=== PATIENT | male | born 1950 | race Caucasian/White ===

== ENCOUNTER 2016-11-23 11:58 | Inpatient (IN) | payer OTHER, MEDICARE ==
[~2016-11-23] VITALS: Ht 188 cm; Wt 95.0 kg
[~2016-11-23 11:58] MED LIST: HYDR-2595; HYDR25TA4; NIFE30TA70; NORTRIPTYLINE HCL 10 MG CAP; OMEPRAZOLE DR 20 MG CAPSULE
[2016-11-23 13:45] LABS: Basophils # (auto) 0 uL; Basophils % (auto) 0.1 % (0.0-2.0); Eosinophils # (auto) 0.2 uL; Eosinophils % (auto) 1.7 % (0.0-7.0); Hematocrit 54.3 % (41.0-53.0); Hemoglobin 17.5 g/dL (13.5-17.5); Lymphocytes # (auto) 2.8 uL; Lymphocytes % (auto) 23.5 % (10.0-50.0); Mean Corpuscular Hemoglobin 29.8 pg (28.0-32.0); Mean Corpuscular Hgb Conc. 32.3 g/dL (32.0-36.0); Mean Corpuscular Volume 92.5 fL (80.0-100.0); Mean Platelet Volume 8.6 fL (7.4-10.4); Monocytes # (auto) 0.6 uL; Monocytes % (auto) 5.2 % (0.0-12.0); Neutrophils # (auto) 8.2 uL; Neutrophils % (auto) 69.5 % (37.0-80.0); Platelet Count (auto) 264 10^3/uL (140-450); Red Cell Distribution Width 13.8 % (11.6-16.0); White Blood Cell 11.8 10^3/uL (4.4-10.8)
[2016-11-23] MEDS ORDERED: HYDROcodone-ACET 10/325MG TAB PO ONE (14:00)
[2016-11-23 14:01] LABS: Albumin 3.1 g/dL (3.4-5.0); Bilirubin, Total 1.4 mg/dL (0.2-1.0); Calcium 9.1 mg/dL (8.5-10.1); Magnesium 1.9 mg/dL (1.6-2.6); Potassium 4.7 mmol/L (3.5-5.1); Total Protein 7.9 g/dL (6.4-8.2)
[2016-11-23 14:09] LABS: B-Type Natriuretic Peptide 255.08 pg/mL (0-100); Temperature: 23.4 C (20.0-25.0)
[2016-11-23] MEDS ORDERED: LOPERAMIDE HCL 2 MG CAP PO ONE (14:45)
[2016-11-23] MEDS ORDERED: PROMETHAZINE HCL 25 MG/ML 1ML IV PRN (14:45)
[2016-11-23] MEDS ORDERED: ACETAMINOPHEN 500 MG TAB PO PRN (14:45)
[2016-11-23] MEDS ORDERED: SODIUM CHLORIDE 0.9% 500 ML IV ONE (14:45)
[2016-11-23] MEDS ORDERED: LORazepam 0.5 MG TAB PO PRN (14:45)
[2016-11-23] MEDS ORDERED: LACTULOSE 20Gm/30ML SOLN PO PRN (14:45)
[2016-11-23] MEDS ORDERED: MORPHINE SULF INJ 2 MG/ML SYRINGE 1ML IV PRN ×2 (14:45)
[2016-11-23] MEDS ORDERED: TEMAZEPAM 15 MG CAP PO PRN (14:45)
[2016-11-23] MEDS ORDERED: ASPirin 81 mg TAB PO ONE (15:00)
[2016-11-23 15:15] LABS: Partial Thromboplastin Time 49.5 sec (22.64-33.71)
[2016-11-23 15:16] LABS: Prothrombin Time 46.7 sec (9.37-12.3)
[2016-11-23 15:17] LABS: INR 4.53 (0.9-1.15)
[2016-11-23] MEDS: HYDROcodone-ACET 5/325MG TAB PO PRN (20:34)
[2016-11-23] MEDS: NORTRIPTYLINE HCL 10 MG CAP PO SCH (22:00)
[2016-11-24] VITALS (7 sets, daily range): BP systolic 109–127; BP diastolic 68–85
[2016-11-24] MEDS ORDERED: LOPERAMIDE HCL 2 MG CAP PO ONE (02:00)
[2016-11-24] MEDS: HYDROcodone-ACET 5/325MG TAB PO PRN ×3 (03:15→16:22)
[2016-11-24 03:41] LABS: Urine RBC None Seen /hpf (0 - 3)
[2016-11-24 03:50] LABS: Urine Bilirubin Negative (Negative); Urine Blood Negative /uL (Negative); Urine Color Yellow (Yellow); Urine Glucose Normal (Normal); Urine Ketone Negative (Negative); Urine Nitrite Negative (Negative); Urine Urobilinogen Normal (Negative); Urine pH 5.5 (5.0-8.0)
[2016-11-24 06:20] LABS: Basophils # (auto) 0.1 uL; Basophils % (auto) 0.6 % (0.0-2.0); Eosinophils # (auto) 0.3 uL; Eosinophils % (auto) 2.5 % (0.0-7.0); Hematocrit 52.1 % (41.0-53.0); Hemoglobin 16.8 g/dL (13.5-17.5); Lymphocytes # (auto) 2.6 uL; Lymphocytes % (auto) 26.1 % (10.0-50.0); Mean Corpuscular Hemoglobin 30.5 pg (28.0-32.0); Mean Corpuscular Hgb Conc. 32.2 g/dL (32.0-36.0); Mean Corpuscular Volume 94.8 fL (80.0-100.0); Mean Platelet Volume 7.9 fL (7.4-10.4); Monocytes # (auto) 0.7 uL; Monocytes % (auto) 6.5 % (0.0-12.0); Neutrophils # (auto) 6.5 uL; Neutrophils % (auto) 64.3 % (37.0-80.0); Platelet Count (auto) 206 10^3/uL (140-450); Red Cell Distribution Width 13.8 % (11.6-16.0)
[2016-11-24 06:34] LABS: Partial Thromboplastin Time 41.1 sec (22.64-33.71); Prothrombin Time 31.6 sec (9.37-12.3)
[2016-11-24 06:35] LABS: INR 3.07 (0.9-1.15)
[2016-11-24] MEDS: NITROGLYCERIN 0.4 MG SL TAB SL PRN ×3 (06:39→06:55)
[2016-11-24 06:46] LABS: Albumin 2.9 g/dL (3.4-5.0); Bilirubin, Total 1.2 mg/dL (0.2-1.0); Calcium 8.9 mg/dL (8.5-10.1); Potassium 4.1 mmol/L (3.5-5.1); Total Protein 6.9 g/dL (6.4-8.2)
[2016-11-24 07:03] LABS: B-Type Natriuretic Peptide 277.02 pg/mL (0-100); Temperature: 21.6 C (20.0-25.0)
[2016-11-24] MEDS: ASPirin 81 mg TAB PO SCH (09:51)
[2016-11-24] MEDS: ENOXAPARIN SOD 40 MG/0.4 ML SYRINGE SC SCH (09:51)
[2016-11-24] MEDS: SODIUM CHLORIDE 0.9% 1,000 ML IV SCH (12:21)
[2016-11-24] MEDS ORDERED: LOPERAMIDE HCL 2 MG CAP PO PRN (18:00)
[2016-11-24] MEDS: HYDROcodone-ACET 10/325MG TAB PO PRN (21:24)
[2016-11-24] MEDS: NORTRIPTYLINE HCL 10 MG CAP PO SCH (21:25)
[2016-11-25 05:08] VITALS: BP 118/79
[2016-11-25 05:36] LABS: Basophils # (auto) 0.1 uL; Basophils % (auto) 0.7 % (0.0-2.0); Eosinophils # (auto) 0.3 uL; Eosinophils % (auto) 3.1 % (0.0-7.0); Hematocrit 51.7 % (41.0-53.0); Hemoglobin 16.8 g/dL (13.5-17.5); Lymphocytes # (auto) 2.5 uL; Lymphocytes % (auto) 26.2 % (10.0-50.0); Mean Corpuscular Hemoglobin 30.2 pg (28.0-32.0); Mean Corpuscular Hgb Conc. 32.6 g/dL (32.0-36.0); Mean Corpuscular Volume 92.6 fL (80.0-100.0); Mean Platelet Volume 8.2 fL (7.4-10.4); Monocytes # (auto) 0.7 uL; Monocytes % (auto) 6.8 % (0.0-12.0); Neutrophils # (auto) 6.1 uL; Neutrophils % (auto) 63.2 % (37.0-80.0); Platelet Count (auto) 242 10^3/uL (140-450); Red Cell Distribution Width 13.5 % (11.6-16.0); White Blood Cell 9.6 10^3/uL (4.4-10.8)
[2016-11-25 05:53] LABS: INR 1.84 (0.9-1.15)
[2016-11-25 06:00] LABS: BUN/Creatinine Ratio 32.6; Calcium 9.4 mg/dL (8.5-10.1); Magnesium 1.7 mg/dL (1.6-2.6); Potassium 4.1 mmol/L (3.5-5.1)
[2016-11-25] MEDS: HYDROcodone-ACET 10/325MG TAB PO PRN (08:49)
[2016-11-25 09:00] VITALS: BP 125/83
[2016-11-25] MEDS: ASPirin 81 mg TAB PO SCH (11:30)
[2016-11-25] MEDS: SODIUM CHLORIDE 0.9% 1,000 ML IV SCH (11:30)
[2016-11-25] MEDS: ENOXAPARIN SOD 40 MG/0.4 ML SYRINGE SC SCH (11:30)
[2016-11-25 12:41] VITALS: BP 118/72
[2016-11-25 15:18] VITALS: BP 118/72
[2016-11-25] MEDS ORDERED: WARFARIN SODIUM 2.5 MG TAB PO ONE (17:00)
== END 2016-11-25 16:40 | disposition home or self-care (01) | DRG 314 ==
LOC: EDBD 11:58 → ER 12:04 → TELE 12:05 → TELE-CENTR 11-24 00:01
PROVIDERS: ADMIT Internal Medicine; ATTEND Internal Medicine
DX: I95.9 Hypotension, unspecified (principal); N17.0 Acute kidney failure with tubular necrosis; I13.0 Hypertensive heart and chronic kidney disease with heart failure and stage 1 through stage 4 chronic kidney disease, or unspecified chronic kidney disease; I50.42 Chronic combined systolic (congestive) and diastolic (congestive) heart failure; N17.9 Acute kidney failure, unspecified; D68.8 Other specified coagulation defects; I48.92 Unspecified atrial flutter; I48.91 Unspecified atrial fibrillation; K21.9 Gastro-esophageal reflux disease without esophagitis; N18.3 Chronic kidney disease, stage 3 (moderate); E86.0 Dehydration; F41.9 Anxiety disorder, unspecified; F10.10 Alcohol abuse, uncomplicated; G89.29 Other chronic pain; M54.5 Low back pain; Z90.49 Acquired absence of other specified parts of digestive tract; Z90.89 Acquired absence of other organs; Z82.49 Family history of ischemic heart disease and other diseases of the circulatory system; Z79.899 Other long term (current) drug therapy; Z87.891 Personal history of nicotine dependence
CPT/HCPCS: 36415; 71010; 80048; 80053; 80061; 81001; 82550; 83605; 83735; 83880; 84443; 84484; 85025; 85379; 85610; 85652; 85730; 86141; 87040; 87081; 87493; 93005; 93306; 96360; 99291; G0434

== ENCOUNTER 2017-05-09 16:05 | Emergency (ER) | payer MEDICARE, OTHER ==
[~2017-05-09] VITALS: Ht 185.4 cm; Wt 93.0 kg
[2017-05-09 17:03] LABS: Basophils # (auto) 0 uL; Basophils % (auto) 0.4 % (0.0-2.0); CONDITION Y; Eosinophils # (auto) 0.1 uL; Eosinophils % (auto) 0.9 % (0.0-7.0); Hematocrit 40.7 % (41.0-53.0); Hemoglobin 13.9 g/dL (13.5-17.5); Lymphocytes # (auto) 0.9 uL; Lymphocytes % (auto) 16.3 % (10.0-50.0); Mean Corpuscular Hemoglobin 31.6 pg (28.0-32.0); Mean Corpuscular Volume 92.8 fL (80.0-100.0); Mean Platelet Volume 8.4 fL (7.4-10.4); Monocytes # (auto) 0.7 uL; Monocytes % (auto) 12.3 % (0.0-12.0); Neutrophils # (auto) 3.9 uL; Neutrophils % (auto) 70.1 % (37.0-80.0); Platelet Count (auto) 153 10^3/uL (140-450); Red Cell Distribution Width 13.4 % (11.6-16.0); White Blood Cell 5.5 10^3/uL (4.4-10.8)
[2017-05-09 17:07] LABS: Albumin 2.7 g/dL (3.4-5.0); BUN/Creatinine Ratio 24.6; Magnesium 1.1 mg/dL (1.6-2.6); Potassium 4.7 mmol/L (3.5-5.1)
[2017-05-09 17:09] LABS: Bilirubin, Total 0.8 mg/dL (0.2-1.0); Total Protein 6.7 g/dL (6.4-8.2)
[2017-05-09] MEDS ORDERED: SODIUM CHLORIDE 0.9% 1,000 ML IV ONE ×2 (18:00→19:15)
[2017-05-09] MEDS ORDERED: HYDROcodone-ACET 7.5/325MG TAB PO ONE (18:00)
[2017-05-09] MEDS ORDERED: MAGNESIUM CITRATE SOLUTION 300 ML BTL PO ONE (19:15)
[2017-05-09] MEDS ORDERED: ONDANSETRON HCL 4 MG/2 ML VIAL IV ONE (19:15)
[2017-05-09] MEDS ORDERED: SODIUM CHLORIDE 0.9% 500 ML IV ONE (22:00)
[2017-05-09] MEDS ORDERED: HYDROcodone-ACET 10/325MG TAB PO ONE (22:30)
[2017-05-10] MEDS ORDERED: metroNIDAZOLE 500 MG TAB PO ONE (03:45)
[2017-05-10] MEDS ORDERED: HYDROcodone-ACET 5/325MG TAB PO ONE (05:15)
[2017-05-10] MEDS ORDERED: LOPERAMIDE HCL 2 MG CAP PO ONE (07:45)
[2017-05-10 10:37] VITALS: BP 91/68
== END 2017-05-10 10:51 | disposition short-term general hospital (02) ==
LOC: EDBD 16:05 → ER 16:26
DX: E86.0 Dehydration (principal); R53.1 Weakness; C80.1 Malignant (primary) neoplasm, unspecified; C79.89 Secondary malignant neoplasm of other specified sites; I50.9 Heart failure, unspecified; N18.9 Chronic kidney disease, unspecified; K21.9 Gastro-esophageal reflux disease without esophagitis; I13.0 Hypertensive heart and chronic kidney disease with heart failure and stage 1 through stage 4 chronic kidney disease, or unspecified chronic kidney disease; G89.29 Other chronic pain; M54.5 Low back pain; F17.210 Nicotine dependence, cigarettes, uncomplicated
CPT/HCPCS: 36415; 80053; 82565; 83735; 84484; 84520; 85025; 85048; 87045; 87899; 93005; 96360; 96361; 99285; J7030

== ENCOUNTER 2017-05-15 21:08 | Emergency (ER) | payer OTHER ==
[~2017-05-15] VITALS: Ht 185.4 cm; Wt 89.8 kg
[2017-05-15 21:58] LABS: Basophils # (auto) 0 uL; Basophils % (auto) 0.5 % (0.0-2.0); CONDITION Y; Eosinophils # (auto) 0.1 uL; Eosinophils % (auto) 2.1 % (0.0-7.0); Hematocrit 37.6 % (41.0-53.0); Hemoglobin 12.8 g/dL (13.5-17.5); Lymphocytes # (auto) 1.1 uL; Lymphocytes % (auto) 19.6 % (10.0-50.0); Mean Corpuscular Hemoglobin 31.8 pg (28.0-32.0); Mean Corpuscular Hgb Conc. 34.2 g/dL (32.0-36.0); Mean Corpuscular Volume 93.2 fL (80.0-100.0); Mean Platelet Volume 7.3 fL (7.4-10.4); Monocytes # (auto) 0.8 uL; Monocytes % (auto) 14.7 % (0.0-12.0); Neutrophils # (auto) 3.6 uL; Neutrophils % (auto) 63.1 % (37.0-80.0); Platelet Count (auto) 224 10^3/uL (140-450); Red Cell Distribution Width 13.9 % (11.6-16.0); White Blood Cell 5.7 10^3/uL (4.4-10.8)
[2017-05-15 22:14] LABS: INR 3.06 (0.9-1.15); Partial Thromboplastin Time 41.1 sec (22.64-33.71)
[2017-05-15 22:15] LABS: Prothrombin Time 33.7 sec (9.37-12.3)
[2017-05-15 22:24] LABS: Albumin 2.7 g/dL (3.4-5.0); BUN/Creatinine Ratio 17.1; Bilirubin, Total 0.6 mg/dL (0.2-1.0); Calcium 7.8 mg/dL (8.5-10.1); Potassium 4.3 mmol/L (3.5-5.1); Total Protein 6.7 g/dL (6.4-8.2)
[2017-05-16] MEDS ORDERED: MAGNESIUM OXIDE 400 MG TAB PO ONE (00:15)
[2017-05-16] MEDS: MAGNESIUM SULFATE 1GM/100ML 100 ML IV SCH ×3 (01:54→04:27)
[2017-05-16 03:23] VITALS: BP 103/61
[2017-05-16 04:07] LABS: Urine Bilirubin 1+ (Negative); Urine Blood Negative /uL (Negative); Urine Color Orange (Yellow); Urine Glucose Normal (Normal); Urine Hyaline Cast MOD /lpf (0 - 2); Urine Mucus FEW (None Seen); Urine Nitrite Negative (Negative); Urine RBC <1 /hpf (0 - 3); Urine Squamous Epithelial Cell FEW /hpf (<5); Urine pH 5.5 (5.0-8.0)
[2017-05-16 04:13] LABS: Urine Ketone 1+ (Negative)
== END 2017-05-16 04:28 | disposition home or self-care (01) ==
LOC: ER 21:09
DX: E83.42 Hypomagnesemia (principal); R42 Dizziness and giddiness; R53.1 Weakness; I48.91 Unspecified atrial fibrillation; K21.9 Gastro-esophageal reflux disease without esophagitis; I13.0 Hypertensive heart and chronic kidney disease with heart failure and stage 1 through stage 4 chronic kidney disease, or unspecified chronic kidney disease; N18.9 Chronic kidney disease, unspecified; I50.9 Heart failure, unspecified; F41.9 Anxiety disorder, unspecified; F17.210 Nicotine dependence, cigarettes, uncomplicated
CPT/HCPCS: 36415; 80053; 81001; 83735; 84484; 85025; 85610; 85730; 93005; 99285; J3475

== ENCOUNTER 2017-05-23 11:40 | Observation (INO) | payer OTHER, MEDICARE ==
[~2017-05-23] VITALS: Ht 185.4 cm; Wt 89.8 kg
[2017-05-23 12:26] LABS: Basophils # (auto) 0 uL; Basophils % (auto) 0.4 % (0.0-2.0); CONDITION Y; Eosinophils # (auto) 0.1 uL; Eosinophils % (auto) 0.9 % (0.0-7.0); Hematocrit 35.3 % (41.0-53.0); Hemoglobin 12.1 g/dL (13.5-17.5); Lymphocytes # (auto) 1.1 uL; Lymphocytes % (auto) 13.4 % (10.0-50.0); Mean Corpuscular Hemoglobin 31.9 pg (28.0-32.0); Mean Corpuscular Hgb Conc. 34.4 g/dL (32.0-36.0); Mean Corpuscular Volume 92.8 fL (80.0-100.0); Mean Platelet Volume 7.9 fL (7.4-10.4); Monocytes # (auto) 0.8 uL; Monocytes % (auto) 9.9 % (0.0-12.0); Neutrophils # (auto) 6.3 uL; Neutrophils % (auto) 75.4 % (37.0-80.0); Platelet Count (auto) 332 10^3/uL (140-450); Red Cell Distribution Width 14.5 % (11.6-16.0); White Blood Cell 8.4 10^3/uL (4.4-10.8)
[2017-05-23 12:29] LABS: Urine RBC None Seen /hpf (0 - 3)
[2017-05-23] MEDS ORDERED: SODIUM CHLORIDE 0.9% 1,000 ML IVB ONE (12:36)
[2017-05-23 12:40] LABS: Albumin 2.5 g/dL (3.4-5.0); BUN/Creatinine Ratio 21.2; Bilirubin, Total 0.8 mg/dL (0.2-1.0); Calcium 8.9 mg/dL (8.5-10.1); Potassium 4.5 mmol/L (3.5-5.1); Total Protein 6.4 g/dL (6.4-8.2)
[2017-05-23 12:55] LABS: Urine Bilirubin Negative (Negative); Urine Blood Negative /uL (Negative); Urine Color Yellow (Yellow); Urine Glucose Normal (Normal); Urine Ketone Negative (Negative); Urine Nitrite Negative (Negative); Urine Urobilinogen Normal (Negative); Urine pH 8.5 (5.0-8.0)
[2017-05-23 13:09] LABS: INR 1.23 (0.9-1.15); Partial Thromboplastin Time 30.8 sec (22.64-33.71)
[2017-05-23 13:11] LABS: Prothrombin Time 13.4 sec (9.37-12.3)
[2017-05-23 13:35] LABS: B-Type Natriuretic Peptide 259.71 pg/mL (0-100)
[2017-05-23 13:36] LABS: Temperature: 22.9 C (20.0-25.0)
[2017-05-23] MEDS ORDERED: SODIUM CHLORIDE 0.9% 1,000 ML IV ONE (17:30)
[2017-05-23] MEDS ORDERED: HYDROcodone-ACET 10/325MG TAB PO ONE (17:45)
[2017-05-23 20:31] VITALS: BP 112/67
== END 2017-05-23 20:58 | disposition short-term general hospital (02) | DRG 149 ==
LOC: EDBD 11:40 → ER 11:40 → OVERFLOW 12:36 → ER 20:58
PROVIDERS: ADMIT Family Medicine; ATTEND Family Medicine
DX: R42 Dizziness and giddiness (principal); I13.0 Hypertensive heart and chronic kidney disease with heart failure and stage 1 through stage 4 chronic kidney disease, or unspecified chronic kidney disease; C02.9 Malignant neoplasm of tongue, unspecified; C14.0 Malignant neoplasm of pharynx, unspecified; I95.9 Hypotension, unspecified; N18.9 Chronic kidney disease, unspecified; K21.9 Gastro-esophageal reflux disease without esophagitis; F41.9 Anxiety disorder, unspecified; I48.91 Unspecified atrial fibrillation; F17.210 Nicotine dependence, cigarettes, uncomplicated; Z82.49 Family history of ischemic heart disease and other diseases of the circulatory system; Z85.810 Personal history of malignant neoplasm of tongue
CPT/HCPCS: 36415; 70450; 71020; 80053; 81001; 82962; 83735; 83880; 84443; 84484; 85025; 85610; 85730; 93005; 96360; 96361; 99285; G0378; J7030

== ENCOUNTER 2017-11-18 14:58 | Inpatient (IN) | payer MEDICARE, OTHER ==
[~2017-11-18] VITALS: Ht 190.5 cm; Wt 108.9 kg
[~2017-11-18 14:58] MED LIST changes: +ATO40T PO; -HYDR-2595; +HYDR-4683 PO; -HYDR25TA4; +LISI2.5T47 PO; +METO-169 PO; -NIFE30TA70; -NORTRIPTYLINE HCL 10 MG CAP; +WARF5TAB71 PO
[2017-11-18] MEDS ORDERED: ASPirin 81 mg TAB PO ONE (17:30)
[2017-11-18] MEDS ORDERED: HYDROcodone-ACET 10/325MG TAB PO ONE (17:45)
[2017-11-18 17:48] LABS: Basophils # (auto) 0.1 uL; Basophils % (auto) 1.1 % (0.0-2.0); Eosinophils # (auto) 0.1 uL; Eosinophils % (auto) 0.9 % (0.0-7.0); Hematocrit 43.8 % (41.0-53.0); Lymphocytes # (auto) 1.3 uL; Lymphocytes % (auto) 13.8 % (10.0-50.0); Mean Corpuscular Hemoglobin 31.7 pg (28.0-32.0); Mean Corpuscular Hgb Conc. 34.2 g/dL (32.0-36.0); Mean Corpuscular Volume 92.7 fL (80.0-100.0); Monocytes % (auto) 10.3 % (0.0-12.0); Neutrophils # (auto) 6.8 uL; Neutrophils % (auto) 73.9 % (37.0-80.0); Platelet Count (auto) 223 10^3/uL (140-450); Red Blood Cells 4.73 10^6/uL (4.5-5.90); Red Cell Distribution Width 15.2 % (11.8-14.3); White Blood Cell 9.2 10^3/uL (4.4-10.8)
[2017-11-18 18:04] LABS: Albumin 3.4 g/dL (3.4-5.0); BUN/Creatinine Ratio 17.9; Calcium 6.7 mg/dL (8.5-10.1); Potassium 3.6 mmol/L (3.5-5.1); Total Protein 7.6 g/dL (6.4-8.2)
[2017-11-18 18:10] LABS: Partial Thromboplastin Time 61.2 sec (22.64-33.71); Prothrombin Time 77.1 sec (9.37-12.3)
[2017-11-18] MEDS ORDERED: MAGNESIUM SULFATE 1GM/100ML 100 ML IV ONE ×2 (18:30→21:31)
[2017-11-18 18:36] LABS: INR 6.94 (0.9-1.15)
[2017-11-18] MEDS: MAGNESIUM SULFATE 1GM/100ML 100 ML IV SCH ×2 (20:30→21:30)
[2017-11-18] MEDS ORDERED: PHYTONADIONE (VIT K)10 MG/ML 1ML VIAL SUBCUT ONE (21:15)
[2017-11-19] MEDS ORDERED: HYDROcodone-ACET 5/325MG TAB PO PRN (03:30)
[2017-11-19] MEDS ORDERED: ACETAMINOPHEN 500 MG TAB PO PRN (03:30)
[2017-11-19] MEDS ORDERED: MORPHINE SULFATE 4 MG/ML SYR/VIAL IV PRN ×2 (03:30)
[2017-11-19] MEDS ORDERED: NITROGLYCERIN 0.4 MG SL TAB SL PRN (03:30)
[2017-11-19] MEDS ORDERED: ONDANSETRON HCL 4 MG/2 ML VIAL IV PRN (03:30)
[2017-11-19] MEDS ORDERED: TEMAZEPAM 15 MG CAP PO PRN (03:30)
[2017-11-19 06:47] LABS: Basophils # (auto) 0.1 uL; Basophils % (auto) 1.3 % (0.0-2.0); Eosinophils # (auto) 0.1 uL; Eosinophils % (auto) 1.3 % (0.0-7.0); Hemoglobin 13.4 g/dL (13.5-17.5); Lymphocytes % (auto) 12.6 % (10.0-50.0); Mean Corpuscular Hemoglobin 32.6 pg (28.0-32.0); Mean Corpuscular Hgb Conc. 35.3 g/dL (32.0-36.0); Mean Corpuscular Volume 92.5 fL (80.0-100.0); Monocytes % (auto) 12.2 % (0.0-12.0); Neutrophils # (auto) 6.1 uL; Neutrophils % (auto) 72.6 % (37.0-80.0); Platelet Count (auto) 193 10^3/uL (140-450); Red Blood Cells 4.11 10^6/uL (4.5-5.90); Red Cell Distribution Width 15.1 % (11.8-14.3); White Blood Cell 8.3 10^3/uL (4.4-10.8)
[2017-11-19 07:04] LABS: BUN/Creatinine Ratio 20.7; Calcium 6.4 mg/dL (8.5-10.1); Magnesium 1.7 mg/dL (1.6-2.6); Potassium 3.6 mmol/L (3.5-5.1)
[2017-11-19] MEDS ORDERED: METOPROLOL SUCCINATE XL 50 MG TAB PO SCH (10:00)
[2017-11-19 11:12] LABS: INR 2.05 (0.9-1.15); Prothrombin Time 22.5 sec (9.37-12.3)
[2017-11-19 12:28] VITALS: BP 127/73
[2017-11-19 12:50] VITALS: BP 134/79
[2017-11-19] MEDS ORDERED: ATORVASTATIN 20 MG TAB PO SCH (22:00)
== END 2017-11-19 13:06 | disposition home or self-care (01) | DRG 313 ==
LOC: EDBD 14:58 → EDUNIT# 14:58 → ER 15:04 → TELE 15:05
PROVIDERS: ADMIT Nurse Practitioner Family; ATTEND Nurse Practitioner Family
DX: R07.9 Chest pain, unspecified (principal); I42.9 Cardiomyopathy, unspecified; E83.42 Hypomagnesemia; I48.0 Paroxysmal atrial fibrillation; I13.0 Hypertensive heart and chronic kidney disease with heart failure and stage 1 through stage 4 chronic kidney disease, or unspecified chronic kidney disease; I50.9 Heart failure, unspecified; T45.515A Adverse effect of anticoagulants, initial encounter; N18.3 Chronic kidney disease, stage 3 (moderate); F17.210 Nicotine dependence, cigarettes, uncomplicated; F41.9 Anxiety disorder, unspecified; K21.9 Gastro-esophageal reflux disease without esophagitis; Z79.899 Other long term (current) drug therapy; Z82.49 Family history of ischemic heart disease and other diseases of the circulatory system
CPT/HCPCS: 36415; 70450; 71010; 80048; 80053; 83735; 83880; 84443; 84484; 85025; 85379; 85610; 85730; 87400; 93005; 94761; 96365; 96366; 96375; J2405; J3430

== ENCOUNTER 2018-01-09 08:51 | Emergency (ER) | payer MEDICARE, OTHER ==
[~2018-01-09] VITALS: Ht 185.4 cm; Wt 104.3 kg
[2018-01-09 09:12] VITALS: BP 100/60
[2018-01-09] MEDS ORDERED: LIDOCAINE 1% HCL (LOCAL ANESTH.) INJ 20ML MDV IN ONE (10:15)
[2018-01-09] MEDS ORDERED: HYDROcodone-ACET 7.5/325MG TAB PO ONE (10:30)
[2018-01-09] MEDS ORDERED: KETOROLAC TROMETH 60MG/2ML VIAL IM ONE (10:30)
== END 2018-01-09 11:15 | disposition home or self-care (01) ==
LOC: ER 08:51 → EDBD 08:51 → ER 11:15
DX: M17.12 Unilateral primary osteoarthritis, left knee (principal); I11.0 Hypertensive heart disease with heart failure; I50.9 Heart failure, unspecified; K21.9 Gastro-esophageal reflux disease without esophagitis; I48.91 Unspecified atrial fibrillation; F17.210 Nicotine dependence, cigarettes, uncomplicated; Z79.899 Other long term (current) drug therapy
CPT/HCPCS: 73562; 96372; 99284; J1885; J2001

== ENCOUNTER 2018-02-21 10:37 | Emergency (ER) | payer OTHER ==
[~2018-02-21] VITALS: Ht 185.4 cm; Wt 97.5 kg
[2018-02-21] MEDS ORDERED: ASPirin 81 mg TAB PO ONE (11:15)
[2018-02-21] MEDS ORDERED: FUROSEMIDE 40 MG/4 ML VIAL IV ONE (11:15)
[2018-02-21 11:32] LABS: Basophils # (auto) 0.2 uL; Eosinophils # (auto) 0.1 uL; Hemoglobin 11.4 g/dL (13.5-17.5); Lymphocytes # (auto) 1.2 uL; Lymphocytes % (auto) 10.5 % (10.0-50.0); Mean Corpuscular Hemoglobin 31.1 pg (28.0-32.0); Mean Corpuscular Hgb Conc. 32.6 g/dL (32.0-36.0); Mean Corpuscular Volume 95.4 fL (80.0-100.0); Monocytes # (auto) 0.7 uL; Monocytes % (auto) 5.7 % (0.0-12.0); Neutrophils # (auto) 9.4 uL; Neutrophils % (auto) 80.8 % (37.0-80.0); Platelet Count (auto) 300 10^3/uL (140-450); Red Blood Cells 3.67 10^6/uL (4.5-5.90); Red Cell Distribution Width 12.6 % (11.8-14.3); White Blood Cell 11.7 10^3/uL (4.4-10.8)
[2018-02-21 11:45] LABS: INR 2.73 (0.9-1.15); Partial Thromboplastin Time 47.4 sec (22.64-33.71); Prothrombin Time 30.1 sec (9.37-12.3)
[2018-02-21 11:50] LABS: Alanine Aminotransferase 19 U/L (16-61); Albumin 2.2 g/dL (3.4-5.0); Alkaline Phosphatase 166 U/L (45-117); Anion Gap 10 (5-15); Aspartate Aminotransferase 20 U/L (15-37); BUN/Creatinine Ratio 8.1; Bilirubin, Total 0.7 mg/dL (0.2-1.0); Blood Urea Nitrogen 10 mg/dL (7-18); Carbon Dioxide 23 mmol/L (21-32); Chloride 108 mmol/L (98-107); GFR African American 75 mL/min; GFR Non-African American 62 mL/min; Glucose 96 mg/dL (74-106); Sodium 141 mmol/L (136-145); Total Protein 6.6 g/dL (6.4-8.2)
[2018-02-21 11:55] LABS: Calcium 5.5 mg/dL (8.5-10.1)
[2018-02-21] MEDS ORDERED: CALCIUM GLUC 4.65meq/50ml D5AE 50 ML IV ONE (12:00)
[2018-02-21 12:24] VITALS: BP 109/61
[2018-02-21 12:56] LABS: Urine Bacteria NONE SEEN /hpf (None Seen); Urine Blood Negative /uL (Negative); Urine Specific Gravity 1.008 (1.001-1.035); Urine WBC <1 /hpf (0 - 3)
== END 2018-02-21 14:04 | disposition home or self-care (01) ==
LOC: EDBD 10:37 → ER 10:37
DX: R42 Dizziness and giddiness (principal); D64.9 Anemia, unspecified; E83.51 Hypocalcemia; E46 Unspecified protein-calorie malnutrition; F17.210 Nicotine dependence, cigarettes, uncomplicated; I11.0 Hypertensive heart disease with heart failure; I48.91 Unspecified atrial fibrillation; I50.42 Chronic combined systolic (congestive) and diastolic (congestive) heart failure; K21.9 Gastro-esophageal reflux disease without esophagitis; Z79.01 Long term (current) use of anticoagulants; Z79.899 Other long term (current) drug therapy
CPT/HCPCS: 36415; 70450; 71045; 80053; 81001; 83880; 84484; 85025; 85610; 85730; 93005; 96365; 96375; 99285; J0610; J1940

== ENCOUNTER 2018-07-29 08:30 | Emergency (ER) | payer OTHER ==
[~2018-07-29] VITALS: Ht 185.4 cm; Wt 90.7 kg
[2018-07-29] MEDS ORDERED: ASPirin 81 mg TAB PO ONE (09:00)
[2018-07-29] MEDS ORDERED: FUROSEMIDE 40 MG/4 ML VIAL IV ONE (09:00)
[2018-07-29] MEDS ORDERED: HYDROcodone-ACET 10/325MG TAB PO ONE (09:30)
[2018-07-29 09:43] LABS: Alanine Aminotransferase 10 U/L (16-61); Albumin 3.2 g/dL (3.4-5.0); Anion Gap 10 (5-15); Aspartate Aminotransferase 12 U/L (15-37); BUN/Creatinine Ratio 21.4; Blood Urea Nitrogen 18 mg/dL (7-18); Carbon Dioxide 25 mmol/L (21-32); Chloride 107 mmol/L (98-107); GFR African American 117 mL/min; GFR Non-African American 97 mL/min; Glucose 79 mg/dL (74-106); INR 1.11 (0.9-1.15); Partial Thromboplastin Time 36.5 sec (23.78-33.04); Potassium 3.8 mmol/L (3.5-5.1); Prothrombin Time 11.8 sec (9.27-12.13); Sodium 142 mmol/L (136-145)
[2018-07-29 09:44] LABS: Basophils # (auto) 0.1 uL; Basophils % (auto) 0.9 % (0.0-2.0); Eosinophils # (auto) 0.2 uL; Eosinophils % (auto) 1.8 % (0.0-7.0); Hematocrit 39.3 % (41.0-53.0); Hemoglobin 13.1 g/dL (13.5-17.5); Lymphocytes # (auto) 1.2 uL; Lymphocytes % (auto) 13.3 % (10.0-50.0); Mean Corpuscular Hgb Conc. 33.4 g/dL (32.0-36.0); Mean Corpuscular Volume 95.8 fL (80.0-100.0); Monocytes # (auto) 0.7 uL; Neutrophils # (auto) 6.6 uL; Nucleated Red Blood Cells % 0.1 %; Platelet Count (auto) 205 10^3/uL (140-450); Red Cell Distribution Width 13.8 % (11.8-14.3); White Blood Cell 8.7 10^3/uL (4.4-10.8)
[2018-07-29 09:47] LABS: Alkaline Phosphatase 130 U/L (45-117); Bilirubin, Total 0.7 mg/dL (0.2-1.0); Total Protein 6.6 g/dL (6.4-8.2)
[2018-07-29 12:01] VITALS: BP 167/67
== END 2018-07-29 12:01 | disposition home or self-care (01) ==
LOC: EDBD 08:30 → ER 08:30
DX: I12.9 Hypertensive chronic kidney disease with stage 1 through stage 4 chronic kidney disease, or unspecified chronic kidney disease (principal); N18.9 Chronic kidney disease, unspecified; K21.9 Gastro-esophageal reflux disease without esophagitis; I48.91 Unspecified atrial fibrillation; F17.210 Nicotine dependence, cigarettes, uncomplicated; Z90.49 Acquired absence of other specified parts of digestive tract
CPT/HCPCS: 36415; 71045; 80053; 83880; 84484; 85025; 85610; 85730; 96374; 99285; J1940; 93005

== ENCOUNTER 2018-12-30 06:16 | Emergency (ER) | payer OTHER ==
[~2018-12-30] VITALS: Ht 170.2 cm; Wt 99.8 kg
[2018-12-30] MEDS ORDERED: SODIUM CHLORIDE 0.9% 1,000 ML IV ONE (07:07)
[2018-12-30 07:57] LABS: Basophils # (auto) 0 uL; Basophils % (auto) 0.5 % (0.0-2.0); Eosinophils # (auto) 0.1 uL; Eosinophils % (auto) 0.7 % (0.0-7.0); Hematocrit 36.8 % (41.0-53.0); Hemoglobin 12.5 g/dL (13.5-17.5); Lymphocytes # (auto) 0.8 uL; Lymphocytes % (auto) 8.7 % (10.0-50.0); Mean Corpuscular Hemoglobin 33.3 pg (28.0-32.0); Mean Corpuscular Hgb Conc. 33.9 g/dL (32.0-36.0); Mean Corpuscular Volume 98.3 fL (80.0-100.0); Monocytes # (auto) 0.9 uL; Neutrophils # (auto) 7.1 uL; Neutrophils % (auto) 80.1 % (37.0-80.0); Platelet Count (auto) 192 10^3/uL (140-450); Red Blood Cells 3.74 10^6/uL (4.5-5.90); Red Cell Distribution Width 14.6 % (11.8-14.3); White Blood Cell 8.9 10^3/uL (4.4-10.8)
[2018-12-30 08:17] LABS: INR 1.45 (0.9-1.15); Prothrombin Time 15.2 sec (9.27-12.13)
[2018-12-30 08:21] LABS: Albumin 2.1 g/dL (3.4-5.0); Chloride 108 mmol/L (98-107); Potassium 4.7 mmol/L (3.5-5.1); Sodium 144 mmol/L (136-145)
[2018-12-30 08:30] LABS: Alanine Aminotransferase 22 U/L (16-61); Alkaline Phosphatase 189 U/L (45-117); Anion Gap 8 (5-15); Aspartate Aminotransferase 63 U/L (15-37); BUN/Creatinine Ratio 6.4; Bilirubin, Total 0.9 mg/dL (0.2-1.0); Blood Urea Nitrogen 7 mg/dL (7-18); Carbon Dioxide 28 mmol/L (21-32); GFR African American 87 mL/min; GFR Non-African American 72 mL/min; Glucose 101 mg/dL (74-106); Total Protein 5.3 g/dL (6.4-8.2)
[2018-12-30 08:47] LABS: Calcium < 5.0 mg/dL (8.5-10.1)
[2018-12-30 08:48] LABS: Magnesium 0.7 mg/dL (1.6-2.6)
[2018-12-30] MEDS ORDERED: CALCIUM GLUC 4.65meq/50ml D5AE 50 ML IV ONE (09:00)
[2018-12-30] MEDS ORDERED: MAGNESIUM SULFATE 1GM/100ML 100 ML IV ONE (09:00)
[2018-12-30] MEDS ORDERED: HYDROcodone-ACET 10/325MG TAB PO ONE (10:00)
[2018-12-30 12:38] VITALS: BP 88/59
== END 2018-12-30 12:52 | disposition short-term general hospital (02) ==
LOC: EDBD 06:16 → ER 06:16
DX: I12.9 Hypertensive chronic kidney disease with stage 1 through stage 4 chronic kidney disease, or unspecified chronic kidney disease (principal); N18.3 Chronic kidney disease, stage 3 (moderate); E83.51 Hypocalcemia; E83.42 Hypomagnesemia; I48.91 Unspecified atrial fibrillation; K21.9 Gastro-esophageal reflux disease without esophagitis; R42 Dizziness and giddiness; F41.9 Anxiety disorder, unspecified; F17.210 Nicotine dependence, cigarettes, uncomplicated; Z90.49 Acquired absence of other specified parts of digestive tract
CPT/HCPCS: 36415; 70450; 71045; 74176; 80053; 83735; 83880; 84484; 85025; 85610; 85730; 93005; 96361; 96365; 96368; 99285; J0610; J3475; J7030

== ENCOUNTER 2019-02-04 05:58 | Emergency (ER) | payer OTHER, MEDICARE ==
[~2019-02-04] VITALS: Ht 188 cm; Wt 104.3 kg
[2019-02-04 07:06] LABS: Basophils # (auto) 0.1 uL; Lymphocytes # (auto) 1.2 uL; Monocytes # (auto) 0.5 uL; Monocytes % (auto) 7.4 % (0.0-12.0); Nucleated Red Blood Cells % 0.1 %
[2019-02-04 07:07] LABS: Basophils % (auto) 1.1 % (0.0-2.0); Eosinophils # (auto) 0.2 uL; Eosinophils % (auto) 2.3 % (0.0-7.0); Hematocrit 35.9 % (41.0-53.0); Hemoglobin 12.2 g/dL (13.5-17.5); Lymphocytes % (auto) 18.1 % (10.0-50.0); Mean Corpuscular Hgb Conc. 34.1 g/dL (32.0-36.0); Mean Corpuscular Volume 102.8 fL (80.0-100.0); Neutrophils # (auto) 4.8 uL; Neutrophils % (auto) 71.1 % (37.0-80.0); Platelet Count (auto) 188 10^3/uL (140-450); Red Blood Cells 3.49 10^6/uL (4.5-5.90); Red Cell Distribution Width 15.8 % (11.8-14.3); White Blood Cell 6.7 10^3/uL (4.4-10.8)
[2019-02-04 07:21] LABS: INR 1.33 (0.9-1.15); Partial Thromboplastin Time 42.7 sec (23.78-33.04)
[2019-02-04 07:22] LABS: Alanine Aminotransferase 13 U/L (16-61); Albumin 2.3 g/dL (3.4-5.0); Anion Gap 7 (5-15); Aspartate Aminotransferase 29 U/L (15-37); Blood Urea Nitrogen 11 mg/dL (7-18); Carbon Dioxide 26 mmol/L (21-32); Chloride 110 mmol/L (98-107); Glucose 83 mg/dL (74-106); Potassium 3.9 mmol/L (3.5-5.1); Sodium 143 mmol/L (136-145)
[2019-02-04 07:27] LABS: Alkaline Phosphatase 148 U/L (45-117); BUN/Creatinine Ratio 12.1; Bilirubin, Total 1.2 mg/dL (0.2-1.0); GFR African American 107 mL/min; GFR Non-African American 88 mL/min; Total Protein 5.6 g/dL (6.4-8.2)
[2019-02-04 09:01] LABS: Urine Bacteria NONE SEEN /hpf (None Seen); Urine Blood Negative /uL (Negative); Urine Specific Gravity 1.016 (1.001-1.035); Urine WBC <1 /hpf (0 - 3)
[2019-02-04] MEDS ORDERED: NITROGLYCERIN 0.4 MG SL TAB SL ONE (09:30)
[2019-02-04] MEDS ORDERED: ONDANSETRON HCL 4 MG/2 ML VIAL IV ONE (09:30)
[2019-02-04] MEDS ORDERED: MORPHINE SULF INJ 2 MG/ML SYRINGE 1ML IV ONE (09:30)
[2019-02-04] MEDS ORDERED: HYDROcodone-ACET 10/325MG TAB PO ONE (14:30)
[2019-02-04 16:14] VITALS: BP 135/87
== END 2019-02-04 16:58 | disposition short-term general hospital (02) ==
LOC: EDUNIT# 05:58 → ER 05:58 → EDBD 05:58 → ER 16:58
DX: I12.9 Hypertensive chronic kidney disease with stage 1 through stage 4 chronic kidney disease, or unspecified chronic kidney disease (principal); N18.3 Chronic kidney disease, stage 3 (moderate); I48.91 Unspecified atrial fibrillation; I89.0 Lymphedema, not elsewhere classified; Z90.49 Acquired absence of other specified parts of digestive tract
CPT/HCPCS: 36415; 71045; 80053; 81001; 83880; 84484; 85025; 85610; 85730; 93005; 93971; 96374; 96375; 99285; J2270; J2405

== ENCOUNTER 2021-07-08 17:59 | Inpatient (IN) | payer MEDICARE, OTHER ==
[~2021-07-08] VITALS: Ht 190.5 cm; Wt 108.5 kg
[~2021-07-08 17:59] MED LIST changes: +DABI150C5 PO; +DOCU-94 PO; +FURO40TA4 PO; -HYDR-4683 PO; +LISI-716 PO; -LISI2.5T47 PO; -METO-169 PO; +METO-289 PO; +NIFE1TAB31 PO; +OME20T PO; -OMEPRAZOLE DR 20 MG CAPSULE; -WARF5TAB71 PO
[2021-07-08] MEDS ORDERED: methylPREDNISolone SOD SUCC 125 MG/2 ML VL IV ONE (18:15)
[2021-07-08 18:34] LABS: Basophils # (auto) 0.1 10 ^3/uL (0-0.2); Basophils % (auto) 0.8 % (0.0-2.0); Eosinophils # (auto) 0.3 10 ^3/uL (0-0.8); Eosinophils % (auto) 2.1 % (0.0-7.0); Hematocrit 43.4 % (41.0-53.0); Hemoglobin 14.5 g/dL (13.5-17.5); Lymphocytes # (auto) 2.4 10 ^3/uL (0.4-5.4); Lymphocytes % (auto) 15.5 % (10.0-50.0); Mean Corpuscular Hemoglobin 30.3 pg (28.0-32.0); Mean Corpuscular Hgb Conc. 33.4 g/dL (32.0-36.0); Mean Corpuscular Volume 90.6 fL (80.0-100.0); Monocytes # (auto) 1.2 10 ^3/uL (0-1.3); Monocytes % (auto) 7.4 % (0.0-12.0); Neutrophils # (auto) 11.5 10 ^3/uL (1.6-8.6); Neutrophils % (auto) 74.2 % (37.0-80.0); Red Blood Cells 4.79 10^6/uL (4.5-5.90); Red Cell Distribution Width 13.6 % (11.8-14.3); White Blood Cell 15.5 10^3/uL (4.4-10.8)
[2021-07-08] MEDS ORDERED: FUROSEMIDE 40 MG/4 ML VIAL IV ONE (18:45)
[2021-07-08] MEDS ORDERED: dilTIAZem 25 MG/5 ML VIAL IV ONE (18:45)
[2021-07-08 18:57] LABS: Albumin 1.7 g/dL (3.4-5.0); Anion Gap 10 (5-15); BUN/Creatinine Ratio 11.2; Blood Urea Nitrogen 18 mg/dL (7-18); Carbon Dioxide 19 mmol/L (21-32); Chloride 101 mmol/L (98-107); GFR African American 55 mL/min; GFR Non-African American 45 mL/min; Glucose 102 mg/dL (74-106); Sodium 130 mmol/L (136-145)
[2021-07-08 19:02] LABS: Alanine Aminotransferase 20 U/L (16-61); Alkaline Phosphatase 146 U/L (45-117); Aspartate Aminotransferase 25 U/L (15-37); Bilirubin, Total 0.7 mg/dL (0.2-1.0); Total Protein 6.4 g/dL (6.4-8.2)
[2021-07-08 19:24] LABS: Calcium 5.7 mg/dL (8.5-10.1)
[2021-07-08] MEDS: NOREPINEPHRINE 8 MG/250ML KIT 250 ML IV SCH (20:45)
[2021-07-08] MEDS ORDERED: ONDANSETRON HCL 4 MG/2 ML VIAL IV PRN (21:45)
[2021-07-08] MEDS ORDERED: NITROGLYCERIN 0.4 MG SL TAB SL PRN (21:45)
[2021-07-08] MEDS ORDERED: TEMAZEPAM 15 MG CAP PO PRN (21:45)
[2021-07-08] MEDS ORDERED: dilTIAZem 125mg/125ml BAG KIT 125 ML IV ONE (21:45)
[2021-07-08] MEDS ORDERED: CALCIUM GLUC 1,000mg/50ml-NS 50 ML IV ONE ×2 (21:45→22:00)
[2021-07-08] MEDS ORDERED: ACETAMINOPHEN 325 MG TAB PO PRN (21:45)
[2021-07-08] MEDS ORDERED: ALBUMIN 5% 250 ML IV ONE (21:45)
[2021-07-08] MEDS ORDERED: MORPHINE SULFATE INJECTION 2 MG/ML SYRG IV PRN (21:45)
[2021-07-08 23:38] LABS: Magnesium 0.8 mg/dL (1.6-2.6)
[2021-07-09] MEDS: MAGNESIUM SULFATE 1GM/100ML 100 ML IV SCH ×3 (00:09→02:35)
[2021-07-09 08:01] LABS: Basophils # (auto) 0.1 10 ^3/uL (0-0.2); Basophils % (auto) 0.6 % (0.0-2.0); Eosinophils # (auto) 0 10 ^3/uL (0-0.8); Eosinophils % (auto) 0.1 % (0.0-7.0); Hematocrit 41.3 % (41.0-53.0); Hemoglobin 13.9 g/dL (13.5-17.5); Lymphocytes # (auto) 0.9 10 ^3/uL (0.4-5.4); Lymphocytes % (auto) 9.3 % (10.0-50.0); Mean Corpuscular Hemoglobin 30.3 pg (28.0-32.0); Mean Corpuscular Hgb Conc. 33.6 g/dL (32.0-36.0); Mean Corpuscular Volume 90.2 fL (80.0-100.0); Monocytes # (auto) 0.1 10 ^3/uL (0-1.3); Monocytes % (auto) 1.4 % (0.0-12.0); Neutrophils # (auto) 8.3 10 ^3/uL (1.6-8.6); Neutrophils % (auto) 88.6 % (37.0-80.0); Nucleated Red Blood Cells % 0.1 %; Red Blood Cells 4.58 10^6/uL (4.5-5.90); Red Cell Distribution Width 13.9 % (11.8-14.3); White Blood Cell 9.4 10^3/uL (4.4-10.8)
[2021-07-09 08:19] LABS: Albumin 2.1 g/dL (3.4-5.0); Calcium 6.4 mg/dL (8.5-10.1); Potassium 4.8 mmol/L (3.5-5.1)
[2021-07-09 08:24] LABS: BUN/Creatinine Ratio 12.9; Bilirubin, Total 0.6 mg/dL (0.2-1.0); Total Protein 6.7 g/dL (6.4-8.2)
[2021-07-09] MEDS: PANTOPRAZOLE 40 MG TAB PO SCH (09:11)
[2021-07-09] MEDS ORDERED: ENOXAPARIN SOD 40 MG/0.4 ML SYRINGE SC SCH (10:00)
[2021-07-09] MEDS ORDERED: METOPROLOL SUCCINATE XL 50 MG TAB PO ONE (13:45)
[2021-07-09] MEDS ORDERED: LOPERAMIDE HCL 2 MG CAP PO ONE (15:15)
[2021-07-09 16:13] LABS: Urine Bacteria FEW /hpf (None Seen); Urine Blood Negative /uL (Negative); Urine Hyaline Cast FEW /lpf (0 - 2); Urine Specific Gravity 1.014 (1.001-1.035); Urine WBC 1 /hpf (0 - 3)
[2021-07-09] MEDS ORDERED: cefTRIAXone 1GM/50ML D5W 50 ML IV ONE (16:45)
[2021-07-09] MEDS: Ensure HIGH Protein Chocolate 8oz Bottle PO SCH ×2 (18:48→21:28)
[2021-07-09 20:40] VITALS: BP 133/94
[2021-07-09] MEDS: NOREPINEPHRINE 8 MG/250ML KIT 250 ML IV SCH (20:45)
[2021-07-09 22:00] VITALS: BP 133/94
[2021-07-10 05:30] VITALS: BP 109/76
[2021-07-10] MEDS: Ensure HIGH Protein Chocolate 8oz Bottle PO SCH ×4 (06:00→22:01)
[2021-07-10 06:43] LABS: Basophils # (auto) 0 10 ^3/uL (0-0.2); Basophils % (auto) 0.2 % (0.0-2.0); Eosinophils # (auto) 0 10 ^3/uL (0-0.8); Hematocrit 41.7 % (41.0-53.0); Hemoglobin 13.8 g/dL (13.5-17.5); Lymphocytes # (auto) 0.8 10 ^3/uL (0.4-5.4); Mean Corpuscular Hemoglobin 30.3 pg (28.0-32.0); Mean Corpuscular Hgb Conc. 33.1 g/dL (32.0-36.0); Mean Corpuscular Volume 91.6 fL (80.0-100.0); Monocytes # (auto) 0.7 10 ^3/uL (0-1.3); Monocytes % (auto) 4.4 % (0.0-12.0); Neutrophils # (auto) 14.1 10 ^3/uL (1.6-8.6); Neutrophils % (auto) 90.4 % (37.0-80.0); Red Blood Cells 4.55 10^6/uL (4.5-5.90); Red Cell Distribution Width 13.5 % (11.8-14.3); White Blood Cell 15.6 10^3/uL (4.4-10.8)
[2021-07-10 06:58] LABS: Albumin 1.9 g/dL (3.4-5.0); BUN/Creatinine Ratio 13.8; Calcium 6.8 mg/dL (8.5-10.1); Magnesium 1.9 mg/dL (1.6-2.6); Potassium 5.4 mmol/L (3.5-5.1)
[2021-07-10 07:02] LABS: Bilirubin, Total 0.8 mg/dL (0.2-1.0)
[2021-07-10 09:00] VITALS: BP 106/59
[2021-07-10] MEDS: METOPROLOL SUCCINATE XL 50 MG TAB PO SCH (10:00)
[2021-07-10] MEDS: cefTRIAXone 1GM/50ML D5W 50 ML IV SCH (10:29)
[2021-07-10] MEDS: PANTOPRAZOLE 40 MG TAB PO SCH (10:29)
[2021-07-10 13:00] VITALS: BP 111/67
[2021-07-10] MEDS ORDERED: FUROSEMIDE 40 MG TAB PO ONE (13:00)
[2021-07-10] MEDS ORDERED: SODIUM ZIRCONIUM CYCL 10 GM PAK PO ONE (13:00)
[2021-07-10 17:00] VITALS: BP 111/70
[2021-07-10] MEDS ORDERED: RIVAROXABAN 20 MG TAB PO SCH (18:00)
[2021-07-10] MEDS: NOREPINEPHRINE 8 MG/250ML KIT 250 ML IV SCH (20:45)
[2021-07-10 21:54] VITALS: BP 108/75
[2021-07-11 05:30] VITALS: BP 99/64
[2021-07-11 06:54] LABS: Basophils # (auto) 0.1 10 ^3/uL (0-0.2); Basophils % (auto) 0.5 % (0.0-2.0); Eosinophils # (auto) 0.1 10 ^3/uL (0-0.8); Eosinophils % (auto) 0.7 % (0.0-7.0); Hematocrit 42.7 % (41.0-53.0); Hemoglobin 14.5 g/dL (13.5-17.5); Lymphocytes # (auto) 1.3 10 ^3/uL (0.4-5.4); Lymphocytes % (auto) 13.1 % (10.0-50.0); Mean Corpuscular Hemoglobin 30.9 pg (28.0-32.0); Mean Corpuscular Hgb Conc. 33.9 g/dL (32.0-36.0); Mean Corpuscular Volume 91.1 fL (80.0-100.0); Monocytes # (auto) 0.8 10 ^3/uL (0-1.3); Monocytes % (auto) 8.4 % (0.0-12.0); Neutrophils # (auto) 7.5 10 ^3/uL (1.6-8.6); Neutrophils % (auto) 77.3 % (37.0-80.0); Nucleated Red Blood Cells % 0.1 %; Red Blood Cells 4.68 10^6/uL (4.5-5.90); Red Cell Distribution Width 13.6 % (11.8-14.3); White Blood Cell 9.7 10^3/uL (4.4-10.8)
[2021-07-11 07:09] LABS: BUN/Creatinine Ratio 19.4; Calcium 6.6 mg/dL (8.5-10.1); Potassium 4.4 mmol/L (3.5-5.1)
[2021-07-11 07:14] LABS: Bilirubin, Total 1.1 mg/dL (0.2-1.0)
[2021-07-11 09:00] VITALS: BP 114/76
[2021-07-11] MEDS: cefTRIAXone 1GM/50ML D5W 50 ML IV SCH (09:01)
[2021-07-11] MEDS: Ensure HIGH Protein Chocolate 8oz Bottle PO SCH ×2 (09:01→12:48)
[2021-07-11] MEDS: PANTOPRAZOLE 40 MG TAB PO SCH (09:02)
[2021-07-11] MEDS: METOPROLOL SUCCINATE XL 50 MG TAB PO SCH (09:02)
[2021-07-11] MEDS: FUROSEMIDE 40 MG TAB PO SCH (10:00)
[2021-07-11] MEDS: CHOLESTYRAMINE 4 GM POWDER PO SCH ×2 (12:48→21:17)
[2021-07-11 13:00] VITALS: BP 94/64
[2021-07-11 17:00] VITALS: BP 95/66
[2021-07-11] MEDS: DABIGATRAN 75 MG CAP PO SCH (21:17)
[2021-07-11 22:00] VITALS: BP 94/58
[2021-07-12 06:53] LABS: Basophils # (auto) 0.1 10 ^3/uL (0-0.2); Basophils % (auto) 0.7 % (0.0-2.0); Eosinophils # (auto) 0.2 10 ^3/uL (0-0.8); Eosinophils % (auto) 2.1 % (0.0-7.0); Hematocrit 39.4 % (41.0-53.0); Hemoglobin 13.2 g/dL (13.5-17.5); Lymphocytes # (auto) 1.4 10 ^3/uL (0.4-5.4); Lymphocytes % (auto) 15.1 % (10.0-50.0); Mean Corpuscular Hemoglobin 31.1 pg (28.0-32.0); Mean Corpuscular Hgb Conc. 33.5 g/dL (32.0-36.0); Mean Corpuscular Volume 92.7 fL (80.0-100.0); Monocytes % (auto) 10.6 % (0.0-12.0); Neutrophils # (auto) 6.6 10 ^3/uL (1.6-8.6); Neutrophils % (auto) 71.5 % (37.0-80.0); Nucleated Red Blood Cells % 0.2 %; Red Blood Cells 4.25 10^6/uL (4.5-5.90); White Blood Cell 9.2 10^3/uL (4.4-10.8)
[2021-07-12 07:06] LABS: Anion Gap 7 (5-15); Blood Urea Nitrogen 30 mg/dL (7-18); Calcium 6.5 mg/dL (8.5-10.1); Carbon Dioxide 21 mmol/L (21-32); Chloride 107 mmol/L (98-107); Glucose 76 mg/dL (74-106); Potassium 5.1 mmol/L (3.5-5.1); Sodium 135 mmol/L (136-145)
[2021-07-12 07:09] LABS: BUN/Creatinine Ratio 22.6; GFR African American 68 mL/min; GFR Non-African American 56 mL/min
[2021-07-12 09:00] VITALS: BP 95/58
[2021-07-12] MEDS: PANTOPRAZOLE 40 MG TAB PO SCH (09:15)
[2021-07-12] MEDS: DABIGATRAN 75 MG CAP PO SCH (09:15)
[2021-07-12] MEDS: CHOLESTYRAMINE 4 GM POWDER PO SCH (09:16)
[2021-07-12] MEDS: METOPROLOL SUCCINATE XL 50 MG TAB PO SCH (10:00)
[2021-07-12] MEDS: FUROSEMIDE 40 MG TAB PO SCH (10:00)
[2021-07-12 11:12] VITALS: BP 95/58
== END 2021-07-12 13:45 | disposition home or self-care (01) | DRG 291 ==
LOC: EDBD 17:59 → ER 17:59 → OVERFLOW 21:52 → TELE-WESTW 07-09 20:08
PROVIDERS: ADMIT Nurse Practitioner; ATTEND Internal Medicine
DX: I13.0 Hypertensive heart and chronic kidney disease with heart failure and stage 1 through stage 4 chronic kidney disease, or unspecified chronic kidney disease (principal); N17.0 Acute kidney failure with tubular necrosis; I50.43 Acute on chronic combined systolic (congestive) and diastolic (congestive) heart failure; D68.69 Other thrombophilia; E87.1 Hypo-osmolality and hyponatremia; I48.92 Unspecified atrial flutter; E44.0 Moderate protein-calorie malnutrition; I48.91 Unspecified atrial fibrillation; Z20.822 Contact with and (suspected) exposure to COVID-19; K21.9 Gastro-esophageal reflux disease without esophagitis; E83.51 Hypocalcemia; N18.31 Chronic kidney disease, stage 3a; F41.9 Anxiety disorder, unspecified; I95.9 Hypotension, unspecified; G47.00 Insomnia, unspecified; E83.42 Hypomagnesemia; K59.1 Functional diarrhea; Z68.29 Body mass index [BMI] 29.0-29.9, adult; Z85.850 Personal history of malignant neoplasm of thyroid; Z90.49 Acquired absence of other specified parts of digestive tract; Z90.89 Acquired absence of other organs; Z87.891 Personal history of nicotine dependence; Z80.0 Family history of malignant neoplasm of digestive organs; Z82.49 Family history of ischemic heart disease and other diseases of the circulatory system; Z79.899 Other long term (current) drug therapy
CPT/HCPCS: 36415; 71045; 78582; 80048; 80053; 81001; 83036; 83605; 83735; 83880; 84443; 84484; 85025; 85379; 87045; 87086; 87426; 87427; 87493; 93005; 93306; 93970; 96365; 96366; 96367; 96375; 97163; 99291; G0378; J0696

== ENCOUNTER 2021-08-16 05:16 | Emergency (ER) | payer MEDICARE, OTHER ==
[~2021-08-16] VITALS: Ht 182.9 cm; Wt 117.9 kg
[~2021-08-16 05:16] MED LIST changes: -DOCU-94 PO; -LISI-716 PO; -NIFE1TAB31 PO; -OME20T PO
[2021-08-16 07:09] LABS: Basophils # (auto) 0.1 10 ^3/uL (0-0.2); Eosinophils # (auto) 0.2 10 ^3/uL (0-0.8); Eosinophils % (auto) 2.1 % (0.0-7.0); Hemoglobin 13.3 g/dL (13.5-17.5); Lymphocytes # (auto) 1.9 10 ^3/uL (0.4-5.4); Lymphocytes % (auto) 18.8 % (10.0-50.0); Mean Corpuscular Hgb Conc. 33.2 g/dL (32.0-36.0); Mean Corpuscular Volume 93.3 fL (80.0-100.0); Monocytes # (auto) 0.8 10 ^3/uL (0-1.3); Monocytes % (auto) 7.7 % (0.0-12.0); Neutrophils % (auto) 70.4 % (37.0-80.0); Nucleated Red Blood Cells % 0.2 %; Red Blood Cells 4.29 10^6/uL (4.5-5.90); Red Cell Distribution Width 14.6 % (11.8-14.3)
[2021-08-16 07:26] LABS: Alanine Aminotransferase 15 U/L (16-61); Anion Gap 7 (5-15); Blood Urea Nitrogen 10 mg/dL (7-18); Carbon Dioxide 20 mmol/L (21-32); Chloride 111 mmol/L (98-107); Glucose 89 mg/dL (74-106); Potassium 4.1 mmol/L (3.5-5.1); Sodium 138 mmol/L (136-145)
[2021-08-16 07:32] LABS: Alkaline Phosphatase 174 U/L (45-117); Aspartate Aminotransferase 21 U/L (15-37); BUN/Creatinine Ratio 6.4; Bilirubin, Total 0.7 mg/dL (0.2-1.0); GFR African American 56 mL/min; GFR Non-African American 47 mL/min; Total Protein 5.9 g/dL (6.4-8.2)
[2021-08-16 09:30] LABS: Calcium 5.8 mg/dL (8.5-10.1); Magnesium 0.7 mg/dL (1.6-2.6)
[2021-08-16] MEDS ORDERED: CALCIUM GLUC 1,000mg/50ml-NS 50 ML IV ONE (09:45)
[2021-08-16] MEDS: MAGNESIUM SULFATE 1GM/100ML 100 ML IV SCH ×2 (10:44→11:41)
[2021-08-16 14:40] LABS: Calcium 6.2 mg/dL (8.5-10.1)
[2021-08-16 16:38] VITALS: BP 108/68
[2021-08-16] MEDS ORDERED: MAGNESIUM OXIDE 400 MG TAB PO ONE (17:15)
[2021-08-16] MEDS ORDERED: CALCIUM ACETATE 667 MG CAP PO ONE (17:15)
== END 2021-08-16 17:15 | disposition home or self-care (01) ==
LOC: EDBD 05:16 → ER 05:16
DX: I13.2 Hypertensive heart and chronic kidney disease with heart failure and with stage 5 chronic kidney disease, or end stage renal disease (principal); E11.22 Type 2 diabetes mellitus with diabetic chronic kidney disease; N18.6 End stage renal disease; I50.42 Chronic combined systolic (congestive) and diastolic (congestive) heart failure; E83.42 Hypomagnesemia; E83.51 Hypocalcemia; Z90.49 Acquired absence of other specified parts of digestive tract; Z90.89 Acquired absence of other organs; Z87.891 Personal history of nicotine dependence
CPT/HCPCS: 36415; 70450; 71045; 80053; 82310; 83735; 83880; 84484; 85025; 93005; 96365; 96366; 96368; 99285; J0610; J3475

== ENCOUNTER 2022-03-22 07:27 | Inpatient (IN) | payer MEDICARE, OTHER ==
[~2022-03-22] VITALS: Ht 185.4 cm; Wt 111.0 kg
[2022-03-22] MEDS: fentaNYL Drip 2500mCg/250mlNS 250 ML IV SCH (07:28)
[2022-03-22 08:44] LABS: Hematocrit 36.2 % (41.0-53.0); Mean Corpuscular Hgb Conc. 33.2 g/dL (32.0-36.0); Mean Corpuscular Volume 93.4 fL (80.0-100.0); Red Blood Cells 3.87 10^6/uL (4.5-5.90); Red Cell Distribution Width 14.7 % (11.8-14.3); White Blood Cell 15.1 10^3/uL (4.4-10.8)
[2022-03-22 08:59] LABS: Basophils % (manual) 0 (0.0-2.0); Blast Cells 0; Eosinophils % (manual) 0 (0-7); Metamyelocytes % 0; Myelocytes % 0; Promyelocytes % 0; Reactive Lymphocytes 0
[2022-03-22] MEDS ORDERED: SODIUM CHLORIDE 0.9% 500 ML IVB ONE (09:00)
[2022-03-22] MEDS ORDERED: SODIUM CHLORIDE 0.9% 1,000 ML IV ONE (09:00)
[2022-03-22 09:06] LABS: Albumin 1.8 g/dL (3.4-5.0); Calcium 7.8 mg/dL (8.5-10.1)
[2022-03-22 09:10] LABS: BUN/Creatinine Ratio 31.7; Bilirubin, Total 0.8 mg/dL (0.2-1.0); Total Protein 5.3 g/dL (6.4-8.2)
[2022-03-22 09:24] LABS: Band Neutrophils % (manual) 1; Lymphocytes % (manual) 7 (10.0-50.0); Monocytes % (manual) 8 (0-12)
[2022-03-22 09:28] LABS: Potassium 6.3 mmol/L (3.5-5.1)
[2022-03-22 11:05] LABS: Urine Bacteria NONE SEEN /hpf (None Seen); Urine Blood Negative /uL (Negative); Urine Hyaline Cast FEW /lpf (0 - 2); Urine Mucus FEW (None Seen); Urine Specific Gravity 1.022 (1.001-1.035); Urine WBC 1 /hpf (0 - 3)
[2022-03-22 11:08] LABS: Magnesium 2.3 mg/dL (1.6-2.6)
[2022-03-22] MEDS ORDERED: FUROSEMIDE 40 MG/4 ML VIAL IV ONE ×2 (11:30→17:15)
[2022-03-22] MEDS ORDERED: CALCIUM CHL 100MG/ML 1,000 MG in D5W 5% 100 ML IV ONE ×2 (11:30→17:15)
[2022-03-22] MEDS ORDERED: SODIUM BICARBONATE 8.4 % INJ 50ML VIAL IV ONE (11:30)
[2022-03-22] MEDS ORDERED: SODIUM CHLORIDE 0.9% 500 ML IV ONE (12:51)
[2022-03-22] MEDS ORDERED: NOREPINEPHRINE 8 MG/250ML KIT 250 ML IV ONE (12:51)
[2022-03-22] MEDS: NOREPINEPHRINE 8 MG/250ML KIT 250 ML IV SCH ×2 (12:55→22:29)
[2022-03-22 13:47] LABS: Red Blood Cells 1.35 10^6/uL (4.5-5.90)
[2022-03-22 13:49] LABS: Hematocrit 13.1 % (41.0-53.0); Red Cell Distribution Width 14.9 % (11.8-14.3); White Blood Cell 8.1 10^3/uL (4.4-10.8)
[2022-03-22 13:59] LABS: Basophils % (manual) 0 (0.0-2.0); Blast Cells 0; Eosinophils % (manual) 0 (0-7); Hemoglobin 4.3 g/dL (13.5-17.5); Metamyelocytes % 0; Myelocytes % 0; Promyelocytes % 0; Reactive Lymphocytes 0
[2022-03-22 14:08] LABS: Band Neutrophils % (manual) 1; Lymphocytes % (manual) 2 (10.0-50.0); Monocytes % (manual) 2 (0-12)
[2022-03-22 14:54] LABS: Basophils # (auto) 0 10 ^3/uL (0-0.2); Basophils % (auto) 0.2 % (0.0-2.0); Eosinophils # (auto) 0 10 ^3/uL (0-0.8); Eosinophils % (auto) 0.1 % (0.0-7.0); Hematocrit 34.6 % (41.0-53.0); Hemoglobin 11.9 g/dL (13.5-17.5); Lymphocytes # (auto) 1.3 10 ^3/uL (0.4-5.4); Mean Corpuscular Hemoglobin 32.3 pg (28.0-32.0); Mean Corpuscular Hgb Conc. 34.4 g/dL (32.0-36.0); Mean Corpuscular Volume 93.9 fL (80.0-100.0); Monocytes # (auto) 0.7 10 ^3/uL (0-1.3); Monocytes % (auto) 3.2 % (0.0-12.0); Neutrophils % (auto) 90.5 % (37.0-80.0); Red Blood Cells 3.69 10^6/uL (4.5-5.90); Red Cell Distribution Width 14.8 % (11.8-14.3)
[2022-03-22] MEDS ORDERED: MORPHINE SULFATE INJ 2 MG/ml SYRG IV PRN (16:45)
[2022-03-22] MEDS ORDERED: NITROGLYCERIN 0.4 MG SL TAB SL PRN (16:45)
[2022-03-22 17:06] LABS: Albumin 1.8 g/dL (3.4-5.0); Calcium 8.3 mg/dL (8.5-10.1)
[2022-03-22 17:09] LABS: BUN/Creatinine Ratio 35.6; Bilirubin, Total 0.9 mg/dL (0.2-1.0); Total Protein 5.4 g/dL (6.4-8.2)
[2022-03-22 17:13] LABS: Potassium 6.3 mmol/L (3.5-5.1)
[2022-03-22] MEDS ORDERED: ALBUTEROL SULF 2.5 MG/0.5ML(0.5%) NEB SOLN NEB ONE (17:15)
[2022-03-22] MEDS ORDERED: METOPROLOL TARTRATE 1MG/1ML-5ML VIAL IV PRN (17:15)
[2022-03-22] MEDS ORDERED: PANTOPRAZOLE 80 MG in SODIUM CHL 0.9% 100 ML IV ONE (17:15)
[2022-03-22] MEDS ORDERED: DEXTROSE (50%) 50ML SYRG IV ONE (17:15)
[2022-03-22] MEDS ORDERED: METOPROLOL SUCCINATE XL 50 MG TAB PO ONE (17:15)
[2022-03-22] MEDS ORDERED: InsuLIN REG 1unit/0.01ml Soln (100units/ml) IV ONE (17:15)
[2022-03-22] MEDS ORDERED: SODIUM ZIRCONIUM CYCL 10 GM PAK PO ONE (17:15)
[2022-03-22] MEDS ORDERED: PANTOPRAZOLE 40 MG/10 ML VIAL INJ IV ONE ×2 (17:15→17:30)
[2022-03-22] MEDS ORDERED: SODIUM BICARBONATE 8.4% INJ 50ML SYRINGE IV ONE (17:15)
[2022-03-22] MEDS ORDERED: SODIUM ZIRCONIUM CYCL 10 GM PAK GT ONE (17:30)
[2022-03-22] MEDS ORDERED: VANCOMYCIN PER PHARMACY 0 MG IV SCH (17:30)
[2022-03-22] MEDS ORDERED: MAGNESIUM SULFATE 1GM/100ML 100 ML IV SCH (17:30)
[2022-03-22] MEDS: SODIUM ZIRCONIUM CYCL 10 GM PAK PO ONE ×2 (17:42→18:03)
[2022-03-22] MEDS: CALCIUM CARB 500 MG CHEW TAB PO SCH (18:00)
[2022-03-22 18:03] LABS: INR > 8.0 (0.9-1.15); Partial Thromboplastin Time 135.5 sec (23.6-33.0)
[2022-03-22 18:20] LABS: Magnesium 2.3 mg/dL (1.6-2.6); Phosphorus 3.5 mg/dL (2.5-4.90)
[2022-03-22] MEDS ORDERED: PHENYLEPHRINE IV 250 ML IV ONE (18:49)
[2022-03-22] MEDS: PHENYLEPHRINE IV 250 ML IV SCH ×2 (18:50→22:29)
[2022-03-22] MEDS ORDERED: MIDAZOLAM DRIP 50 mg/50mL 50 ML IV ONE (18:57)
[2022-03-22] MEDS ORDERED: ETOMIDATE (2MG/ML) 20ML VIAL IV ONE ×2 (18:57→19:15)
[2022-03-22] MEDS ORDERED: MIDAZOLAM HCL 5 MG/ML-1ML VIAL ONE (18:57)
[2022-03-22] MEDS ORDERED: SUCCINYLCHOLINE CHLORIDE 20 MG/ML 10ML VIAL IV ONE ×2 (18:58→19:15)
[2022-03-22] MEDS ORDERED: MIDAZOLAM DRIP 50 mg/50mL 50 ML IV SCH ×2 (19:10)
[2022-03-22] MEDS: MIDAZOLAM DRIP 50 mg/50mL 50 ML IV SCH ×2 (19:10→22:27)
[2022-03-22] MEDS ORDERED: MIDAZOLAM HCL 5 MG/ML-1ML VIAL IV ONE (19:15)
[2022-03-22 19:30] VITALS: BP 74/47
[2022-03-22] MEDS ORDERED: fentaNYL Drip 2500mCg/250mlNS 250 ML IV ONE (19:31)
[2022-03-22] MEDS ORDERED: fentaNYL Drip 2500mCg/250mlNS 250 ML IV SCH (19:45)
[2022-03-22 19:47] LABS: Hematocrit 30.8 % (41.0-53.0); Hemoglobin 9.9 g/dL (13.5-17.5)
[2022-03-22] MEDS ORDERED: VANCOMYCIN 1GM/250ML 250 ML IV SCH (20:00)
[2022-03-22 20:30] VITALS: BP 83/49
[2022-03-22] MEDS: PIPERACILLIN-TAZOB 3.375GM 100 ML IV SCH (20:37)
[2022-03-22] MEDS ORDERED: ALBUMIN 5% 250 ML IV ONE (20:45)
[2022-03-22] MEDS ORDERED: AMIODARONE HCL 150 MG in D5W 5% 100 ML IV ONE (20:45)
[2022-03-22] MEDS ORDERED: AMIODARONE 450mg/250ml AE 250 ML IV SCH (21:00)
[2022-03-22 21:19] LABS: INR > 8.0 (0.9-1.15)
[2022-03-22 21:20] LABS: Partial Thromboplastin Time > 139.0 sec (23.6-33.0)
[2022-03-22 22:00] VITALS: BP 81/53
[2022-03-22] MEDS ORDERED: CHOLESTYRAMINE 4 GM POWDER PO SCH (23:00)
[2022-03-22] MEDS: PROPOFOL 100 ML IV SCH (23:17)
[2022-03-22] MEDS: SODIUM ZIRCONIUM CYCL 10 GM PAK PO SCH (23:17)
[2022-03-22] MEDS: SUCRALFATE 1 GM/10 ML ORAL SUSP PO SCH (23:17)
[2022-03-22] MEDS ORDERED: VASOPRESSIN 20 UNIT/ML ONE ×3 (23:44→23:47)
[2022-03-23] VITALS (61 sets, daily range): BP systolic 63–214; BP diastolic 31–80
[2022-03-23] MEDS: VASOPRESSIN 50 UNITS in D5W 5% 247.5 ML IV SCH ×2 (00:08→21:18)
[2022-03-23] MEDS: MIDAZOLAM DRIP 50 mg/50mL 50 ML IV SCH ×7 (01:33→21:50)
[2022-03-23] MEDS ORDERED: AMIODARONE HCL 75 MG in D5W 5% 100 ML IV ONE (01:45)
[2022-03-23] MEDS ORDERED: AMIODARONE HCL (50 MG/ ML) 3 ML VIAL IV ONE (01:46)
[2022-03-23] MEDS: PHENYLEPHRINE IV 250 ML IV SCH ×3 (02:20→10:22)
[2022-03-23] MEDS: NOREPINEPHRINE 8 MG/250ML KIT 250 ML IV SCH (02:21)
[2022-03-23] MEDS: PIPERACILLIN-TAZOB 3.375GM 100 ML IV SCH (02:38)
[2022-03-23] MEDS: AMIODARONE 450mg/250ml AE 250 ML IV SCH ×2 (03:00→21:15)
[2022-03-23 04:07] LABS: Urine Bacteria NONE SEEN /hpf (None Seen); Urine Blood 3+ /uL (Negative); Urine Hyaline Cast FEW /lpf (0 - 2); Urine Mucus FEW (None Seen); Urine Specific Gravity 1.037 (1.001-1.035); Urine WBC 10 /hpf (0 - 3)
[2022-03-23 04:27] LABS: Alcohol, Urine < 3.0 mg/dL (0-10); Amphetamine Screen, Urine NEGATIVE (NEGATIVE); Barbiturate Scree,Urine NEGATIVE (NEGATIVE); Benzodiazephine Screen, Urine POSITIVE (NEGATIVE); Cannabinoid Screen, Urine NEGATIVE (NEGATIVE); Cocaine Screen, Urine NEGATIVE (NEGATIVE); Opiate Scree,Urine NEGATIVE (NEGATIVE); Phencyclidine Screen, Urine NEGATIVE (NEGATIVE)
[2022-03-23 04:29] LABS: Protein, Urine 75.7 mg/dL (0.0-11.9)
[2022-03-23] MEDS: SODIUM ZIRCONIUM CYCL 10 GM PAK PO SCH ×2 (06:13→09:58)
[2022-03-23 07:23] LABS: Hematocrit 28.7 % (41.0-53.0); Red Blood Cells 2.94 10^6/uL (4.5-5.90)
[2022-03-23 07:26] LABS: Hemoglobin 9.5 g/dL (13.5-17.5); Mean Corpuscular Hemoglobin 32.3 pg (28.0-32.0); Mean Corpuscular Hgb Conc. 33.1 g/dL (32.0-36.0); Mean Corpuscular Volume 97.7 fL (80.0-100.0); Red Cell Distribution Width 15.4 % (11.8-14.3)
[2022-03-23 07:27] LABS: Albumin 1.7 g/dL (3.4-5.0); Anion Gap 10 (5-15); Blood Urea Nitrogen 78 mg/dL (7-18); Carbon Dioxide 17 mmol/L (21-32); Chloride 114 mmol/L (98-107); Glucose 172 mg/dL (74-106); Lipase 46 U/L (73-393); Potassium 5.2 mmol/L (3.5-5.1); Sodium 141 mmol/L (136-145); Uric Acid 8.4 mg/dL (3.5-7.2)
[2022-03-23 07:36] LABS: Alanine Aminotransferase 58 U/L (16-61); Alkaline Phosphatase 143 U/L (45-117); Aspartate Aminotransferase 85 U/L (15-37); BUN/Creatinine Ratio 34.5; Bilirubin, Total 0.6 mg/dL (0.2-1.0); CRP High Sensitivity 5.38 mg/dL (< 0.3); Cholesterol < 50 mg/dL (< 200); Creatine Kinase IFCC 46 U/L (39-308); GFR African American 37 mL/min; GFR Non-African American 31 mL/min; HDL Cholesterol 23 mg/dL (40-59); LDL Cholesterol 18 mg/dL (< 100); Phosphorus 3.6 mg/dL (2.5-4.90); Total Protein 4.6 g/dL (6.4-8.2); Triglycerides 122 mg/dL (< 150)
[2022-03-23 07:46] LABS: Partial Thromboplastin Time 60.5 sec (23.6-33.0)
[2022-03-23 07:55] LABS: Basophils % (manual) 0 (0.0-2.0); Blast Cells 0; Eosinophils % (manual) 0 (0-7); Metamyelocytes % 0; Myelocytes % 0; Promyelocytes % 0; Reactive Lymphocytes 0
[2022-03-23 07:57] LABS: INR > 8.0 (0.9-1.15)
[2022-03-23] MEDS: EPINEPHrine HCL 250 ML IV SCH (09:15)
[2022-03-23] MEDS ORDERED: PHYTONADIONE (VIT K)10 MG/ML 1ML VIAL SUBCUT ONE (09:15)
[2022-03-23] MEDS ORDERED: DIGOXIN (250MCG/ML) 2 ML AMPULE IV ONE (09:15)
[2022-03-23] MEDS ORDERED: phytonadione 5 MG in SODIUM CHL 0.9% 50 ML IV ONE (09:45)
[2022-03-23] MEDS: CALCIUM CARB 500 MG CHEW TAB PO SCH ×2 (09:58→12:11)
[2022-03-23] MEDS: PANTOPRAZOLE 40 MG/10 ML VIAL INJ IV SCH ×2 (09:58→21:38)
[2022-03-23] MEDS ORDERED: METOPROLOL SUCCINATE XL 50 MG TAB PO SCH (10:00)
[2022-03-23] MEDS: SUCRALFATE 1 GM/10 ML ORAL SUSP PO SCH ×4 (10:03→21:47)
[2022-03-23] MEDS: LINEZOLID 600MG/300ML 300 ML IV SCH ×2 (10:03→21:37)
[2022-03-23] MEDS: SODIUM CHLORIDE 0.9% 1,000 ML IV SCH ×3 (10:04→17:00)
[2022-03-23 10:11] LABS: Band Neutrophils % (manual) 24; Lymphocytes % (manual) 15 (10.0-50.0); Monocytes % (manual) 7 (0-12)
[2022-03-23] MEDS: CEFEPIME 1GM/ 50ML 50 ML IV SCH (12:12)
[2022-03-23] MEDS ORDERED: SODIUM BICARBONATE 50ML VIAL 50 ML in SOD CHL 0.45% 1,000 ML IV SCH (12:45)
[2022-03-23] MEDS ORDERED: GASTROGRAFIN 120 ML SOL ONE (15:58)
[2022-03-23] MEDS: DIGOXIN (250MCG/ML) 2 ML AMPULE IV SCH ×2 (17:04→21:42)
[2022-03-23] MEDS ORDERED: SODIUM BICARBONATE 8.4 % INJ 50ML VIAL IV ONE (18:45)
[2022-03-23] MEDS: PROPOFOL 100 ML IV SCH (19:15)
[2022-03-23] MEDS: NOREPINEPHRINE BITARTRATE 32 MG in SODIUM CHL 0.9% 218 ML IV SCH (21:16)
[2022-03-23] MEDS: PHENYLEPHRINE INJ 80 MG in SODIUM CHL 0.9% 242 ML IV SCH (21:34)
[2022-03-23] MEDS: fentaNYL Drip 2500mCg/250mlNS 250 ML IV SCH (23:17)
[2022-03-24] VITALS (89 sets, daily range): BP systolic 58–155; BP diastolic 30–118
[2022-03-24] MEDS: CEFEPIME 1GM/ 50ML 50 ML IV SCH (00:10)
[2022-03-24] MEDS: MIDAZOLAM DRIP 50 mg/50mL 50 ML IV SCH ×6 (01:10→21:10)
[2022-03-24] MEDS: SODIUM CHLORIDE 0.9% 1,000 ML IV SCH (01:44)
[2022-03-24] MEDS: DIGOXIN (250MCG/ML) 2 ML AMPULE IV SCH (03:46)
[2022-03-24 04:20] LABS: Hematocrit 22.5 % (41.0-53.0); Hemoglobin 7.4 g/dL (13.5-17.5); Mean Corpuscular Hemoglobin 31.6 pg (28.0-32.0)
[2022-03-24 04:27] LABS: Mean Corpuscular Hgb Conc. 32.7 g/dL (32.0-36.0); Mean Corpuscular Volume 96.5 fL (80.0-100.0); Red Blood Cells 2.33 10^6/uL (4.5-5.90); Red Cell Distribution Width 15.4 % (11.8-14.3)
[2022-03-24 04:41] LABS: Albumin 1.5 g/dL (3.4-5.0); Calcium 7.4 mg/dL (8.5-10.1)
[2022-03-24 04:42] LABS: INR 1.88 (0.9-1.15)
[2022-03-24 04:44] LABS: Bilirubin, Total 0.7 mg/dL (0.2-1.0); Total Protein 4.2 g/dL (6.4-8.2)
[2022-03-24 05:06] LABS: Potassium 5.8 mmol/L (3.5-5.1)
[2022-03-24 05:07] LABS: White Blood Cell 30.8 10^3/uL (4.4-10.8)
[2022-03-24 05:08] LABS: Basophils % (manual) 0 (0.0-2.0); Blast Cells 0; Eosinophils % (manual) 0 (0-7); Metamyelocytes % 0; Myelocytes % 0; Promyelocytes % 0; Reactive Lymphocytes 0
[2022-03-24 05:36] LABS: Band Neutrophils % (manual) 5; Lymphocytes % (manual) 1 (10.0-50.0); Monocytes % (manual) 4 (0-12)
[2022-03-24] MEDS ORDERED: ALBUTEROL SULF 2.5 MG/0.5ML(0.5%) NEB SOLN NEB ONE (06:00)
[2022-03-24] MEDS ORDERED: CALCIUM GLUC 1,000mg/50ml-NS 50 ML IV ONE (06:00)
[2022-03-24] MEDS ORDERED: DEXTROSE (50%) 50ML SYRG IV ONE (06:00)
[2022-03-24] MEDS ORDERED: SODIUM BICARBONATE 8.4 % INJ 50ML VIAL IV ONE ×2 (06:00→08:00)
[2022-03-24] MEDS ORDERED: InsuLIN REG 1unit/0.01ml Soln (100units/ml) IV ONE (06:00)
[2022-03-24] MEDS: SUCRALFATE 1 GM/10 ML ORAL SUSP PO SCH ×4 (06:50→21:55)
[2022-03-24] MEDS ORDERED: SODIUM BICARBONATE 8.4% INJ 50ML SYRINGE ONE (07:49)
[2022-03-24] MEDS: PHENYLEPHRINE INJ 80 MG in SODIUM CHL 0.9% 242 ML IV SCH (07:56)
[2022-03-24] MEDS ORDERED: NITROGLYCERIN 2% OINT 1GM PKG TD ONE (08:45)
[2022-03-24] MEDS: EPINEPHrine HCL 250 ML IV SCH (09:15)
[2022-03-24] MEDS ORDERED: FUROSEMIDE 100 MG/10ML VIAL IV ONE (09:30)
[2022-03-24] MEDS: PANTOPRAZOLE 40 MG/10 ML VIAL INJ IV SCH ×2 (09:50→21:55)
[2022-03-24] MEDS: SODIUM BICARBONATE 50ML VIAL 150 ML in D5W 5% 1,000 ML IV SCH ×2 (09:50→20:23)
[2022-03-24] MEDS: LINEZOLID 600MG/300ML 300 ML IV SCH ×2 (09:51→21:55)
[2022-03-24 09:52] LABS: Protein, Urine 75.3 mg/dL (0.0-11.9)
[2022-03-24 10:22] LABS: Hematocrit 23.7 % (41.0-53.0); Hemoglobin 7.9 g/dL (13.5-17.5)
[2022-03-24] MEDS ORDERED: MEROPENEM 1GM IVPB 100 ML IV ONE (14:15)
[2022-03-24] MEDS: MEROPENEM 1GM IVPB 100 ML IV SCH (14:35)
[2022-03-24] MEDS: AMIODARONE 450mg/250ml AE 250 ML IV SCH (16:50)
[2022-03-24 18:22] LABS: BUN/Creatinine Ratio 33.6; Calcium 7.7 mg/dL (8.5-10.1); Potassium 4.6 mmol/L (3.5-5.1)
[2022-03-24 18:31] LABS: Hematocrit 21.9 % (41.0-53.0); Hemoglobin 7.2 g/dL (13.5-17.5)
[2022-03-24] MEDS: PROPOFOL 100 ML IV SCH (19:15)
[2022-03-24] MEDS: fentaNYL Drip 2500mCg/250mlNS 250 ML IV SCH (23:07)
[2022-03-25] VITALS (99 sets, daily range): BP systolic 47–206; BP diastolic 17–91
[2022-03-25] MEDS: VASOPRESSIN 50 UNITS in D5W 5% 247.5 ML IV SCH ×2 (00:05→22:45)
[2022-03-25] MEDS: MIDAZOLAM DRIP 50 mg/50mL 50 ML IV SCH ×2 (00:30→03:50)
[2022-03-25 01:01] LABS: Hemoglobin 8.4 g/dL (13.5-17.5)
[2022-03-25 01:03] LABS: Hematocrit 25.6 % (41.0-53.0)
[2022-03-25] MEDS: MEROPENEM 1GM IVPB 100 ML IV SCH ×2 (02:51→14:33)
[2022-03-25 03:50] LABS: Eosinophils # (auto) 0.1 10 ^3/uL (0-0.8); Hemoglobin 7.4 g/dL (13.5-17.5); Mean Corpuscular Volume 94.9 fL (80.0-100.0); Nucleated Red Blood Cells % 0.1 %
[2022-03-25 03:51] LABS: Basophils # (auto) 0 10 ^3/uL (0-0.2); Basophils % (auto) 0.1 % (0.0-2.0); Eosinophils % (auto) 0.3 % (0.0-7.0); Hematocrit 22.3 % (41.0-53.0); Lymphocytes # (auto) 1.8 10 ^3/uL (0.4-5.4); Lymphocytes % (auto) 7.4 % (10.0-50.0); Mean Corpuscular Hemoglobin 31.4 pg (28.0-32.0); Mean Corpuscular Hgb Conc. 33.1 g/dL (32.0-36.0); Monocytes # (auto) 1.5 10 ^3/uL (0-1.3); Monocytes % (auto) 6.1 % (0.0-12.0); Neutrophils % (auto) 86.1 % (37.0-80.0); Red Blood Cells 2.35 10^6/uL (4.5-5.90); Red Cell Distribution Width 15.5 % (11.8-14.3); White Blood Cell 24.4 10^3/uL (4.4-10.8)
[2022-03-25 04:18] LABS: Calcium 7.6 mg/dL (8.5-10.1); Potassium 4.2 mmol/L (3.5-5.1)
[2022-03-25 04:20] LABS: BUN/Creatinine Ratio 35.6
[2022-03-25] MEDS: AMIODARONE 450mg/250ml AE 250 ML IV SCH ×2 (05:11→13:10)
[2022-03-25] MEDS: SODIUM BICARBONATE 50ML VIAL 150 ML in D5W 5% 1,000 ML IV SCH (05:54)
[2022-03-25] MEDS: SUCRALFATE 1 GM/10 ML ORAL SUSP PO SCH ×4 (06:33→21:52)
[2022-03-25] MEDS: EPINEPHrine HCL 250 ML IV SCH (09:15)
[2022-03-25] MEDS: FUROSEMIDE 40 MG/4 ML VIAL IV SCH (10:41)
[2022-03-25] MEDS: PANTOPRAZOLE 40 MG/10 ML VIAL INJ IV SCH ×2 (10:41→21:52)
[2022-03-25] MEDS: LINEZOLID 600MG/300ML 300 ML IV SCH ×2 (10:42→21:52)
[2022-03-25] MEDS: DIGOXIN (250MCG/ML) 2 ML AMPULE IV SCH (11:03)
[2022-03-25] MEDS: NOREPINEPHRINE BITARTRATE 32 MG in SODIUM CHL 0.9% 218 ML IV SCH (11:34)
[2022-03-25] MEDS: METOCLOPRAMIDE HCL 5MG/ml INJ 2ml VIAL IV SCH ×3 (12:03→23:56)
[2022-03-25] MEDS: SODIUM BICARBONATE 50ML VIAL 50 ML in SOD CHL 0.45% 1,000 ML IV SCH ×2 (12:03→20:40)
[2022-03-25] MEDS ORDERED: AMIODARONE HCL 200 MG TAB NG ONE (13:00)
[2022-03-25] MEDS ORDERED: NITROGLYCERIN 2% OINT 1GM PKG TD ONE (17:45)
[2022-03-25] MEDS: PROPOFOL 100 ML IV SCH (19:15)
[2022-03-25] MEDS: AMIODARONE HCL 200 MG TAB NG SCH (21:52)
[2022-03-25] MEDS: fentaNYL Drip 2500mCg/250mlNS 250 ML IV SCH (22:01)
[2022-03-26] VITALS (104 sets, daily range): BP systolic 70–169; BP diastolic 30–83
[2022-03-26] MEDS: NOREPINEPHRINE BITARTRATE 32 MG in SODIUM CHL 0.9% 218 ML IV SCH ×2 (03:04→16:30)
[2022-03-26] MEDS: MEROPENEM 1GM IVPB 100 ML IV SCH ×2 (03:05→17:33)
[2022-03-26] MEDS: AMIODARONE 450mg/250ml AE 250 ML IV SCH (03:05)
[2022-03-26] MEDS: PHENYLEPHRINE INJ 80 MG in SODIUM CHL 0.9% 242 ML IV SCH ×2 (03:06→16:30)
[2022-03-26] MEDS: SODIUM BICARBONATE 50ML VIAL 50 ML in SOD CHL 0.45% 1,000 ML IV SCH (04:45)
[2022-03-26] MEDS: METOCLOPRAMIDE HCL 5MG/ml INJ 2ml VIAL IV SCH ×3 (05:54→17:32)
[2022-03-26] MEDS: SUCRALFATE 1 GM/10 ML ORAL SUSP PO SCH ×4 (06:33→21:34)
[2022-03-26] MEDS: LINEZOLID 600MG/300ML 300 ML IV SCH ×2 (10:46→21:35)
[2022-03-26] MEDS: FUROSEMIDE 40 MG/4 ML VIAL IV SCH (10:47)
[2022-03-26] MEDS: PANTOPRAZOLE 40 MG/10 ML VIAL INJ IV SCH ×2 (10:47→21:34)
[2022-03-26] MEDS: AMIODARONE HCL 200 MG TAB NG SCH ×2 (10:47→21:41)
[2022-03-26 11:23] LABS: INR 1.66 (0.9-1.15)
[2022-03-26 11:56] LABS: Eosinophils # (auto) 0.2 10 ^3/uL (0-0.8); Monocytes # (auto) 0.9 10 ^3/uL (0-1.3); Monocytes % (auto) 6.1 % (0.0-12.0)
[2022-03-26 11:59] LABS: Basophils # (auto) 0.2 10 ^3/uL (0-0.2); Eosinophils % (auto) 1.4 % (0.0-7.0); Hematocrit 22.3 % (41.0-53.0); Hemoglobin 7.6 g/dL (13.5-17.5); Lymphocytes # (auto) 1.9 10 ^3/uL (0.4-5.4); Lymphocytes % (auto) 12.6 % (10.0-50.0); Mean Corpuscular Hemoglobin 31.7 pg (28.0-32.0); Mean Corpuscular Hgb Conc. 33.9 g/dL (32.0-36.0); Mean Corpuscular Volume 93.4 fL (80.0-100.0); Neutrophils # (auto) 11.8 10 ^3/uL (1.6-8.6); Neutrophils % (auto) 78.9 % (37.0-80.0); Nucleated Red Blood Cells % 0.1 %; Red Blood Cells 2.39 10^6/uL (4.5-5.90); White Blood Cell 14.9 10^3/uL (4.4-10.8)
[2022-03-26 12:15] LABS: Albumin 1.2 g/dL (3.4-5.0); Calcium 7.2 mg/dL (8.5-10.1)
[2022-03-26 12:20] LABS: BUN/Creatinine Ratio 36.5; Bilirubin, Total 0.9 mg/dL (0.2-1.0)
[2022-03-26] MEDS: PROPOFOL 100 ML IV SCH (19:15)
[2022-03-26] MEDS: fentaNYL Drip 2500mCg/250mlNS 250 ML IV SCH (21:38)
[2022-03-26] MEDS: VASOPRESSIN 50 UNITS in D5W 5% 247.5 ML IV SCH (22:45)
[2022-03-27] VITALS (101 sets, daily range): BP systolic 79–143; BP diastolic 43–77
[2022-03-27] MEDS: METOCLOPRAMIDE HCL 5MG/ml INJ 2ml VIAL IV SCH ×4 (00:06→18:24)
[2022-03-27] MEDS: EPINEPHrine HCL 250 ML IV SCH ×2 (00:08→08:32)
[2022-03-27] MEDS: MIDAZOLAM DRIP 50 mg/50mL 50 ML IV SCH ×3 (00:08→22:30)
[2022-03-27] MEDS: MEROPENEM 1GM IVPB 100 ML IV SCH ×2 (02:46→13:43)
[2022-03-27] MEDS: SUCRALFATE 1 GM/10 ML ORAL SUSP PO SCH ×4 (05:50→21:58)
[2022-03-27 06:30] LABS: Albumin 1.2 g/dL (3.4-5.0); Calcium 7.4 mg/dL (8.5-10.1); Potassium 3.9 mmol/L (3.5-5.1)
[2022-03-27 06:36] LABS: Basophils # (auto) 0.1 10 ^3/uL (0-0.2); Eosinophils # (auto) 0.2 10 ^3/uL (0-0.8); Neutrophils # (auto) 9.2 10 ^3/uL (1.6-8.6)
[2022-03-27 06:40] LABS: Basophils % (auto) 0.9 % (0.0-2.0); Eosinophils % (auto) 1.5 % (0.0-7.0); Hematocrit 22.8 % (41.0-53.0); Hemoglobin 7.8 g/dL (13.5-17.5); Lymphocytes # (auto) 1.5 10 ^3/uL (0.4-5.4); Lymphocytes % (auto) 12.3 % (10.0-50.0); Mean Corpuscular Hgb Conc. 34.2 g/dL (32.0-36.0); Mean Corpuscular Volume 93.5 fL (80.0-100.0); Monocytes # (auto) 0.9 10 ^3/uL (0-1.3); Monocytes % (auto) 7.7 % (0.0-12.0); Neutrophils % (auto) 77.6 % (37.0-80.0); Nucleated Red Blood Cells % 0.2 %; Red Blood Cells 2.44 10^6/uL (4.5-5.90); Red Cell Distribution Width 14.7 % (11.8-14.3); White Blood Cell 11.9 10^3/uL (4.4-10.8)
[2022-03-27 06:44] LABS: Bilirubin, Total 0.9 mg/dL (0.2-1.0); Total Protein 4.2 g/dL (6.4-8.2)
[2022-03-27] MEDS: PANTOPRAZOLE 40 MG/10 ML VIAL INJ IV SCH ×2 (09:24→22:01)
[2022-03-27] MEDS: LINEZOLID 600MG/300ML 300 ML IV SCH (09:24)
[2022-03-27] MEDS: FUROSEMIDE 40 MG/4 ML VIAL IV SCH (09:24)
[2022-03-27] MEDS: AMIODARONE HCL 200 MG TAB NG SCH ×2 (09:25→22:02)
[2022-03-27] MEDS: fentaNYL Drip 2500mCg/250mlNS 250 ML IV SCH (12:25)
[2022-03-27] MEDS ORDERED: SODIUM FERR GLUC 62.5MG/5ML 125 MG in SODIUM CHL 0.9% 100 ML IV ONE (14:15)
[2022-03-27] MEDS: NOREPINEPHRINE BITARTRATE 32 MG in SODIUM CHL 0.9% 218 ML IV SCH (15:27)
[2022-03-27] MEDS: PHENYLEPHRINE INJ 80 MG in SODIUM CHL 0.9% 242 ML IV SCH (15:27)
[2022-03-27] MEDS: PROPOFOL 100 ML IV SCH (19:15)
[2022-03-28] VITALS (106 sets, daily range): BP systolic 79–127; BP diastolic 49–76
[2022-03-28] MEDS: METOCLOPRAMIDE HCL 5MG/ml INJ 2ml VIAL IV SCH ×5 (00:49→23:47)
[2022-03-28] MEDS: MIDAZOLAM DRIP 50 mg/50mL 50 ML IV SCH ×7 (01:50→21:50)
[2022-03-28] MEDS: MEROPENEM 1GM IVPB 100 ML IV SCH ×2 (03:13→16:05)
[2022-03-28] MEDS: fentaNYL Drip 2500mCg/250mlNS 250 ML IV SCH (03:19)
[2022-03-28] MEDS: PHENYLEPHRINE INJ 80 MG in SODIUM CHL 0.9% 242 ML IV SCH (03:22)
[2022-03-28 04:34] LABS: Basophils # (auto) 0.1 10 ^3/uL (0-0.2); Basophils % (auto) 0.7 % (0.0-2.0); Eosinophils # (auto) 0.4 10 ^3/uL (0-0.8); Eosinophils % (auto) 3.7 % (0.0-7.0); Hematocrit 23.1 % (41.0-53.0); Lymphocytes # (auto) 1.1 10 ^3/uL (0.4-5.4); Lymphocytes % (auto) 10.3 % (10.0-50.0); Mean Corpuscular Hemoglobin 32.3 pg (28.0-32.0); Mean Corpuscular Hgb Conc. 34.6 g/dL (32.0-36.0); Mean Corpuscular Volume 93.5 fL (80.0-100.0); Monocytes # (auto) 1.1 10 ^3/uL (0-1.3); Monocytes % (auto) 9.5 % (0.0-12.0); Neutrophils # (auto) 8.5 10 ^3/uL (1.6-8.6); Neutrophils % (auto) 75.8 % (37.0-80.0); Nucleated Red Blood Cells % 0.1 %; Red Blood Cells 2.48 10^6/uL (4.5-5.90); Red Cell Distribution Width 15.2 % (11.8-14.3); White Blood Cell 11.2 10^3/uL (4.4-10.8)
[2022-03-28 04:42] LABS: Potassium 3.9 mmol/L (3.5-5.1)
[2022-03-28 04:46] LABS: BUN/Creatinine Ratio 36.6; Calcium 7.3 mg/dL (8.5-10.1)
[2022-03-28 04:58] LABS: INR 1.64 (0.9-1.15)
[2022-03-28] MEDS: SUCRALFATE 1 GM/10 ML ORAL SUSP PO SCH ×4 (05:44→23:41)
[2022-03-28] MEDS: PANTOPRAZOLE 40 MG/10 ML VIAL INJ IV SCH ×2 (10:52→23:39)
[2022-03-28] MEDS: DIGOXIN (250MCG/ML) 2 ML AMPULE IV SCH (10:52)
[2022-03-28] MEDS: AMIODARONE HCL 200 MG TAB NG SCH ×2 (10:54→23:41)
[2022-03-28] MEDS: SODIUM FERR GLUC 62.5MG/5ML 125 MG in SODIUM CHL 0.9% 100 ML IV SCH (12:39)
[2022-03-28] MEDS: NOREPINEPHRINE BITARTRATE 32 MG in SODIUM CHL 0.9% 218 ML IV SCH (16:30)
[2022-03-28] MEDS: PROPOFOL 100 ML IV SCH (19:15)
[2022-03-29] VITALS (104 sets, daily range): BP systolic 75–152; BP diastolic 39–107
[2022-03-29] MEDS: MIDAZOLAM DRIP 50 mg/50mL 50 ML IV SCH ×6 (01:10→17:50)
[2022-03-29] MEDS: MEROPENEM 1GM IVPB 100 ML IV SCH ×2 (02:30→14:39)
[2022-03-29] MEDS: METOCLOPRAMIDE HCL 5MG/ml INJ 2ml VIAL IV SCH ×2 (05:24→12:22)
[2022-03-29] MEDS: SUCRALFATE 1 GM/10 ML ORAL SUSP PO SCH ×4 (05:25→21:32)
[2022-03-29 06:21] LABS: Basophils # (auto) 0.1 10 ^3/uL (0-0.2); Basophils % (auto) 0.9 % (0.0-2.0); Lymphocytes # (auto) 1.2 10 ^3/uL (0.4-5.4); Neutrophils # (auto) 6.1 10 ^3/uL (1.6-8.6)
[2022-03-29 06:24] LABS: Eosinophils # (auto) 0.6 10 ^3/uL (0-0.8); Eosinophils % (auto) 6.9 % (0.0-7.0); Hematocrit 21.6 % (41.0-53.0); Hemoglobin 7.7 g/dL (13.5-17.5); Lymphocytes % (auto) 13.8 % (10.0-50.0); Mean Corpuscular Hemoglobin 33.6 pg (28.0-32.0); Mean Corpuscular Hgb Conc. 35.6 g/dL (32.0-36.0); Mean Corpuscular Volume 94.3 fL (80.0-100.0); Monocytes # (auto) 0.9 10 ^3/uL (0-1.3); Monocytes % (auto) 10.5 % (0.0-12.0); Neutrophils % (auto) 67.9 % (37.0-80.0); Nucleated Red Blood Cells % 0.2 %; Red Blood Cells 2.29 10^6/uL (4.5-5.90); Red Cell Distribution Width 15.3 % (11.8-14.3)
[2022-03-29 06:31] LABS: BUN/Creatinine Ratio 31.1; Calcium 7.6 mg/dL (8.5-10.1)
[2022-03-29 06:34] LABS: INR 1.48 (0.9-1.15); Partial Thromboplastin Time 55.9 sec (23.6-33.0)
[2022-03-29] MEDS: fentaNYL Drip 2500mCg/250mlNS 250 ML IV SCH ×2 (06:54→20:12)
[2022-03-29] MEDS: PHENYLEPHRINE INJ 80 MG in SODIUM CHL 0.9% 242 ML IV SCH ×2 (08:22→17:39)
[2022-03-29] MEDS: AMIODARONE HCL 200 MG TAB NG SCH (08:38)
[2022-03-29] MEDS: PANTOPRAZOLE 40 MG/10 ML VIAL INJ IV SCH ×2 (10:04→21:32)
[2022-03-29] MEDS: SODIUM FERR GLUC 62.5MG/5ML 125 MG in SODIUM CHL 0.9% 100 ML IV SCH (12:12)
[2022-03-29] MEDS ORDERED: FUROSEMIDE 20 MG/2 ML VIAL IV ONE (13:30)
[2022-03-29] MEDS: NOREPINEPHRINE BITARTRATE 32 MG in SODIUM CHL 0.9% 218 ML IV SCH (16:00)
[2022-03-29] MEDS: PROPOFOL 100 ML IV SCH (18:33)
[2022-03-29] MEDS: AMIODARONE HCL 200 MG TAB PO SCH (21:33)
[2022-03-30] VITALS (95 sets, daily range): BP systolic 84–120; BP diastolic 34–64
[2022-03-30] MEDS: PHENYLEPHRINE INJ 80 MG in SODIUM CHL 0.9% 242 ML IV SCH ×4 (00:40→22:06)
[2022-03-30] MEDS: MEROPENEM 1GM IVPB 100 ML IV SCH ×2 (02:49→15:18)
[2022-03-30] MEDS: NOREPINEPHRINE BITARTRATE 32 MG in SODIUM CHL 0.9% 218 ML IV SCH (03:00)
[2022-03-30 04:18] LABS: Basophils # (auto) 0.1 10 ^3/uL (0-0.2); Eosinophils # (auto) 0.7 10 ^3/uL (0-0.8); Hematocrit 21.6 % (41.0-53.0); Lymphocytes # (auto) 1.4 10 ^3/uL (0.4-5.4); Nucleated Red Blood Cells % 0.1 %; Red Cell Distribution Width 15.2 % (11.8-14.3); White Blood Cell 10.8 10^3/uL (4.4-10.8)
[2022-03-30 04:26] LABS: Eosinophils % (auto) 6.1 % (0.0-7.0); Hemoglobin 7.6 g/dL (13.5-17.5); Lymphocytes % (auto) 12.7 % (10.0-50.0); Mean Corpuscular Hemoglobin 33.1 pg (28.0-32.0); Mean Corpuscular Hgb Conc. 35.1 g/dL (32.0-36.0); Mean Corpuscular Volume 94.2 fL (80.0-100.0); Monocytes # (auto) 1.3 10 ^3/uL (0-1.3); Monocytes % (auto) 11.8 % (0.0-12.0); Neutrophils # (auto) 7.4 10 ^3/uL (1.6-8.6); Neutrophils % (auto) 68.4 % (37.0-80.0); Red Blood Cells 2.29 10^6/uL (4.5-5.90)
[2022-03-30 04:33] LABS: BUN/Creatinine Ratio 31.3; Calcium 7.7 mg/dL (8.5-10.1)
[2022-03-30] MEDS: fentaNYL Drip 2500mCg/250mlNS 250 ML IV SCH ×2 (06:14→18:21)
[2022-03-30] MEDS: SUCRALFATE 1 GM/10 ML ORAL SUSP PO SCH ×4 (06:36→22:02)
[2022-03-30] MEDS: PANTOPRAZOLE 40 MG/10 ML VIAL INJ IV SCH ×2 (10:46→22:02)
[2022-03-30] MEDS: AMIODARONE HCL 200 MG TAB PO SCH ×2 (10:47→22:03)
[2022-03-30] MEDS: DIGOXIN (250MCG/ML) 2 ML AMPULE IV SCH (10:48)
[2022-03-30] MEDS: SODIUM FERR GLUC 62.5MG/5ML 125 MG in SODIUM CHL 0.9% 100 ML IV SCH (12:55)
[2022-03-30] MEDS ORDERED: TPN PER PHARMACY 0 ML IV SCH (15:30)
[2022-03-30 18:20] LABS: Urine Bacteria FEW /hpf (None Seen); Urine Blood Negative /uL (Negative); Urine WBC 23 /hpf (0 - 3)
[2022-03-30] MEDS: PROPOFOL 100 ML IV SCH (19:30)
[2022-03-30] MEDS ORDERED: AMINO ACID INFUSION IN D10W 1,000 ML IV NR (20:00)
[2022-03-31] VITALS (87 sets, daily range): BP systolic 87–133; BP diastolic 41–70
[2022-03-31] MEDS: MEROPENEM 1GM IVPB 100 ML IV SCH ×3 (02:34→21:31)
[2022-03-31] MEDS ORDERED: PHENYLEPHRINE IV 250 ML IV ONE (03:21)
[2022-03-31] MEDS ORDERED: PHENYLEPHRINE HCL 10 MG/ML VL ONE (03:22)
[2022-03-31 03:56] LABS: Basophils # (auto) 0.1 10 ^3/uL (0-0.2); Lymphocytes # (auto) 1.5 10 ^3/uL (0.4-5.4)
[2022-03-31 04:17] LABS: Albumin 1.3 g/dL (3.4-5.0); Calcium 7.7 mg/dL (8.5-10.1); Magnesium 1.6 mg/dL (1.6-2.6); Potassium 3.9 mmol/L (3.5-5.1)
[2022-03-31 04:26] LABS: BUN/Creatinine Ratio 32.7; Bilirubin, Total 0.6 mg/dL (0.2-1.0); Phosphorus 2.8 mg/dL (2.5-4.90); Total Protein 4.4 g/dL (6.4-8.2)
[2022-03-31] MEDS: PHENYLEPHRINE INJ 80 MG in SODIUM CHL 0.9% 242 ML IV SCH (05:03)
[2022-03-31 05:22] LABS: Basophils % (auto) 1.3 % (0.0-2.0); Eosinophils # (auto) 0.5 10 ^3/uL (0-0.8); Eosinophils % (auto) 5.6 % (0.0-7.0); Hematocrit 21.2 % (41.0-53.0); Hemoglobin 7.3 g/dL (13.5-17.5); Lymphocytes % (auto) 15.3 % (10.0-50.0); Mean Corpuscular Hemoglobin 32.8 pg (28.0-32.0); Mean Corpuscular Hgb Conc. 34.5 g/dL (32.0-36.0); Mean Corpuscular Volume 95.1 fL (80.0-100.0); Monocytes # (auto) 1.6 10 ^3/uL (0-1.3); Monocytes % (auto) 16.3 % (0.0-12.0); Neutrophils % (auto) 61.5 % (37.0-80.0); Nucleated Red Blood Cells % 0.2 %; Red Blood Cells 2.23 10^6/uL (4.5-5.90); Red Cell Distribution Width 15.6 % (11.8-14.3); White Blood Cell 9.7 10^3/uL (4.4-10.8)
[2022-03-31] MEDS: fentaNYL Drip 2500mCg/250mlNS 250 ML IV SCH ×2 (05:40→17:58)
[2022-03-31] MEDS: SUCRALFATE 1 GM/10 ML ORAL SUSP PO SCH ×4 (06:43→21:29)
[2022-03-31] MEDS: AMIODARONE HCL 200 MG TAB PO SCH ×2 (09:55→22:00)
[2022-03-31] MEDS: PANTOPRAZOLE 40 MG/10 ML VIAL INJ IV SCH ×2 (09:55→21:29)
[2022-03-31] MEDS ORDERED: methylPREDNISolone SOD SUCC 125 MG/2 ML VL IV ONE (10:30)
[2022-03-31] MEDS ORDERED: MAGNESIUM SULFATE 1GM/100ML 100 ML IV ONE (11:45)
[2022-03-31] MEDS: SODIUM FERR GLUC 62.5MG/5ML 125 MG in SODIUM CHL 0.9% 100 ML IV SCH (12:00)
[2022-03-31] MEDS ORDERED: DEXTROSE (50%) 50ML SYRG IV SCH (12:00)
[2022-03-31] MEDS: InsuLIN REG 1unit/0.01ml Soln (100units/ml) SC SCH ×2 (12:25→17:32)
[2022-03-31] MEDS: ACCU-CHEK COMFORT CURVE STRIP VI SCH ×2 (12:29→17:32)
[2022-03-31] MEDS: NOREPINEPHRINE BITARTRATE 32 MG in SODIUM CHL 0.9% 218 ML IV SCH (16:05)
[2022-03-31] MEDS: PROPOFOL 100 ML IV SCH (19:15)
[2022-03-31] MEDS: MIDAZOLAM DRIP 50 mg/50mL 50 ML IV SCH ×2 (19:50→23:10)
[2022-03-31] MEDS ORDERED: TPN PER PHARMACY IV NR ×7 (20:00)
[2022-03-31] MEDS: methylPREDNISolone SOD SUCC 40 MG/ML VL IV SCH (21:28)
[2022-04-01] VITALS (93 sets, daily range): BP systolic 17–134; BP diastolic 41–73
[2022-04-01] MEDS: InsuLIN REG 1unit/0.01ml Soln (100units/ml) SC SCH ×4 (00:09→17:39)
[2022-04-01] MEDS: PHENYLEPHRINE INJ 80 MG in SODIUM CHL 0.9% 242 ML IV SCH (02:01)
[2022-04-01] MEDS: MIDAZOLAM DRIP 50 mg/50mL 50 ML IV SCH ×4 (02:30→21:10)
[2022-04-01 04:16] LABS: Basophils # (auto) 0 10 ^3/uL (0-0.2); Eosinophils # (auto) 0 10 ^3/uL (0-0.8); Monocytes # (auto) 0.2 10 ^3/uL (0-1.3); White Blood Cell 5.7 10^3/uL (4.4-10.8)
[2022-04-01 04:17] LABS: Basophils % (auto) 0.4 % (0.0-2.0); Hematocrit 21.3 % (41.0-53.0); Hemoglobin 7.4 g/dL (13.5-17.5); Lymphocytes # (auto) 0.5 10 ^3/uL (0.4-5.4); Lymphocytes % (auto) 9.1 % (10.0-50.0); Mean Corpuscular Hemoglobin 32.8 pg (28.0-32.0); Mean Corpuscular Hgb Conc. 34.9 g/dL (32.0-36.0); Mean Corpuscular Volume 94.1 fL (80.0-100.0); Monocytes % (auto) 3.5 % (0.0-12.0); Nucleated Red Blood Cells % 0.2 %; Red Blood Cells 2.26 10^6/uL (4.5-5.90)
[2022-04-01 04:35] LABS: Albumin 1.3 g/dL (3.4-5.0); BUN/Creatinine Ratio 32.6; Bilirubin, Total 0.4 mg/dL (0.2-1.0); Calcium 7.7 mg/dL (8.5-10.1); Magnesium 2.2 mg/dL (1.6-2.6); Phosphorus 1.7 mg/dL (2.5-4.90); Potassium 4.1 mmol/L (3.5-5.1); Total Protein 4.5 g/dL (6.4-8.2)
[2022-04-01] MEDS: fentaNYL Drip 2500mCg/250mlNS 250 ML IV SCH (05:50)
[2022-04-01] MEDS: ACCU-CHEK COMFORT CURVE STRIP VI SCH ×4 (06:00→17:39)
[2022-04-01] MEDS: MEROPENEM 1GM IVPB 100 ML IV SCH ×3 (06:33→22:00)
[2022-04-01] MEDS: SUCRALFATE 1 GM/10 ML ORAL SUSP PO SCH ×4 (07:00→21:59)
[2022-04-01] MEDS: methylPREDNISolone SOD SUCC 40 MG/ML VL IV SCH ×2 (10:04→21:59)
[2022-04-01] MEDS: PANTOPRAZOLE 40 MG/10 ML VIAL INJ IV SCH ×2 (10:04→21:59)
[2022-04-01] MEDS: AMIODARONE HCL 200 MG TAB PO SCH ×2 (10:05→22:00)
[2022-04-01] MEDS: DIGOXIN (250MCG/ML) 2 ML AMPULE IV SCH (10:15)
[2022-04-01] MEDS ORDERED: SODIUM PHOSPHATES 20 MEQ in SODIUM CHL 0.9% 100 ML IV ONE (10:30)
[2022-04-01] MEDS: SODIUM FERR GLUC 62.5MG/5ML 125 MG in SODIUM CHL 0.9% 100 ML IV SCH (12:34)
[2022-04-01] MEDS ORDERED: ALBUMIN 25% 50 ML IV ONE (14:15)
[2022-04-01] MEDS ORDERED: FUROSEMIDE 20 MG/2 ML VIAL IV ONE (14:15)
[2022-04-01] MEDS: NOREPINEPHRINE BITARTRATE 32 MG in SODIUM CHL 0.9% 218 ML IV SCH (16:30)
[2022-04-01] MEDS: PROPOFOL 100 ML IV SCH (19:15)
[2022-04-01] MEDS ORDERED: TPN PER PHARMACY IV NR ×10 (20:00)
[2022-04-02] VITALS (98 sets, daily range): BP systolic 75–129; BP diastolic 41–80
[2022-04-02] MEDS: InsuLIN REG 1unit/0.01ml Soln (100units/ml) SC SCH ×4 (00:03→17:51)
[2022-04-02] MEDS: ACCU-CHEK COMFORT CURVE STRIP VI SCH ×4 (00:04→17:39)
[2022-04-02] MEDS: fentaNYL Drip 2500mCg/250mlNS 250 ML IV SCH ×2 (04:21→14:40)
[2022-04-02 04:24] LABS: Calcium 7.8 mg/dL (8.5-10.1); Potassium 3.7 mmol/L (3.5-5.1)
[2022-04-02 04:25] LABS: Calcium 7.8 mg/dL (8.5-10.1); Potassium 3.7 mmol/L (3.5-5.1)
[2022-04-02 04:27] LABS: BUN/Creatinine Ratio 36.1
[2022-04-02 04:29] LABS: Albumin 1.5 g/dL (3.4-5.0); BUN/Creatinine Ratio 36.1; Magnesium 2.3 mg/dL (1.6-2.6); Phosphorus 1.9 mg/dL (2.5-4.90)
[2022-04-02] MEDS: MEROPENEM 1GM IVPB 100 ML IV SCH ×3 (05:53→21:44)
[2022-04-02] MEDS: SUCRALFATE 1 GM/10 ML ORAL SUSP PO SCH ×4 (07:00→21:43)
[2022-04-02] MEDS: MIDAZOLAM DRIP 50 mg/50mL 50 ML IV SCH ×2 (09:39→14:38)
[2022-04-02] MEDS: AMIODARONE HCL 200 MG TAB PO SCH ×2 (09:40→21:44)
[2022-04-02] MEDS: methylPREDNISolone SOD SUCC 40 MG/ML VL IV SCH ×2 (09:46→21:44)
[2022-04-02] MEDS: PANTOPRAZOLE 40 MG/10 ML VIAL INJ IV SCH ×2 (09:46→21:44)
[2022-04-02] MEDS: FUROSEMIDE 20 MG/2 ML VIAL IV SCH (09:46)
[2022-04-02] MEDS: SODIUM FERR GLUC 62.5MG/5ML 125 MG in SODIUM CHL 0.9% 100 ML IV SCH (11:57)
[2022-04-02] MEDS ORDERED: SODIUM PHOSP 40 MEQ in D5W 5% 250 ML IV ONE (12:15)
[2022-04-02 12:37] LABS: Urine Bacteria NONE SEEN /hpf (None Seen); Urine Blood 2+ /uL (Negative); Urine Hyaline Cast FEW /lpf (0 - 2); Urine Mucus FEW (None Seen); Urine Specific Gravity 1.008 (1.001-1.035); Urine WBC 6 /hpf (0 - 3)
[2022-04-02 12:55] LABS: Sodium Urine 81 mmol/L (40-220)
[2022-04-02 12:56] LABS: Creatinine, Urine 16 mg/dL (30.0-125.0)
[2022-04-02] MEDS: PHENYLEPHRINE INJ 80 MG in SODIUM CHL 0.9% 242 ML IV SCH (16:30)
[2022-04-02] MEDS: NOREPINEPHRINE BITARTRATE 32 MG in SODIUM CHL 0.9% 218 ML IV SCH (17:13)
[2022-04-02] MEDS: PROPOFOL 100 ML IV SCH (19:15)
[2022-04-02] MEDS ORDERED: TPN PER PHARMACY IV NR ×11 (20:00)
[2022-04-03] VITALS (66 sets, daily range): BP systolic 79–166; BP diastolic 46–113
[2022-04-03] MEDS: InsuLIN REG 1unit/0.01ml Soln (100units/ml) SC SCH ×4 (00:31→18:38)
[2022-04-03] MEDS: fentaNYL Drip 2500mCg/250mlNS 250 ML IV SCH ×2 (03:00→15:14)
[2022-04-03] MEDS: MIDAZOLAM DRIP 50 mg/50mL 50 ML IV SCH ×4 (04:00→17:50)
[2022-04-03 04:37] LABS: Hematocrit 23.5 % (41.0-53.0); White Blood Cell 16.3 10^3/uL (4.4-10.8)
[2022-04-03 04:39] LABS: Hemoglobin 8.3 g/dL (13.5-17.5); Mean Corpuscular Hemoglobin 33.2 pg (28.0-32.0); Mean Corpuscular Hgb Conc. 35.3 g/dL (32.0-36.0); Mean Corpuscular Volume 93.9 fL (80.0-100.0); Red Cell Distribution Width 15.1 % (11.8-14.3)
[2022-04-03 04:50] LABS: Band Neutrophils % (manual) 0; Basophils % (manual) 0 (0.0-2.0); Blast Cells 0; Eosinophils % (manual) 0 (0-7); Metamyelocytes % 0; Myelocytes % 0; Promyelocytes % 0; Reactive Lymphocytes 0
[2022-04-03] MEDS: MEROPENEM 1GM IVPB 100 ML IV SCH ×2 (05:49→16:17)
[2022-04-03] MEDS: ACCU-CHEK COMFORT CURVE STRIP VI SCH ×4 (06:25→17:57)
[2022-04-03] MEDS: methylPREDNISolone SOD SUCC 40 MG/ML VL IV SCH (11:08)
[2022-04-03] MEDS: FUROSEMIDE 20 MG/2 ML VIAL IV SCH ×2 (11:09→17:57)
[2022-04-03] MEDS: PANTOPRAZOLE 40 MG/10 ML VIAL INJ IV SCH (11:09)
[2022-04-03] MEDS: AMIODARONE HCL 200 MG TAB PO SCH (11:10)
[2022-04-03] MEDS: SUCRALFATE 1 GM/10 ML ORAL SUSP PO SCH ×2 (11:10→17:56)
[2022-04-03 11:53] LABS: Potassium 3.7 mmol/L (3.5-5.1)
[2022-04-03 11:54] LABS: Albumin 1.8 g/dL (3.4-5.0); Bilirubin, Total 0.7 mg/dL (0.2-1.0); Total Protein 4.9 g/dL (6.4-8.2)
[2022-04-03 12:30] LABS: Phosphorus 3.1 mg/dL (2.5-4.90)
[2022-04-03 12:31] LABS: Magnesium 2.2 mg/dL (1.6-2.6)
[2022-04-03] MEDS: SODIUM FERR GLUC 62.5MG/5ML 125 MG in SODIUM CHL 0.9% 100 ML IV SCH (13:09)
[2022-04-03 13:13] LABS: Hemoglobin 7.9 g/dL (13.5-17.5)
[2022-04-03 13:15] LABS: Hematocrit 23.8 % (41.0-53.0); Mean Corpuscular Hemoglobin 31.5 pg (28.0-32.0); Mean Corpuscular Hgb Conc. 33.3 g/dL (32.0-36.0); Mean Corpuscular Volume 94.7 fL (80.0-100.0); Red Blood Cells 2.52 10^6/uL (4.5-5.90); White Blood Cell 19.4 10^3/uL (4.4-10.8)
[2022-04-03 13:35] LABS: Band Neutrophils % (manual) 0; Basophils % (manual) 0 (0.0-2.0); Blast Cells 0; Eosinophils % (manual) 0 (0-7); Metamyelocytes % 0; Myelocytes % 0; Promyelocytes % 0; Reactive Lymphocytes 0
[2022-04-03 14:57] LABS: Lymphocytes % (manual) 9 (10.0-50.0); Monocytes % (manual) 5 (0-12)
[2022-04-03 15:02] LABS: Lymphocytes % (manual) 9 (10.0-50.0); Monocytes % (manual) 8 (0-12)
[2022-04-03] MEDS: ALBUMIN 25% 50 ML IV SCH (15:15)
[2022-04-03 16:17] LABS: INR 1.29 (0.9-1.15); Partial Thromboplastin Time 51.5 sec (23.6-33.0)
[2022-04-03] MEDS: NOREPINEPHRINE BITARTRATE 32 MG in SODIUM CHL 0.9% 218 ML IV SCH (16:30)
[2022-04-03] MEDS: PHENYLEPHRINE INJ 80 MG in SODIUM CHL 0.9% 242 ML IV SCH (16:30)
[2022-04-03] MEDS: TPN PER PHARMACY IV NR ×9 (20:52)
[2022-04-04] VITALS (83 sets, daily range): BP systolic 90–170; BP diastolic 54–114
[2022-04-04] MEDS: PANTOPRAZOLE 40 MG/10 ML VIAL INJ IV SCH ×3 (00:18→21:53)
[2022-04-04] MEDS: AMIODARONE HCL 200 MG TAB PO SCH ×3 (00:21→21:54)
[2022-04-04] MEDS: MEROPENEM 1GM IVPB 100 ML IV SCH ×4 (00:22→21:53)
[2022-04-04] MEDS: FUROSEMIDE 20 MG/2 ML VIAL IV SCH ×3 (00:23→21:55)
[2022-04-04] MEDS: ACCU-CHEK COMFORT CURVE STRIP VI SCH ×4 (00:25→17:55)
[2022-04-04] MEDS: ALBUMIN 25% 50 ML IV SCH ×2 (00:28→05:30)
[2022-04-04] MEDS: methylPREDNISolone SOD SUCC 40 MG/ML VL IV SCH ×3 (00:30→21:53)
[2022-04-04] MEDS: InsuLIN REG 1unit/0.01ml Soln (100units/ml) SC SCH ×4 (00:54→18:06)
[2022-04-04] MEDS: SUCRALFATE 1 GM/10 ML ORAL SUSP PO SCH ×5 (02:15→21:53)
[2022-04-04 05:09] LABS: Hematocrit 20.4 % (41.0-53.0)
[2022-04-04 05:11] LABS: Mean Corpuscular Hemoglobin 31.9 pg (28.0-32.0); Mean Corpuscular Hgb Conc. 33.8 g/dL (32.0-36.0); Mean Corpuscular Volume 94.2 fL (80.0-100.0); Red Blood Cells 2.16 10^6/uL (4.5-5.90); Red Cell Distribution Width 14.9 % (11.8-14.3); White Blood Cell 17.2 10^3/uL (4.4-10.8)
[2022-04-04 05:27] LABS: Albumin 2.1 g/dL (3.4-5.0); BUN/Creatinine Ratio 42.9; Calcium 7.7 mg/dL (8.5-10.1); Magnesium 2.1 mg/dL (1.6-2.6); Potassium 3.6 mmol/L (3.5-5.1)
[2022-04-04 05:30] LABS: Bilirubin, Total 0.9 mg/dL (0.2-1.0); Phosphorus 3.5 mg/dL (2.5-4.90); Total Protein 4.7 g/dL (6.4-8.2)
[2022-04-04 05:33] LABS: Hemoglobin 6.9 g/dL (13.5-17.5)
[2022-04-04 05:34] LABS: Basophils % (manual) 0 (0.0-2.0); Blast Cells 0; Eosinophils % (manual) 0 (0-7); Metamyelocytes % 0; Promyelocytes % 0; Reactive Lymphocytes 0
[2022-04-04 07:02] LABS: Band Neutrophils % (manual) 5; Lymphocytes % (manual) 17 (10.0-50.0); Monocytes % (manual) 11 (0-12); Myelocytes % 3
[2022-04-04] MEDS: MIDAZOLAM DRIP 50 mg/50mL 50 ML IV SCH ×2 (07:10→10:30)
[2022-04-04] MEDS: PROPOFOL 100 ML IV SCH (07:14)
[2022-04-04] MEDS: DIGOXIN (250MCG/ML) 2 ML AMPULE IV SCH (10:00)
[2022-04-04] MEDS: SODIUM FERR GLUC 62.5MG/5ML 125 MG in SODIUM CHL 0.9% 100 ML IV SCH (12:57)
[2022-04-04] MEDS: NOREPINEPHRINE BITARTRATE 32 MG in SODIUM CHL 0.9% 218 ML IV SCH (16:30)
[2022-04-04] MEDS: POTASSIUM CHL 20MEQ/100ML 100 ML IV SCH ×2 (17:54→20:00)
[2022-04-04] MEDS ORDERED: TPN PER PHARMACY IV NR ×9 (20:00)
[2022-04-05] VITALS (102 sets, daily range): BP systolic 81–178; BP diastolic 45–133
[2022-04-05] MEDS: ACCU-CHEK COMFORT CURVE STRIP VI SCH ×4 (00:10→19:18)
[2022-04-05] MEDS: InsuLIN REG 1unit/0.01ml Soln (100units/ml) SC SCH ×4 (00:11→19:19)
[2022-04-05 04:28] LABS: Hematocrit 27.1 % (41.0-53.0); Hemoglobin 9.3 g/dL (13.5-17.5); Mean Corpuscular Hemoglobin 31.7 pg (28.0-32.0); Mean Corpuscular Hgb Conc. 34.2 g/dL (32.0-36.0); Mean Corpuscular Volume 92.7 fL (80.0-100.0); Red Blood Cells 2.93 10^6/uL (4.5-5.90); Red Cell Distribution Width 15.1 % (11.8-14.3); White Blood Cell 19.1 10^3/uL (4.4-10.8)
[2022-04-05 04:52] LABS: Potassium 4.2 mmol/L (3.5-5.1)
[2022-04-05 04:59] LABS: Albumin 2.2 g/dL (3.4-5.0); BUN/Creatinine Ratio 60.1; Basophils % (manual) 0 (0.0-2.0); Blast Cells 0; Calcium 7.6 mg/dL (8.5-10.1); Eosinophils % (manual) 0 (0-7); Magnesium 2.4 mg/dL (1.6-2.6); Myelocytes % 0; Phosphorus 4.3 mg/dL (2.5-4.90); Promyelocytes % 0; Reactive Lymphocytes 0
[2022-04-05] MEDS: MEROPENEM 1GM IVPB 100 ML IV SCH ×3 (06:00→23:00)
[2022-04-05] MEDS: SUCRALFATE 1 GM/10 ML ORAL SUSP PO SCH ×4 (06:50→22:59)
[2022-04-05] MEDS: TPN PER PHARMACY IV NR ×9 (09:26)
[2022-04-05] MEDS: PANTOPRAZOLE 40 MG/10 ML VIAL INJ IV SCH ×2 (09:39→22:58)
[2022-04-05] MEDS: FUROSEMIDE 20 MG/2 ML VIAL IV SCH (09:39)
[2022-04-05] MEDS: methylPREDNISolone SOD SUCC 40 MG/ML VL IV SCH ×2 (09:39→22:58)
[2022-04-05 10:37] LABS: Band Neutrophils % (manual) 10; Lymphocytes % (manual) 8 (10.0-50.0); Metamyelocytes % 4; Monocytes % (manual) 7 (0-12)
[2022-04-05] MEDS: AMIODARONE HCL 200 MG TAB PO SCH ×2 (12:36→22:59)
[2022-04-05] MEDS: SODIUM FERR GLUC 62.5MG/5ML 125 MG in SODIUM CHL 0.9% 100 ML IV SCH (13:20)
[2022-04-05] MEDS ORDERED: ETOMIDATE (2MG/ML) 20ML VIAL IV ONE ×2 (14:30→14:45)
[2022-04-05] MEDS ORDERED: ROCURONIUM 10MG/ML 10ML VIAL IV ONE ×2 (14:30→14:45)
[2022-04-05] MEDS ORDERED: ACETYLCYSTEINE 20%(200MG/ML) SOL 4ML ONE (16:14)
[2022-04-05] MEDS ORDERED: EPINEPHrine HCL 1 MG/1 ML AMP ONE (16:17)
[2022-04-05] MEDS ORDERED: LIDOCAINE 2%HCL (LOCAL ANESTH.) INJ 20ML MDV ONE (16:17)
[2022-04-05] MEDS ORDERED: GLYCOPYRROLATE 0.2 MG/ML 1ML VIAL ONE (16:17)
[2022-04-05] MEDS ORDERED: LIDOCAINE HCL 2% TOP JELLY 5ML TOP ONE (16:18)
[2022-04-05] MEDS: fentaNYL Drip 2500mCg/250mlNS 250 ML IV SCH (17:24)
[2022-04-05] MEDS: MIDAZOLAM DRIP 50 mg/50mL 50 ML IV SCH (17:25)
[2022-04-05] MEDS: NOREPINEPHRINE BITARTRATE 32 MG in SODIUM CHL 0.9% 218 ML IV SCH (17:25)
[2022-04-05] MEDS ORDERED: ACETYLCYSTEINE 20%(200MG/ML) SOL 4ML IN SCH (18:00)
[2022-04-05] MEDS: ACETYLCYSTEINE 20%(200MG/ML) SOL 4ML NEB SCH (19:27)
[2022-04-05] MEDS: ALBUTEROL SULF 2.5 MG/0.5ML(0.5%) NEB SOLN NEB SCH (19:27)
[2022-04-05] MEDS ORDERED: TPN PER PHARMACY IV NR ×11 (20:00)
[2022-04-05] MEDS ORDERED: FUROSEMIDE 20 MG/2 ML VIAL IV SCH (22:00)
[2022-04-06] VITALS (100 sets, daily range): BP systolic 96–137; BP diastolic 54–82
[2022-04-06] MEDS: ACCU-CHEK COMFORT CURVE STRIP VI SCH ×4 (00:17→18:40)
[2022-04-06] MEDS: InsuLIN REG 1unit/0.01ml Soln (100units/ml) SC SCH ×4 (00:18→18:41)
[2022-04-06] MEDS: ALBUTEROL SULF 2.5 MG/0.5ML(0.5%) NEB SOLN NEB SCH ×6 (00:38→21:30)
[2022-04-06] MEDS: NOREPINEPHRINE BITARTRATE 32 MG in SODIUM CHL 0.9% 218 ML IV SCH ×2 (02:00→22:00)
[2022-04-06 04:10] LABS: Hemoglobin 9.7 g/dL (13.5-17.5); Mean Corpuscular Hemoglobin 32.8 pg (28.0-32.0); Mean Corpuscular Hgb Conc. 34.6 g/dL (32.0-36.0); Mean Corpuscular Volume 94.8 fL (80.0-100.0); Red Blood Cells 2.96 10^6/uL (4.5-5.90); Red Cell Distribution Width 15.8 % (11.8-14.3)
[2022-04-06 04:24] LABS: Potassium 4.3 mmol/L (3.5-5.1)
[2022-04-06 04:33] LABS: Albumin 2.1 g/dL (3.4-5.0); BUN/Creatinine Ratio 59.6; Calcium 7.3 mg/dL (8.5-10.1); Magnesium 2.4 mg/dL (1.6-2.6); Phosphorus 5.5 mg/dL (2.5-4.90); Pre Albumin 16.9 mg/dL (20.0-40.0); Total Protein 4.6 g/dL (6.4-8.2)
[2022-04-06 05:23] LABS: White Blood Cell 30.8 10^3/uL (4.4-10.8)
[2022-04-06 05:24] LABS: Band Neutrophils % (manual) 0; Basophils % (manual) 0 (0.0-2.0); Blast Cells 0; Eosinophils % (manual) 0 (0-7); Promyelocytes % 0; Reactive Lymphocytes 0
[2022-04-06] MEDS: ACETYLCYSTEINE 20%(200MG/ML) SOL 4ML NEB SCH ×3 (05:53→21:30)
[2022-04-06] MEDS: MEROPENEM 1GM IVPB 100 ML IV SCH ×3 (06:01→22:14)
[2022-04-06] MEDS: SUCRALFATE 1 GM/10 ML ORAL SUSP PO SCH ×4 (06:18→22:15)
[2022-04-06] MEDS: MIDAZOLAM DRIP 50 mg/50mL 50 ML IV SCH ×2 (07:00→22:00)
[2022-04-06 07:50] LABS: Lymphocytes % (manual) 6 (10.0-50.0); Metamyelocytes % 3; Monocytes % (manual) 4 (0-12); Myelocytes % 5
[2022-04-06] MEDS ORDERED: LIDOCAINE 2%HCL (LOCAL ANESTH.) INJ 20ML MDV ONE (08:53)
[2022-04-06] MEDS ORDERED: SODIUM CHLORIDE LOCK 0 ML ONE (08:53)
[2022-04-06] MEDS ORDERED: LIDOCAINE HCL 2% TOP JELLY 5ML TOP ONE (08:54)
[2022-04-06] MEDS ORDERED: EPINEPHrine HCL 1 MG/1 ML AMP ONE (08:54)
[2022-04-06] MEDS: PANTOPRAZOLE 40 MG/10 ML VIAL INJ IV SCH ×2 (09:54→22:14)
[2022-04-06] MEDS: methylPREDNISolone SOD SUCC 40 MG/ML VL IV SCH (09:54)
[2022-04-06] MEDS: AMIODARONE HCL 200 MG TAB PO SCH ×2 (10:00→22:15)
[2022-04-06] MEDS: DIGOXIN (250MCG/ML) 2 ML AMPULE IV SCH (10:00)
[2022-04-06] MEDS: SODIUM FERR GLUC 62.5MG/5ML 125 MG in SODIUM CHL 0.9% 100 ML IV SCH (12:07)
[2022-04-06] MEDS: LINEZOLID 600MG/300ML 300 ML IV SCH (16:24)
[2022-04-06] MEDS ORDERED: TPN PER PHARMACY IV NR ×9 (20:00)
[2022-04-06] MEDS: fentaNYL Drip 2500mCg/250mlNS 250 ML IV SCH (20:00)
[2022-04-06] MEDS: Jevity 1.2 Cal/Fiber 1 Liter GT SCH (22:13)
[2022-04-07] VITALS (107 sets, daily range): BP systolic 87–139; BP diastolic 41–69
[2022-04-07] MEDS: ALBUTEROL SULF 2.5 MG/0.5ML(0.5%) NEB SOLN NEB SCH ×6 (02:15→22:19)
[2022-04-07] MEDS: LINEZOLID 600MG/300ML 300 ML IV SCH ×2 (03:30→15:30)
[2022-04-07 03:56] LABS: Hematocrit 27.1 % (41.0-53.0); Hemoglobin 9.3 g/dL (13.5-17.5); Mean Corpuscular Hemoglobin 32.8 pg (28.0-32.0); Mean Corpuscular Hgb Conc. 34.2 g/dL (32.0-36.0); Mean Corpuscular Volume 95.9 fL (80.0-100.0); Red Blood Cells 2.83 10^6/uL (4.5-5.90); Red Cell Distribution Width 16.8 % (11.8-14.3); White Blood Cell 27.2 10^3/uL (4.4-10.8)
[2022-04-07 04:12] LABS: Band Neutrophils % (manual) 0; Basophils % (manual) 0 (0.0-2.0); Blast Cells 0; Eosinophils % (manual) 0 (0-7); Metamyelocytes % 0; Myelocytes % 0; Promyelocytes % 0; Reactive Lymphocytes 0
[2022-04-07 04:16] LABS: Calcium 7.4 mg/dL (8.5-10.1); Magnesium 2.3 mg/dL (1.6-2.6); Potassium 4.3 mmol/L (3.5-5.1)
[2022-04-07 04:21] LABS: BUN/Creatinine Ratio 63.3; Phosphorus 4.7 mg/dL (2.5-4.90); Total Protein 4.4 g/dL (6.4-8.2)
[2022-04-07] MEDS: MEROPENEM 1GM IVPB 100 ML IV SCH ×3 (06:09→22:00)
[2022-04-07] MEDS: ACCU-CHEK COMFORT CURVE STRIP VI SCH ×4 (06:10→18:00)
[2022-04-07] MEDS: InsuLIN REG 1unit/0.01ml Soln (100units/ml) SC SCH ×4 (06:12→18:00)
[2022-04-07] MEDS: SUCRALFATE 1 GM/10 ML ORAL SUSP PO SCH ×5 (06:14→22:00)
[2022-04-07] MEDS: ACETYLCYSTEINE 20%(200MG/ML) SOL 4ML NEB SCH ×3 (06:17→23:49)
[2022-04-07 06:43] LABS: Lymphocytes % (manual) 6 (10.0-50.0); Monocytes % (manual) 9 (0-12)
[2022-04-07] MEDS: PANTOPRAZOLE 40 MG/10 ML VIAL INJ IV SCH ×2 (09:26→22:00)
[2022-04-07] MEDS: AMIODARONE HCL 200 MG TAB PO SCH ×2 (09:26→22:00)
[2022-04-07] MEDS ORDERED: FUROSEMIDE 20 MG/2 ML VIAL IV ONE (10:15)
[2022-04-07] MEDS: ALBUMIN 25% 50 ML IV SCH ×2 (16:30→23:52)
[2022-04-07] MEDS: FLUCONAZOLE 200MG/100ML 100 ML IV SCH ×2 (17:00→18:00)
[2022-04-07] MEDS: fentaNYL Drip 2500mCg/250mlNS 250 ML IV SCH (20:00)
[2022-04-07] MEDS ORDERED: TPN PER PHARMACY IV NR ×9 (20:00)
[2022-04-07] MEDS: MIDAZOLAM DRIP 50 mg/50mL 50 ML IV SCH (20:00)
[2022-04-07] MEDS: Jevity 1.2 Cal/Fiber 1 Liter GT SCH (20:00)
[2022-04-08] VITALS (86 sets, daily range): BP systolic 69–133; BP diastolic 34–75
[2022-04-08] MEDS: ACCU-CHEK COMFORT CURVE STRIP VI SCH ×2 (01:26)
[2022-04-08] MEDS: ALBUTEROL SULF 2.5 MG/0.5ML(0.5%) NEB SOLN NEB SCH ×6 (02:27→22:05)
[2022-04-08] MEDS: LINEZOLID 600MG/300ML 300 ML IV SCH ×2 (03:30→14:59)
[2022-04-08] MEDS: NOREPINEPHRINE BITARTRATE 32 MG in SODIUM CHL 0.9% 218 ML IV SCH (04:00)
[2022-04-08 04:24] LABS: Basophils # (auto) 0 10 ^3/uL (0-0.2); Basophils % (auto) 0.1 % (0.0-2.0); Eosinophils # (auto) 0.1 10 ^3/uL (0-0.8); Hemoglobin 8.3 g/dL (13.5-17.5); Lymphocytes # (auto) 0.6 10 ^3/uL (0.4-5.4); Mean Corpuscular Hgb Conc. 34.7 g/dL (32.0-36.0); Monocytes # (auto) 0.9 10 ^3/uL (0-1.3); Nucleated Red Blood Cells % 1.2 %; White Blood Cell 10.6 10^3/uL (4.4-10.8)
[2022-04-08 04:27] LABS: Eosinophils % (auto) 0.9 % (0.0-7.0); Hematocrit 23.8 % (41.0-53.0); Lymphocytes % (auto) 5.6 % (10.0-50.0); Mean Corpuscular Hemoglobin 33.7 pg (28.0-32.0); Monocytes % (auto) 8.4 % (0.0-12.0); Red Blood Cells 2.46 10^6/uL (4.5-5.90); Red Cell Distribution Width 19.8 % (11.8-14.3)
[2022-04-08 04:50] LABS: Albumin 1.9 g/dL (3.4-5.0); Calcium 7.2 mg/dL (8.5-10.1); Magnesium 2.1 mg/dL (1.6-2.6); Potassium 4.2 mmol/L (3.5-5.1)
[2022-04-08 04:53] LABS: BUN/Creatinine Ratio 66.7; Bilirubin, Total 0.8 mg/dL (0.2-1.0); Phosphorus 4.1 mg/dL (2.5-4.90); Total Protein 4.1 g/dL (6.4-8.2)
[2022-04-08] MEDS ORDERED: NOREPINEPHRINE 8 MG/250ML KIT 250 ML IV ONE (05:13)
[2022-04-08] MEDS ORDERED: NOREPINEPHRINE BITARTRATE 6 ML IV ONE (05:14)
[2022-04-08] MEDS: InsuLIN REG 1unit/0.01ml Soln (100units/ml) SC SCH ×2 (06:00)
[2022-04-08] MEDS: MEROPENEM 1GM IVPB 100 ML IV SCH ×3 (06:00→22:40)
[2022-04-08] MEDS: SUCRALFATE 1 GM/10 ML ORAL SUSP PO SCH ×4 (06:38→22:00)
[2022-04-08] MEDS: ACETYLCYSTEINE 20%(200MG/ML) SOL 4ML NEB SCH ×3 (06:39→18:24)
[2022-04-08] MEDS: ALBUMIN 25% 50 ML IV SCH (09:14)
[2022-04-08] MEDS: PANTOPRAZOLE 40 MG/10 ML VIAL INJ IV SCH ×2 (09:40→22:00)
[2022-04-08] MEDS: AMIODARONE HCL 200 MG TAB PO SCH ×2 (09:41→22:00)
[2022-04-08] MEDS: DIGOXIN (250MCG/ML) 2 ML AMPULE IV SCH (09:42)
[2022-04-08] MEDS: FLUCONAZOLE 200MG/100ML 100 ML IV SCH ×2 (09:42→13:14)
[2022-04-08] MEDS ORDERED: FUROSEMIDE 20 MG/2 ML VIAL IV ONE (10:00)
[2022-04-08] MEDS ORDERED: FUROSEMIDE 20 MG/2 ML VIAL ONE (10:02)
[2022-04-08] MEDS ORDERED: ACETAMINOPHEN 650 mg PER 20.3 mL UD GT PRN (16:15)
[2022-04-08] MEDS: Jevity 1.2 Cal/Fiber 1 Liter GT SCH (20:00)
[2022-04-08] MEDS ORDERED: DexmedeTOMIDine 4 ML IV ONE (20:07)
[2022-04-09] VITALS (66 sets, daily range): BP systolic 83–142; BP diastolic 12–66
[2022-04-09] MEDS: ALBUTEROL SULF 2.5 MG/0.5ML(0.5%) NEB SOLN NEB SCH ×6 (02:08→22:26)
[2022-04-09] MEDS: LINEZOLID 600MG/300ML 300 ML IV SCH ×2 (03:30→14:43)
[2022-04-09 03:48] LABS: Hematocrit 25.3 % (41.0-53.0); Hemoglobin 8.7 g/dL (13.5-17.5); Mean Corpuscular Hemoglobin 33.6 pg (28.0-32.0); Mean Corpuscular Hgb Conc. 34.4 g/dL (32.0-36.0); Mean Corpuscular Volume 97.7 fL (80.0-100.0); Red Blood Cells 2.59 10^6/uL (4.5-5.90); White Blood Cell 10.6 10^3/uL (4.4-10.8)
[2022-04-09 04:01] LABS: Band Neutrophils % (manual) 0; Basophils % (manual) 0 (0.0-2.0); Red Cell Distribution Width 20.5 % (11.8-14.3)
[2022-04-09 04:02] LABS: Blast Cells 0; Promyelocytes % 0; Reactive Lymphocytes 0
[2022-04-09 04:04] LABS: BUN/Creatinine Ratio 63.8; Calcium 7.7 mg/dL (8.5-10.1); Potassium 4.8 mmol/L (3.5-5.1)
[2022-04-09 04:14] LABS: Eosinophils % (manual) 2 (0-7); Lymphocytes % (manual) 6 (10.0-50.0); Metamyelocytes % 1; Monocytes % (manual) 7 (0-12); Myelocytes % 1
[2022-04-09] MEDS: MEROPENEM 1GM IVPB 100 ML IV SCH ×3 (05:49→22:48)
[2022-04-09] MEDS: SUCRALFATE 1 GM/10 ML ORAL SUSP PO SCH ×4 (05:50→22:49)
[2022-04-09] MEDS: ACETYLCYSTEINE 20%(200MG/ML) SOL 4ML NEB SCH ×3 (06:05→18:48)
[2022-04-09] MEDS: FLUCONAZOLE 200MG/100ML 100 ML IV SCH ×2 (09:12→11:32)
[2022-04-09] MEDS: AMIODARONE HCL 200 MG TAB PO SCH ×2 (09:13→23:05)
[2022-04-09] MEDS: PANTOPRAZOLE 40 MG/10 ML VIAL INJ IV SCH ×2 (09:13→22:50)
[2022-04-09] MEDS: Jevity 1.2 Cal/Fiber 1 Liter GT SCH (19:00)
[2022-04-09] MEDS ORDERED: NOREPINEPHRINE 8 MG/250ML KIT 250 ML IV ONE (20:54)
[2022-04-09] MEDS ORDERED: NOREPINEPHRINE BITARTRATE 6 ML IV ONE (20:55)
[2022-04-09] MEDS ORDERED: ENOXAPARIN SOD 100 MG/1 ML SYRINGE SC SCH (22:00)
[2022-04-09] MEDS: NOREPINEPHRINE BITARTRATE 32 MG in SODIUM CHL 0.9% 218 ML IV SCH (22:54)
[2022-04-10] VITALS (97 sets, daily range): BP systolic 85–138; BP diastolic 15–71
[2022-04-10] MEDS: ALBUTEROL SULF 2.5 MG/0.5ML(0.5%) NEB SOLN NEB SCH ×6 (02:16→23:05)
[2022-04-10 04:30] LABS: Basophils # (auto) 0.1 10 ^3/uL (0-0.2); Eosinophils # (auto) 0.7 10 ^3/uL (0-0.8); Eosinophils % (auto) 7.2 % (0.0-7.0); Hematocrit 26.4 % (41.0-53.0); Lymphocytes # (auto) 0.5 10 ^3/uL (0.4-5.4); Lymphocytes % (auto) 4.8 % (10.0-50.0); Mean Corpuscular Hemoglobin 33.2 pg (28.0-32.0); Mean Corpuscular Hgb Conc. 34.1 g/dL (32.0-36.0); Mean Corpuscular Volume 97.3 fL (80.0-100.0); Monocytes # (auto) 0.7 10 ^3/uL (0-1.3); Monocytes % (auto) 6.9 % (0.0-12.0); Neutrophils # (auto) 7.8 10 ^3/uL (1.6-8.6); Neutrophils % (auto) 80.1 % (37.0-80.0); Nucleated Red Blood Cells % 0.1 %; Red Blood Cells 2.71 10^6/uL (4.5-5.90); White Blood Cell 9.8 10^3/uL (4.4-10.8)
[2022-04-10 04:45] LABS: BUN/Creatinine Ratio 63.7; Calcium 8.1 mg/dL (8.5-10.1)
[2022-04-10 04:46] LABS: Red Cell Distribution Width 20.6 % (11.8-14.3)
[2022-04-10] MEDS: LINEZOLID 600MG/300ML 300 ML IV SCH (05:20)
[2022-04-10] MEDS: MEROPENEM 1GM IVPB 100 ML IV SCH ×3 (06:32→22:18)
[2022-04-10] MEDS: SUCRALFATE 1 GM/10 ML ORAL SUSP PO SCH ×4 (08:05→22:18)
[2022-04-10] MEDS: ACETYLCYSTEINE 20%(200MG/ML) SOL 4ML NEB SCH ×3 (08:56→19:09)
[2022-04-10] MEDS: FLUCONAZOLE 200MG/100ML 100 ML IV SCH ×2 (10:00→12:29)
[2022-04-10] MEDS: PANTOPRAZOLE 40 MG/10 ML VIAL INJ IV SCH ×2 (12:28→22:18)
[2022-04-10] MEDS: AMIODARONE HCL 200 MG TAB PO SCH ×2 (12:29→22:18)
[2022-04-10] MEDS ORDERED: MICAFUNGIN SODIUM 100 MG in SODIUM CHL 0.9% 100 ML IV ONE (14:15)
[2022-04-10] MEDS: NOREPINEPHRINE BITARTRATE 32 MG in SODIUM CHL 0.9% 218 ML IV SCH (16:30)
[2022-04-10 18:49] LABS: INR 1.21 (0.9-1.15)
[2022-04-10] MEDS: HEPARIN DRIP/D5W 100UNITS/ML 250 ML IV SCH (19:36)
[2022-04-11] VITALS (95 sets, daily range): BP systolic 58–165; BP diastolic 30–93
[2022-04-11] MEDS: ALBUTEROL SULF 2.5 MG/0.5ML(0.5%) NEB SOLN NEB SCH ×6 (02:53→22:57)
[2022-04-11] MEDS: HEPARIN DRIP/D5W 100UNITS/ML 250 ML IV SCH ×2 (03:25→16:43)
[2022-04-11 04:47] LABS: Hematocrit 27.6 % (41.0-53.0); Hemoglobin 9.3 g/dL (13.5-17.5); Mean Corpuscular Hemoglobin 33.7 pg (28.0-32.0); Mean Corpuscular Hgb Conc. 33.5 g/dL (32.0-36.0); Mean Corpuscular Volume 100.7 fL (80.0-100.0); Red Blood Cells 2.74 10^6/uL (4.5-5.90); White Blood Cell 7.7 10^3/uL (4.4-10.8)
[2022-04-11 04:48] LABS: Potassium 4.9 mmol/L (3.5-5.1)
[2022-04-11 04:55] LABS: Albumin 1.6 g/dL (3.4-5.0); BUN/Creatinine Ratio 66.9; Bilirubin, Total 0.7 mg/dL (0.2-1.0); Total Protein 4.3 g/dL (6.4-8.2)
[2022-04-11 04:57] LABS: INR 1.25 (0.9-1.15)
[2022-04-11 05:05] LABS: Basophils % (manual) 0 (0.0-2.0); Blast Cells 0; Metamyelocytes % 0; Myelocytes % 0; Promyelocytes % 0; Reactive Lymphocytes 0
[2022-04-11 05:11] LABS: Partial Thromboplastin Time > 139.0 sec (23.6-33.0)
[2022-04-11] MEDS: SUCRALFATE 1 GM/10 ML ORAL SUSP PO SCH ×4 (06:14→21:39)
[2022-04-11] MEDS: MEROPENEM 1GM IVPB 100 ML IV SCH ×3 (06:14→21:39)
[2022-04-11] MEDS: ACETYLCYSTEINE 20%(200MG/ML) SOL 4ML NEB SCH ×3 (07:09→18:27)
[2022-04-11 07:40] LABS: Band Neutrophils % (manual) 4; Eosinophils % (manual) 6 (0-7); Lymphocytes % (manual) 22 (10.0-50.0); Monocytes % (manual) 1 (0-12)
[2022-04-11] MEDS: PANTOPRAZOLE 40 MG/10 ML VIAL INJ IV SCH ×2 (09:53→21:39)
[2022-04-11] MEDS: MICAFUNGIN SODIUM 100 MG in SODIUM CHL 0.9% 100 ML IV SCH (09:53)
[2022-04-11] MEDS: AMIODARONE HCL 200 MG TAB PO SCH ×2 (09:54→21:40)
[2022-04-11] MEDS: DIGOXIN (250MCG/ML) 2 ML AMPULE IV SCH (09:54)
[2022-04-11 14:01] LABS: INR 1.26 (0.9-1.15)
[2022-04-11 14:06] LABS: Partial Thromboplastin Time > 139.0 sec (23.6-33.0)
[2022-04-11] MEDS: NOREPINEPHRINE BITARTRATE 32 MG in SODIUM CHL 0.9% 218 ML IV SCH (16:30)
[2022-04-11] MEDS: fentaNYL Drip 2500mCg/250mlNS 250 ML IV SCH (16:44)
[2022-04-11] MEDS: MIDAZOLAM DRIP 50 mg/50mL 50 ML IV SCH (19:58)
[2022-04-11 21:42] LABS: INR 1.21 (0.9-1.15); Partial Thromboplastin Time 43.8 sec (23.6-33.0)
[2022-04-11] MEDS ORDERED: HEPARIN DRIP/D5W 100UNITS/ML 250 ML IV SCH (22:30)
[2022-04-12] VITALS (96 sets, daily range): BP systolic 99–167; BP diastolic 26–80
[2022-04-12] MEDS: MIDAZOLAM DRIP 50 mg/50mL 50 ML IV SCH ×3 (03:57→21:49)
[2022-04-12] MEDS: ALBUTEROL SULF 2.5 MG/0.5ML(0.5%) NEB SOLN NEB SCH ×6 (04:10→22:19)
[2022-04-12 04:47] LABS: Basophils # (auto) 0.2 10 ^3/uL (0-0.2); Basophils % (auto) 3.2 % (0.0-2.0); Eosinophils # (auto) 0.6 10 ^3/uL (0-0.8); Eosinophils % (auto) 10.3 % (0.0-7.0); Hemoglobin 9.4 g/dL (13.5-17.5); Lymphocytes # (auto) 0.6 10 ^3/uL (0.4-5.4); Lymphocytes % (auto) 10.1 % (10.0-50.0); Mean Corpuscular Hgb Conc. 34.8 g/dL (32.0-36.0); Mean Corpuscular Volume 97.7 fL (80.0-100.0); Monocytes # (auto) 0.6 10 ^3/uL (0-1.3); Monocytes % (auto) 9.2 % (0.0-12.0); Neutrophils # (auto) 4.2 10 ^3/uL (1.6-8.6); Neutrophils % (auto) 67.2 % (37.0-80.0); Nucleated Red Blood Cells % 0.1 %; Red Blood Cells 2.77 10^6/uL (4.5-5.90); Red Cell Distribution Width 19.5 % (11.8-14.3); White Blood Cell 6.2 10^3/uL (4.4-10.8)
[2022-04-12 04:54] LABS: BUN/Creatinine Ratio 59.6; Calcium 8.1 mg/dL (8.5-10.1)
[2022-04-12 05:26] LABS: INR 1.29 (0.9-1.15); Partial Thromboplastin Time 59.4 sec (23.6-33.0)
[2022-04-12] MEDS: fentaNYL Drip 2500mCg/250mlNS 250 ML IV SCH ×2 (05:56→18:37)
[2022-04-12] MEDS: SUCRALFATE 1 GM/10 ML ORAL SUSP PO SCH ×4 (06:02→21:46)
[2022-04-12] MEDS: MEROPENEM 1GM IVPB 100 ML IV SCH ×3 (06:03→21:47)
[2022-04-12] MEDS: ACETYLCYSTEINE 20%(200MG/ML) SOL 4ML NEB SCH ×3 (06:14→18:19)
[2022-04-12] MEDS: PANTOPRAZOLE 40 MG/10 ML VIAL INJ IV SCH ×2 (09:47→21:46)
[2022-04-12] MEDS: MICAFUNGIN SODIUM 100 MG in SODIUM CHL 0.9% 100 ML IV SCH (09:47)
[2022-04-12] MEDS: AMIODARONE HCL 200 MG TAB PO SCH ×2 (09:48→21:47)
[2022-04-12] MEDS ORDERED: DIGOXIN (250MCG/ML) 2 ML AMPULE IV STA (10:50)
[2022-04-12] MEDS ORDERED: HYDROmorphone HCL 2 MG/ML VL/or syr ONE (12:32)
[2022-04-12] MEDS ORDERED: fentaNYL CITRATE 100 MCG/2 ML VL ONE (12:36)
[2022-04-12] MEDS ORDERED: MIDAZOLAM HCL 2MG/2ML 2ml VIAL (1mg/ml) ONE (12:36)
[2022-04-12] MEDS ORDERED: PROPOFOL 10 MG/ML 20 ML IV ONE (12:51)
[2022-04-12] MEDS ORDERED: DexAMETHasone SOD PHOS 10MG/1ML VIAL INJ ONE (12:51)
[2022-04-12] MEDS ORDERED: HYDROmorphone HCL 2 MG/ML VL/or syr IV PRN (14:00)
[2022-04-12] MEDS ORDERED: ePHEDrine SULFATE 50 MG/ML AMP IV PRN (14:00)
[2022-04-12] MEDS ORDERED: ONDANSETRON HCL 4 MG/2 ML VIAL IV PRN (14:00)
[2022-04-12] MEDS ORDERED: hydrALAZINE HCL 20 MG/ML VL IV PRN (14:00)
[2022-04-12] MEDS ORDERED: MIDAZOLAM HCL 2MG/2ML 2ml VIAL (1mg/ml) IV PRN (14:00)
[2022-04-12] MEDS ORDERED: LABETALOL HCL 5 MG/ML 4ML SYRINGE IV PRN (14:00)
[2022-04-12] MEDS ORDERED: MORPHINE SULFATE 4 MG/ML SYR/VIAL IV PRN (14:00)
[2022-04-12] MEDS: NOREPINEPHRINE BITARTRATE 32 MG in SODIUM CHL 0.9% 218 ML IV SCH (16:30)
[2022-04-13] VITALS (104 sets, daily range): BP systolic 88–128; BP diastolic 14–71
[2022-04-13] MEDS: ALBUTEROL SULF 2.5 MG/0.5ML(0.5%) NEB SOLN NEB SCH ×5 (02:18→22:51)
[2022-04-13 04:59] LABS: INR 1.23 (0.9-1.15); Partial Thromboplastin Time 35.9 sec (23.6-33.0)
[2022-04-13 05:01] LABS: Albumin 1.7 g/dL (3.4-5.0)
[2022-04-13 05:06] LABS: Bilirubin, Total 0.7 mg/dL (0.2-1.0); Total Protein 4.6 g/dL (6.4-8.2)
[2022-04-13 05:11] LABS: Basophils # (auto) 0.1 10 ^3/uL (0-0.2); Basophils % (auto) 1.7 % (0.0-2.0); Eosinophils # (auto) 0 10 ^3/uL (0-0.8); Hematocrit 26.4 % (41.0-53.0); Hemoglobin 8.9 g/dL (13.5-17.5); Lymphocytes # (auto) 0.3 10 ^3/uL (0.4-5.4); Lymphocytes % (auto) 3.6 % (10.0-50.0); Mean Corpuscular Hemoglobin 33.8 pg (28.0-32.0); Mean Corpuscular Hgb Conc. 33.7 g/dL (32.0-36.0); Mean Corpuscular Volume 100.2 fL (80.0-100.0); Monocytes # (auto) 0.1 10 ^3/uL (0-1.3); Neutrophils # (auto) 6.8 10 ^3/uL (1.6-8.6); Neutrophils % (auto) 93.7 % (37.0-80.0); Nucleated Red Blood Cells % 0.1 %; Red Blood Cells 2.64 10^6/uL (4.5-5.90); White Blood Cell 7.2 10^3/uL (4.4-10.8)
[2022-04-13] MEDS: MEROPENEM 1GM IVPB 100 ML IV SCH ×3 (06:05→22:06)
[2022-04-13] MEDS: ACETYLCYSTEINE 20%(200MG/ML) SOL 4ML NEB SCH ×2 (06:53→22:51)
[2022-04-13] MEDS: SUCRALFATE 1 GM/10 ML ORAL SUSP PO SCH ×4 (07:00→22:08)
[2022-04-13] MEDS: PANTOPRAZOLE 40 MG/10 ML VIAL INJ IV SCH ×2 (10:27→22:06)
[2022-04-13] MEDS: AMIODARONE HCL 200 MG TAB PO SCH ×2 (10:28→22:10)
[2022-04-13] MEDS: MICAFUNGIN SODIUM 100 MG in SODIUM CHL 0.9% 100 ML IV SCH (10:29)
[2022-04-13] MEDS: DIGOXIN (250MCG/ML) 2 ML AMPULE IV SCH (10:29)
[2022-04-13] MEDS ORDERED: FUROSEMIDE 40 MG/4 ML VIAL IV ONE (14:00)
[2022-04-13] MEDS ORDERED: ALBUMIN 5% 250 ML IV ONE (14:00)
[2022-04-13 14:58] LABS: INR 1.27 (0.9-1.15); Partial Thromboplastin Time 36.5 sec (23.6-33.0)
[2022-04-13] MEDS: HEPARIN DRIP/D5W 100UNITS/ML 250 ML IV SCH ×2 (15:23→19:40)
[2022-04-13] MEDS: MIDAZOLAM DRIP 50 mg/50mL 50 ML IV SCH (16:32)
[2022-04-13] MEDS: NOREPINEPHRINE BITARTRATE 32 MG in SODIUM CHL 0.9% 218 ML IV SCH (16:43)
[2022-04-13 22:22] LABS: INR 1.31 (0.9-1.15); Partial Thromboplastin Time 39.4 sec (23.6-33.0)
[2022-04-14] VITALS (80 sets, daily range): BP systolic 89–140; BP diastolic 18–68
[2022-04-14] MEDS: ALBUTEROL SULF 2.5 MG/0.5ML(0.5%) NEB SOLN NEB SCH ×6 (03:01→22:09)
[2022-04-14] MEDS: MIDAZOLAM DRIP 50 mg/50mL 50 ML IV SCH ×2 (03:05→11:31)
[2022-04-14] MEDS: Jevity 1.2 Cal/Fiber 1 Liter GT SCH (04:38)
[2022-04-14] MEDS: MEROPENEM 1GM IVPB 100 ML IV SCH ×3 (06:28→22:30)
[2022-04-14] MEDS: SUCRALFATE 1 GM/10 ML ORAL SUSP PO SCH ×4 (06:29→22:30)
[2022-04-14 06:38] LABS: Basophils # (auto) 0.1 10 ^3/uL (0-0.2); Basophils % (auto) 0.6 % (0.0-2.0); Eosinophils # (auto) 0 10 ^3/uL (0-0.8); Eosinophils % (auto) 0.1 % (0.0-7.0); Hematocrit 26.4 % (41.0-53.0); Hemoglobin 8.8 g/dL (13.5-17.5); Lymphocytes # (auto) 0.7 10 ^3/uL (0.4-5.4); Lymphocytes % (auto) 5.5 % (10.0-50.0); Mean Corpuscular Hemoglobin 33.2 pg (28.0-32.0); Mean Corpuscular Hgb Conc. 33.3 g/dL (32.0-36.0); Mean Corpuscular Volume 99.8 fL (80.0-100.0); Monocytes # (auto) 0.6 10 ^3/uL (0-1.3); Monocytes % (auto) 4.7 % (0.0-12.0); Neutrophils # (auto) 11.9 10 ^3/uL (1.6-8.6); Neutrophils % (auto) 89.1 % (37.0-80.0); Nucleated Red Blood Cells % 0.1 %; Red Blood Cells 2.64 10^6/uL (4.5-5.90); Red Cell Distribution Width 19.8 % (11.8-14.3); White Blood Cell 13.4 10^3/uL (4.4-10.8)
[2022-04-14 07:00] LABS: BUN/Creatinine Ratio 48.4; Calcium 8.5 mg/dL (8.5-10.1); Potassium 5.2 mmol/L (3.5-5.1)
[2022-04-14 07:04] LABS: INR 1.28 (0.9-1.15)
[2022-04-14 07:32] LABS: Partial Thromboplastin Time 95.8 sec (23.6-33.0)
[2022-04-14] MEDS: ACETYLCYSTEINE 20%(200MG/ML) SOL 4ML NEB SCH ×3 (07:38→22:09)
[2022-04-14] MEDS: PANTOPRAZOLE 40 MG/10 ML VIAL INJ IV SCH ×2 (11:18→22:30)
[2022-04-14] MEDS: MICAFUNGIN SODIUM 100 MG in SODIUM CHL 0.9% 100 ML IV SCH (11:18)
[2022-04-14] MEDS: AMIODARONE HCL 200 MG TAB PO SCH ×2 (11:21→22:30)
[2022-04-14] MEDS: fentaNYL Drip 2500mCg/250mlNS 250 ML IV SCH (11:30)
[2022-04-14] MEDS: SODIUM ZIRCONIUM CYCL 10 GM PAK PO SCH ×2 (14:24→22:30)
[2022-04-14] MEDS: NOREPINEPHRINE BITARTRATE 32 MG in SODIUM CHL 0.9% 218 ML IV SCH (16:30)
[2022-04-14] MEDS: FREE WATER GT SCH ×2 (18:54→23:21)
[2022-04-14] MEDS ORDERED: FUROSEMIDE 20 MG/2 ML VIAL IV ONE (22:30)
[2022-04-15] VITALS (62 sets, daily range): BP systolic 87–122; BP diastolic 27–52
[2022-04-15] MEDS: ALBUMIN 25% 50 ML IV SCH ×3 (01:30→15:19)
[2022-04-15] MEDS: ALBUTEROL SULF 2.5 MG/0.5ML(0.5%) NEB SOLN NEB SCH ×5 (02:17→22:40)
[2022-04-15] MEDS: fentaNYL Drip 2500mCg/250mlNS 250 ML IV SCH ×2 (02:22→15:33)
[2022-04-15 04:42] LABS: Basophils # (auto) 0.1 10 ^3/uL (0-0.2); Eosinophils # (auto) 0 10 ^3/uL (0-0.8); Lymphocytes # (auto) 0.6 10 ^3/uL (0.4-5.4); Neutrophils # (auto) 6.6 10 ^3/uL (1.6-8.6); Nucleated Red Blood Cells % 0.1 %
[2022-04-15 04:47] LABS: Basophils % (auto) 1.7 % (0.0-2.0); Eosinophils % (auto) 0.1 % (0.0-7.0); Hematocrit 21.9 % (41.0-53.0); Hemoglobin 7.5 g/dL (13.5-17.5); Lymphocytes % (auto) 7.7 % (10.0-50.0); Mean Corpuscular Hgb Conc. 34.4 g/dL (32.0-36.0); Mean Corpuscular Volume 98.7 fL (80.0-100.0); Monocytes # (auto) 0.4 10 ^3/uL (0-1.3); Monocytes % (auto) 4.6 % (0.0-12.0); Neutrophils % (auto) 85.9 % (37.0-80.0); Red Blood Cells 2.22 10^6/uL (4.5-5.90); Red Cell Distribution Width 19.2 % (11.8-14.3); White Blood Cell 7.7 10^3/uL (4.4-10.8)
[2022-04-15 04:54] LABS: Albumin 1.9 g/dL (3.4-5.0); Calcium 7.9 mg/dL (8.5-10.1); Potassium 4.5 mmol/L (3.5-5.1)
[2022-04-15 04:57] LABS: BUN/Creatinine Ratio 46.3; Bilirubin, Total 0.5 mg/dL (0.2-1.0); Total Protein 4.6 g/dL (6.4-8.2)
[2022-04-15] MEDS: Jevity 1.2 Cal/Fiber 1 Liter GT SCH (05:12)
[2022-04-15] MEDS: SODIUM ZIRCONIUM CYCL 10 GM PAK PO SCH ×2 (06:03→15:18)
[2022-04-15] MEDS: FREE WATER GT SCH ×2 (06:03→15:08)
[2022-04-15] MEDS: SUCRALFATE 1 GM/10 ML ORAL SUSP PO SCH ×4 (06:04→22:18)
[2022-04-15] MEDS: MEROPENEM 1GM IVPB 100 ML IV SCH ×2 (06:40→17:37)
[2022-04-15 08:08] LABS: Hematocrit 23.7 % (41.0-53.0)
[2022-04-15] MEDS: DIGOXIN (250MCG/ML) 2 ML AMPULE IV SCH (10:00)
[2022-04-15] MEDS: PANTOPRAZOLE 40 MG/10 ML VIAL INJ IV SCH ×2 (10:21→22:18)
[2022-04-15] MEDS: AMIODARONE HCL 200 MG TAB PO SCH ×2 (10:29→21:45)
[2022-04-15] MEDS: ENOXAPARIN SOD 100 MG/1 ML SYRINGE SC SCH (10:29)
[2022-04-15] MEDS: MICAFUNGIN SODIUM 100 MG in SODIUM CHL 0.9% 100 ML IV SCH (10:30)
[2022-04-15] MEDS: ACETYLCYSTEINE 20%(200MG/ML) SOL 4ML NEB SCH ×3 (10:43→22:40)
[2022-04-15] MEDS: MIDAZOLAM DRIP 50 mg/50mL 50 ML IV SCH (11:00)
[2022-04-15] MEDS: NOREPINEPHRINE BITARTRATE 32 MG in SODIUM CHL 0.9% 218 ML IV SCH (16:30)
[2022-04-15 18:33] LABS: Hemoglobin 7.8 g/dL (13.5-17.5)
[2022-04-15 18:35] LABS: Hematocrit 23.2 % (41.0-53.0)
[2022-04-16] VITALS (95 sets, daily range): BP systolic 84–123; BP diastolic 23–56
[2022-04-16] MEDS: MIDAZOLAM DRIP 50 mg/50mL 50 ML IV SCH ×2 (01:26→18:02)
[2022-04-16] MEDS: ALBUTEROL SULF 2.5 MG/0.5ML(0.5%) NEB SOLN NEB SCH ×5 (02:00→22:10)
[2022-04-16] MEDS: NOREPINEPHRINE BITARTRATE 32 MG in SODIUM CHL 0.9% 218 ML IV SCH ×2 (02:39→03:00)
[2022-04-16] MEDS ORDERED: NOREPINEPHRINE BITARTRATE 4 ML IV ONE (02:39)
[2022-04-16] MEDS ORDERED: NOREPINEPHRINE 8 MG/250ML KIT 250 ML IV ONE ×2 (02:39→02:42)
[2022-04-16 04:45] LABS: Basophils # (auto) 0.1 10 ^3/uL (0-0.2); Eosinophils # (auto) 0.2 10 ^3/uL (0-0.8); Hemoglobin 7.5 g/dL (13.5-17.5); Red Cell Distribution Width 19.1 % (11.8-14.3); White Blood Cell 8.2 10^3/uL (4.4-10.8)
[2022-04-16 04:47] LABS: Basophils % (auto) 1.1 % (0.0-2.0); Eosinophils % (auto) 1.9 % (0.0-7.0); Hematocrit 21.9 % (41.0-53.0); Lymphocytes % (auto) 12.5 % (10.0-50.0); Mean Corpuscular Hemoglobin 33.7 pg (28.0-32.0); Mean Corpuscular Hgb Conc. 34.1 g/dL (32.0-36.0); Mean Corpuscular Volume 98.7 fL (80.0-100.0); Monocytes # (auto) 0.5 10 ^3/uL (0-1.3); Neutrophils # (auto) 6.4 10 ^3/uL (1.6-8.6); Neutrophils % (auto) 78.5 % (37.0-80.0); Red Blood Cells 2.21 10^6/uL (4.5-5.90)
[2022-04-16 04:55] LABS: Potassium 4.1 mmol/L (3.5-5.1)
[2022-04-16 05:00] LABS: BUN/Creatinine Ratio 46.2
[2022-04-16 05:03] LABS: Bilirubin, Total 0.7 mg/dL (0.2-1.0); Total Protein 4.5 g/dL (6.4-8.2)
[2022-04-16] MEDS: ACETYLCYSTEINE 20%(200MG/ML) SOL 4ML NEB SCH ×3 (06:00→22:10)
[2022-04-16] MEDS: SUCRALFATE 1 GM/10 ML ORAL SUSP PO SCH ×4 (06:11→21:27)
[2022-04-16] MEDS: fentaNYL Drip 2500mCg/250mlNS 250 ML IV SCH ×2 (06:27→22:30)
[2022-04-16] MEDS: MEROPENEM 1GM IVPB 100 ML IV SCH ×2 (07:30→18:01)
[2022-04-16] MEDS: PANTOPRAZOLE 40 MG/10 ML VIAL INJ IV SCH ×2 (10:41→21:27)
[2022-04-16] MEDS: ENOXAPARIN SOD 100 MG/1 ML SYRINGE SC SCH (10:41)
[2022-04-16] MEDS: AMIODARONE HCL 200 MG TAB PO SCH ×2 (10:43→22:00)
[2022-04-16] MEDS: MICAFUNGIN SODIUM 100 MG in SODIUM CHL 0.9% 100 ML IV SCH (10:53)
[2022-04-16 12:11] LABS: Hematocrit 24.7 % (41.0-53.0)
[2022-04-16 12:13] LABS: Hemoglobin 8.3 g/dL (13.5-17.5)
[2022-04-16 15:03] LABS: Hematocrit 25.4 % (41.0-53.0); Hemoglobin 8.5 g/dL (13.5-17.5)
[2022-04-16 21:53] LABS: Hematocrit 25.5 % (41.0-53.0); Hemoglobin 8.5 g/dL (13.5-17.5)
[2022-04-17] VITALS (107 sets, daily range): BP systolic 86–154; BP diastolic 24–74
[2022-04-17] MEDS: ALBUTEROL SULF 2.5 MG/0.5ML(0.5%) NEB SOLN NEB SCH ×6 (02:40→21:45)
[2022-04-17 04:26] LABS: Basophils # (auto) 0.2 10 ^3/uL (0-0.2); Basophils % (auto) 1.8 % (0.0-2.0); Eosinophils # (auto) 0.7 10 ^3/uL (0-0.8); Eosinophils % (auto) 8.1 % (0.0-7.0); Hematocrit 25.1 % (41.0-53.0); Hemoglobin 8.5 g/dL (13.5-17.5); Lymphocytes # (auto) 1.1 10 ^3/uL (0.4-5.4); Lymphocytes % (auto) 11.6 % (10.0-50.0); Mean Corpuscular Hemoglobin 33.5 pg (28.0-32.0); Mean Corpuscular Volume 98.5 fL (80.0-100.0); Monocytes # (auto) 0.4 10 ^3/uL (0-1.3); Neutrophils # (auto) 6.9 10 ^3/uL (1.6-8.6); Neutrophils % (auto) 74.5 % (37.0-80.0); Red Blood Cells 2.55 10^6/uL (4.5-5.90); Red Cell Distribution Width 19.2 % (11.8-14.3); White Blood Cell 9.2 10^3/uL (4.4-10.8)
[2022-04-17 04:45] LABS: Calcium 7.9 mg/dL (8.5-10.1); Potassium 4.2 mmol/L (3.5-5.1)
[2022-04-17 04:50] LABS: Albumin 1.9 g/dL (3.4-5.0); BUN/Creatinine Ratio 46.3; Bilirubin, Total 0.7 mg/dL (0.2-1.0); Total Protein 4.6 g/dL (6.4-8.2)
[2022-04-17] MEDS: ACETYLCYSTEINE 20%(200MG/ML) SOL 4ML NEB SCH ×3 (06:04→21:45)
[2022-04-17] MEDS: SUCRALFATE 1 GM/10 ML ORAL SUSP PO SCH ×4 (06:12→21:54)
[2022-04-17] MEDS: MEROPENEM 1GM IVPB 100 ML IV SCH ×2 (06:14→17:42)
[2022-04-17] MEDS: MIDAZOLAM DRIP 50 mg/50mL 50 ML IV SCH ×2 (07:25→22:02)
[2022-04-17] MEDS: ENOXAPARIN SOD 100 MG/1 ML SYRINGE SC SCH (09:37)
[2022-04-17] MEDS: PANTOPRAZOLE 40 MG/10 ML VIAL INJ IV SCH ×2 (09:37→21:54)
[2022-04-17] MEDS: AMIODARONE HCL 200 MG TAB PO SCH ×2 (09:38→21:54)
[2022-04-17] MEDS: MICAFUNGIN SODIUM 100 MG in SODIUM CHL 0.9% 100 ML IV SCH (09:39)
[2022-04-17] MEDS: fentaNYL Drip 2500mCg/250mlNS 250 ML IV SCH (11:27)
[2022-04-17] MEDS: NOREPINEPHRINE BITARTRATE 32 MG in SODIUM CHL 0.9% 218 ML IV SCH (15:20)
[2022-04-17] MEDS: Jevity 1.2 Cal/Fiber 1 Liter GT SCH (15:20)
[2022-04-17] MEDS ORDERED: FUROSEMIDE 40 MG/4 ML VIAL IV ONE (17:45)
[2022-04-18] VITALS (99 sets, daily range): BP systolic 85–135; BP diastolic 24–72
[2022-04-18] MEDS: ALBUTEROL SULF 2.5 MG/0.5ML(0.5%) NEB SOLN NEB SCH ×6 (02:33→22:12)
[2022-04-18 04:05] LABS: Basophils # (auto) 0.1 10 ^3/uL (0-0.2); Basophils % (auto) 1.4 % (0.0-2.0); Eosinophils # (auto) 0.8 10 ^3/uL (0-0.8); Eosinophils % (auto) 9.4 % (0.0-7.0); Hematocrit 26.8 % (41.0-53.0); Hemoglobin 8.9 g/dL (13.5-17.5); Lymphocytes # (auto) 1.1 10 ^3/uL (0.4-5.4); Lymphocytes % (auto) 11.9 % (10.0-50.0); Mean Corpuscular Hemoglobin 33.2 pg (28.0-32.0); Mean Corpuscular Hgb Conc. 33.3 g/dL (32.0-36.0); Mean Corpuscular Volume 99.5 fL (80.0-100.0); Monocytes # (auto) 0.4 10 ^3/uL (0-1.3); Monocytes % (auto) 4.3 % (0.0-12.0); Neutrophils # (auto) 6.6 10 ^3/uL (1.6-8.6); Nucleated Red Blood Cells % 0.1 %; Red Blood Cells 2.69 10^6/uL (4.5-5.90); Red Cell Distribution Width 18.5 % (11.8-14.3)
[2022-04-18 04:22] LABS: Calcium 7.7 mg/dL (8.5-10.1); Potassium 4.3 mmol/L (3.5-5.1)
[2022-04-18 04:25] LABS: BUN/Creatinine Ratio 40.2
[2022-04-18] MEDS: MIDAZOLAM DRIP 50 mg/50mL 50 ML IV SCH (05:39)
[2022-04-18] MEDS: MEROPENEM 1GM IVPB 100 ML IV SCH ×2 (05:40→17:29)
[2022-04-18] MEDS: ACETYLCYSTEINE 20%(200MG/ML) SOL 4ML NEB SCH ×3 (05:54→22:12)
[2022-04-18] MEDS: SUCRALFATE 1 GM/10 ML ORAL SUSP PO SCH ×4 (06:57→21:53)
[2022-04-18] MEDS: AMIODARONE HCL 200 MG TAB PO SCH ×2 (10:25→21:53)
[2022-04-18] MEDS: PANTOPRAZOLE 40 MG/10 ML VIAL INJ IV SCH ×2 (10:25→21:52)
[2022-04-18] MEDS: fentaNYL Drip 2500mCg/250mlNS 250 ML IV SCH (10:26)
[2022-04-18] MEDS: DIGOXIN (250MCG/ML) 2 ML AMPULE IV SCH (10:26)
[2022-04-18] MEDS: ENOXAPARIN SOD 100 MG/1 ML SYRINGE SC SCH (10:26)
[2022-04-18] MEDS: NOREPINEPHRINE BITARTRATE 32 MG in SODIUM CHL 0.9% 218 ML IV SCH (10:27)
[2022-04-18] MEDS: MICAFUNGIN SODIUM 100 MG in SODIUM CHL 0.9% 100 ML IV SCH (11:33)
[2022-04-18] MEDS: Jevity 1.2 Cal/Fiber 1 Liter GT SCH (17:29)
[2022-04-19] VITALS (106 sets, daily range): BP systolic 83–146; BP diastolic 16–57
[2022-04-19] MEDS: ALBUTEROL SULF 2.5 MG/0.5ML(0.5%) NEB SOLN NEB SCH ×6 (02:29→22:20)
[2022-04-19 03:54] LABS: BUN/Creatinine Ratio 37.6; Calcium 7.5 mg/dL (8.5-10.1); Potassium 4.5 mmol/L (3.5-5.1)
[2022-04-19] MEDS: ACETYLCYSTEINE 20%(200MG/ML) SOL 4ML NEB SCH ×3 (05:33→22:20)
[2022-04-19] MEDS: MEROPENEM 1GM IVPB 100 ML IV SCH ×2 (05:44→17:22)
[2022-04-19] MEDS: SUCRALFATE 1 GM/10 ML ORAL SUSP PO SCH ×4 (06:49→21:59)
[2022-04-19] MEDS: PANTOPRAZOLE 40 MG/10 ML VIAL INJ IV SCH ×2 (09:14→21:59)
[2022-04-19] MEDS: ENOXAPARIN SOD 100 MG/1 ML SYRINGE SC SCH (09:14)
[2022-04-19] MEDS: AMIODARONE HCL 200 MG TAB PO SCH ×2 (09:15→22:00)
[2022-04-19] MEDS: MICAFUNGIN SODIUM 100 MG in SODIUM CHL 0.9% 100 ML IV SCH (09:15)
[2022-04-19 10:59] LABS: INR 1.36 (0.9-1.15); Partial Thromboplastin Time 49.5 sec (23.6-33.0)
[2022-04-19] MEDS: fentaNYL Drip 2500mCg/250mlNS 250 ML IV SCH ×2 (13:45→17:29)
[2022-04-19] MEDS: MIDAZOLAM DRIP 50 mg/50mL 50 ML IV SCH (13:45)
[2022-04-19] MEDS: NOREPINEPHRINE BITARTRATE 32 MG in SODIUM CHL 0.9% 218 ML IV SCH (16:30)
[2022-04-20] VITALS (104 sets, daily range): BP systolic 95–156; BP diastolic 17–59
[2022-04-20] MEDS: ALBUTEROL SULF 2.5 MG/0.5ML(0.5%) NEB SOLN NEB SCH ×6 (02:18→22:08)
[2022-04-20 04:10] LABS: Basophils # (auto) 0.1 10 ^3/uL (0-0.2); Basophils % (auto) 0.7 % (0.0-2.0); Eosinophils % (auto) 10.7 % (0.0-7.0); Hematocrit 25.2 % (41.0-53.0); Hemoglobin 8.6 g/dL (13.5-17.5); Lymphocytes % (auto) 10.7 % (10.0-50.0); Mean Corpuscular Hemoglobin 33.5 pg (28.0-32.0); Mean Corpuscular Volume 98.4 fL (80.0-100.0); Monocytes # (auto) 0.5 10 ^3/uL (0-1.3); Neutrophils % (auto) 72.9 % (37.0-80.0); Red Blood Cells 2.56 10^6/uL (4.5-5.90); Red Cell Distribution Width 17.8 % (11.8-14.3); White Blood Cell 9.6 10^3/uL (4.4-10.8)
[2022-04-20 04:31] LABS: BUN/Creatinine Ratio 41.3; Calcium 7.8 mg/dL (8.5-10.1); Potassium 4.6 mmol/L (3.5-5.1)
[2022-04-20] MEDS: ACETYLCYSTEINE 20%(200MG/ML) SOL 4ML NEB SCH ×3 (05:59→22:08)
[2022-04-20] MEDS: MEROPENEM 1GM IVPB 100 ML IV SCH ×2 (06:30→18:13)
[2022-04-20] MEDS: SUCRALFATE 1 GM/10 ML ORAL SUSP PO SCH ×4 (06:30→22:00)
[2022-04-20] MEDS: MICAFUNGIN SODIUM 100 MG in SODIUM CHL 0.9% 100 ML IV SCH (09:07)
[2022-04-20] MEDS: PANTOPRAZOLE 40 MG/10 ML VIAL INJ IV SCH ×2 (09:07→22:44)
[2022-04-20] MEDS: AMIODARONE HCL 200 MG TAB PO SCH ×2 (09:08→22:00)
[2022-04-20] MEDS: DIGOXIN 0.125 MG TAB PO SCH (09:08)
[2022-04-20] MEDS: FREE WATER GT SCH ×4 (09:42→22:00)
[2022-04-20] MEDS: D5W 5% 1,000 ML IV SCH ×2 (11:51→22:45)
[2022-04-20] MEDS: MIDAZOLAM DRIP 50 mg/50mL 50 ML IV SCH (13:17)
[2022-04-20] MEDS: NOREPINEPHRINE BITARTRATE 32 MG in SODIUM CHL 0.9% 218 ML IV SCH (16:30)
[2022-04-21] VITALS (104 sets, daily range): BP systolic 76–153; BP diastolic 15–70
[2022-04-21] MEDS: fentaNYL Drip 2500mCg/250mlNS 250 ML IV SCH (01:00)
[2022-04-21] MEDS: FREE WATER GT SCH ×3 (02:00→10:04)
[2022-04-21] MEDS: ALBUTEROL SULF 2.5 MG/0.5ML(0.5%) NEB SOLN NEB SCH ×6 (02:03→22:08)
[2022-04-21 04:30] LABS: Hematocrit 24.6 % (41.0-53.0); Hemoglobin 8.1 g/dL (13.5-17.5); Mean Corpuscular Hemoglobin 32.7 pg (28.0-32.0); Mean Corpuscular Hgb Conc. 33.1 g/dL (32.0-36.0); Mean Corpuscular Volume 98.6 fL (80.0-100.0); Red Blood Cells 2.49 10^6/uL (4.5-5.90); Red Cell Distribution Width 17.6 % (11.8-14.3)
[2022-04-21] MEDS: MIDAZOLAM DRIP 50 mg/50mL 50 ML IV SCH (04:30)
[2022-04-21 04:37] LABS: Band Neutrophils % (manual) 0; Basophils % (manual) 0 (0.0-2.0); Blast Cells 0; Metamyelocytes % 0; Myelocytes % 0; Promyelocytes % 0; Reactive Lymphocytes 0
[2022-04-21 04:47] LABS: BUN/Creatinine Ratio 37.6; Potassium 4.2 mmol/L (3.5-5.1)
[2022-04-21] MEDS: MEROPENEM 1GM IVPB 100 ML IV SCH ×2 (06:04→17:26)
[2022-04-21] MEDS: ACETYLCYSTEINE 20%(200MG/ML) SOL 4ML NEB SCH ×3 (06:21→22:08)
[2022-04-21] MEDS: NOREPINEPHRINE BITARTRATE 32 MG in SODIUM CHL 0.9% 218 ML IV SCH (06:24)
[2022-04-21] MEDS: SUCRALFATE 1 GM/10 ML ORAL SUSP PO SCH ×4 (06:50→21:13)
[2022-04-21 06:59] LABS: Eosinophils % (manual) 15 (0-7); Lymphocytes % (manual) 17 (10.0-50.0); Monocytes % (manual) 5 (0-12)
[2022-04-21] MEDS: D5W 5% 1,000 ML IV SCH ×3 (07:15→15:24)
[2022-04-21] MEDS: MICAFUNGIN SODIUM 100 MG in SODIUM CHL 0.9% 100 ML IV SCH (10:07)
[2022-04-21] MEDS: PANTOPRAZOLE 40 MG/10 ML VIAL INJ IV SCH ×2 (10:08→21:14)
[2022-04-21] MEDS: AMIODARONE HCL 200 MG TAB PO SCH ×2 (10:09→21:14)
[2022-04-21] MEDS ORDERED: HYDROCORTISONE SOD SUCC 100 MG/2ML INJ VIAL IV ONE (15:15)
[2022-04-21] MEDS: HYDROCORTISONE SOD SUCC 100 MG/2ML INJ VIAL IV SCH (21:14)
[2022-04-22] VITALS (106 sets, daily range): BP systolic 86–130; BP diastolic 24–86
[2022-04-22] MEDS: ALBUTEROL SULF 2.5 MG/0.5ML(0.5%) NEB SOLN NEB SCH ×6 (02:08→22:47)
[2022-04-22 04:07] LABS: Basophils # (auto) 0.1 10 ^3/uL (0-0.2); Basophils % (auto) 1.6 % (0.0-2.0); Eosinophils # (auto) 0 10 ^3/uL (0-0.8); Eosinophils % (auto) 0.1 % (0.0-7.0); Hematocrit 24.2 % (41.0-53.0); Hemoglobin 8.2 g/dL (13.5-17.5); Lymphocytes # (auto) 0.3 10 ^3/uL (0.4-5.4); Lymphocytes % (auto) 4.6 % (10.0-50.0); Mean Corpuscular Hemoglobin 32.6 pg (28.0-32.0); Mean Corpuscular Hgb Conc. 33.9 g/dL (32.0-36.0); Mean Corpuscular Volume 96.1 fL (80.0-100.0); Monocytes # (auto) 0.1 10 ^3/uL (0-1.3); Monocytes % (auto) 1.8 % (0.0-12.0); Neutrophils % (auto) 91.9 % (37.0-80.0); Nucleated Red Blood Cells % 0.1 %; Red Blood Cells 2.52 10^6/uL (4.5-5.90); Red Cell Distribution Width 17.1 % (11.8-14.3); White Blood Cell 5.5 10^3/uL (4.4-10.8)
[2022-04-22 04:21] LABS: Potassium 4.6 mmol/L (3.5-5.1)
[2022-04-22 04:26] LABS: BUN/Creatinine Ratio 37.5; Calcium 7.9 mg/dL (8.5-10.1)
[2022-04-22] MEDS: MEROPENEM 1GM IVPB 100 ML IV SCH ×2 (06:08→17:55)
[2022-04-22] MEDS: ACETYLCYSTEINE 20%(200MG/ML) SOL 4ML NEB SCH ×3 (06:12→22:47)
[2022-04-22] MEDS: SUCRALFATE 1 GM/10 ML ORAL SUSP PO SCH ×4 (07:17→22:00)
[2022-04-22] MEDS: DIGOXIN 0.125 MG TAB PO SCH ×2 (10:00→10:02)
[2022-04-22] MEDS: AMIODARONE HCL 200 MG TAB PO SCH ×3 (10:00→22:07)
[2022-04-22] MEDS: PANTOPRAZOLE 40 MG/10 ML VIAL INJ IV SCH ×2 (10:02→22:02)
[2022-04-22] MEDS: MICAFUNGIN SODIUM 100 MG in SODIUM CHL 0.9% 100 ML IV SCH (10:02)
[2022-04-22] MEDS: HYDROCORTISONE SOD SUCC 100 MG/2ML INJ VIAL IV SCH ×2 (10:02→22:02)
[2022-04-22] MEDS: ENOXAPARIN SOD 100 MG/1 ML SYRINGE SC SCH (10:03)
[2022-04-22] MEDS: fentaNYL Drip 2500mCg/250mlNS 250 ML IV SCH (10:04)
[2022-04-22] MEDS: MIDAZOLAM DRIP 50 mg/50mL 50 ML IV SCH (13:45)
[2022-04-22] MEDS: D5W 5% 1,000 ML IV SCH (14:41)
[2022-04-22] MEDS: NOREPINEPHRINE BITARTRATE 32 MG in SODIUM CHL 0.9% 218 ML IV SCH (16:30)
[2022-04-22] MEDS: METOCLOPRAMIDE HCL 5MG/ml INJ 2ml VIAL IV SCH (22:02)
[2022-04-23] VITALS (97 sets, daily range): BP systolic 97–139; BP diastolic 32–78
[2022-04-23] MEDS: ALBUTEROL SULF 2.5 MG/0.5ML(0.5%) NEB SOLN NEB SCH ×6 (02:28→22:41)
[2022-04-23 05:09] LABS: Albumin 1.7 g/dL (3.4-5.0); Calcium 8.3 mg/dL (8.5-10.1); Potassium 4.4 mmol/L (3.5-5.1)
[2022-04-23 05:15] LABS: BUN/Creatinine Ratio 34.9; Bilirubin, Total 0.5 mg/dL (0.2-1.0)
[2022-04-23] MEDS: ACETYLCYSTEINE 20%(200MG/ML) SOL 4ML NEB SCH ×3 (05:56→18:21)
[2022-04-23] MEDS: MEROPENEM 1GM IVPB 100 ML IV SCH ×2 (06:21→17:39)
[2022-04-23] MEDS: SUCRALFATE 1 GM/10 ML ORAL SUSP PO SCH ×4 (06:56→21:47)
[2022-04-23] MEDS: D5W 5% 1,000 ML IV SCH (07:15)
[2022-04-23] MEDS: MICAFUNGIN SODIUM 100 MG in SODIUM CHL 0.9% 100 ML IV SCH (11:04)
[2022-04-23] MEDS: HYDROCORTISONE SOD SUCC 100 MG/2ML INJ VIAL IV SCH ×2 (11:04→21:48)
[2022-04-23] MEDS: METOCLOPRAMIDE HCL 5MG/ml INJ 2ml VIAL IV SCH ×2 (11:04→21:47)
[2022-04-23] MEDS: AMIODARONE HCL 200 MG TAB PO SCH ×2 (11:05→21:49)
[2022-04-23] MEDS: ENOXAPARIN SOD 100 MG/1 ML SYRINGE SC SCH (11:05)
[2022-04-23] MEDS: PANTOPRAZOLE 40 MG/10 ML VIAL INJ IV SCH ×2 (11:07→21:47)
[2022-04-23] MEDS: MIDAZOLAM DRIP 50 mg/50mL 50 ML IV SCH (13:45)
[2022-04-23] MEDS: fentaNYL Drip 2500mCg/250mlNS 250 ML IV SCH ×2 (13:45→16:39)
[2022-04-23] MEDS: NOREPINEPHRINE BITARTRATE 32 MG in SODIUM CHL 0.9% 218 ML IV SCH (16:30)
[2022-04-23] MEDS: Jevity 1.2 Cal/Fiber 1 Liter GT SCH (22:24)
[2022-04-24] VITALS (103 sets, daily range): BP systolic 94–175; BP diastolic 21–79
[2022-04-24] MEDS: ALBUTEROL SULF 2.5 MG/0.5ML(0.5%) NEB SOLN NEB SCH ×6 (02:04→22:49)
[2022-04-24 04:42] LABS: Basophils # (auto) 0 10 ^3/uL (0-0.2); Basophils % (auto) 0.1 % (0.0-2.0); Eosinophils # (auto) 0 10 ^3/uL (0-0.8); Eosinophils % (auto) 0.6 % (0.0-7.0); Hematocrit 22.5 % (41.0-53.0); Hemoglobin 7.7 g/dL (13.5-17.5); Lymphocytes # (auto) 0.6 10 ^3/uL (0.4-5.4); Lymphocytes % (auto) 8.2 % (10.0-50.0); Mean Corpuscular Hemoglobin 33.1 pg (28.0-32.0); Mean Corpuscular Hgb Conc. 34.1 g/dL (32.0-36.0); Mean Corpuscular Volume 96.9 fL (80.0-100.0); Monocytes # (auto) 0.3 10 ^3/uL (0-1.3); Monocytes % (auto) 4.6 % (0.0-12.0); Neutrophils # (auto) 5.8 10 ^3/uL (1.6-8.6); Neutrophils % (auto) 86.5 % (37.0-80.0); Nucleated Red Blood Cells % 0.1 %; Red Blood Cells 2.32 10^6/uL (4.5-5.90); Red Cell Distribution Width 16.8 % (11.8-14.3); White Blood Cell 6.7 10^3/uL (4.4-10.8)
[2022-04-24 04:53] LABS: Potassium 4.1 mmol/L (3.5-5.1)
[2022-04-24 04:56] LABS: Albumin 1.8 g/dL (3.4-5.0); BUN/Creatinine Ratio 31.6
[2022-04-24 04:59] LABS: Bilirubin, Total 0.5 mg/dL (0.2-1.0); Total Protein 4.9 g/dL (6.4-8.2)
[2022-04-24] MEDS: D5W 5% 1,000 ML IV SCH (05:48)
[2022-04-24] MEDS: MEROPENEM 1GM IVPB 100 ML IV SCH ×2 (05:48→17:21)
[2022-04-24] MEDS: SUCRALFATE 1 GM/10 ML ORAL SUSP PO SCH ×4 (06:02→22:28)
[2022-04-24] MEDS: ACETYLCYSTEINE 20%(200MG/ML) SOL 4ML NEB SCH ×3 (06:17→18:52)
[2022-04-24] MEDS: ENOXAPARIN SOD 100 MG/1 ML SYRINGE SC SCH (10:12)
[2022-04-24] MEDS: HYDROCORTISONE SOD SUCC 100 MG/2ML INJ VIAL IV SCH ×2 (10:13→22:27)
[2022-04-24] MEDS: DIGOXIN 0.125 MG TAB PO SCH (10:14)
[2022-04-24] MEDS: METOCLOPRAMIDE HCL 5MG/ml INJ 2ml VIAL IV SCH ×2 (10:16→22:28)
[2022-04-24] MEDS: AMIODARONE HCL 200 MG TAB PO SCH ×2 (10:16→22:29)
[2022-04-24] MEDS: PANTOPRAZOLE 40 MG/10 ML VIAL INJ IV SCH ×2 (10:16→22:28)
[2022-04-24] MEDS: MICAFUNGIN SODIUM 100 MG in SODIUM CHL 0.9% 100 ML IV SCH (10:17)
[2022-04-24] MEDS: MIDAZOLAM DRIP 50 mg/50mL 50 ML IV SCH (13:45)
[2022-04-24] MEDS: NOREPINEPHRINE BITARTRATE 32 MG in SODIUM CHL 0.9% 218 ML IV SCH (16:30)
[2022-04-24] MEDS: fentaNYL Drip 2500mCg/250mlNS 250 ML IV SCH (22:34)
[2022-04-24] MEDS: Jevity 1.2 Cal/Fiber 1 Liter GT SCH (22:57)
[2022-04-25] VITALS (99 sets, daily range): BP systolic 102–180; BP diastolic 20–88
[2022-04-25] MEDS: ALBUTEROL SULF 2.5 MG/0.5ML(0.5%) NEB SOLN NEB SCH ×6 (02:00→22:12)
[2022-04-25 04:47] LABS: Basophils # (auto) 0 10 ^3/uL (0-0.2); Eosinophils # (auto) 0 10 ^3/uL (0-0.8); Lymphocytes # (auto) 0.6 10 ^3/uL (0.4-5.4); Neutrophils # (auto) 4.5 10 ^3/uL (1.6-8.6); White Blood Cell 5.6 10^3/uL (4.4-10.8)
[2022-04-25 04:49] LABS: Basophils % (auto) 0.1 % (0.0-2.0); Eosinophils % (auto) 0.2 % (0.0-7.0); Hematocrit 21.7 % (41.0-53.0); Hemoglobin 7.5 g/dL (13.5-17.5); Lymphocytes % (auto) 10.7 % (10.0-50.0); Mean Corpuscular Hemoglobin 32.8 pg (28.0-32.0); Mean Corpuscular Hgb Conc. 34.3 g/dL (32.0-36.0); Mean Corpuscular Volume 95.5 fL (80.0-100.0); Monocytes # (auto) 0.5 10 ^3/uL (0-1.3); Monocytes % (auto) 8.5 % (0.0-12.0); Neutrophils % (auto) 80.5 % (37.0-80.0); Nucleated Red Blood Cells % 0.2 %; Red Blood Cells 2.27 10^6/uL (4.5-5.90); Red Cell Distribution Width 16.7 % (11.8-14.3)
[2022-04-25 05:09] LABS: BUN/Creatinine Ratio 30.8; Calcium 7.9 mg/dL (8.5-10.1); Potassium 4.1 mmol/L (3.5-5.1)
[2022-04-25] MEDS: MEROPENEM 1GM IVPB 100 ML IV SCH ×2 (05:23→17:11)
[2022-04-25] MEDS: SUCRALFATE 1 GM/10 ML ORAL SUSP PO SCH ×4 (05:23→22:36)
[2022-04-25] MEDS: ACETYLCYSTEINE 20%(200MG/ML) SOL 4ML NEB SCH ×3 (06:08→18:33)
[2022-04-25] MEDS: METOCLOPRAMIDE HCL 5MG/ml INJ 2ml VIAL IV SCH ×2 (09:59→22:35)
[2022-04-25] MEDS: PANTOPRAZOLE 40 MG/10 ML VIAL INJ IV SCH ×2 (09:59→22:35)
[2022-04-25] MEDS: MICAFUNGIN SODIUM 100 MG in SODIUM CHL 0.9% 100 ML IV SCH (09:59)
[2022-04-25] MEDS: ENOXAPARIN SOD 100 MG/1 ML SYRINGE SC SCH (10:00)
[2022-04-25] MEDS: HYDROCORTISONE SOD SUCC 100 MG/2ML INJ VIAL IV SCH ×2 (10:00→22:35)
[2022-04-25] MEDS: AMIODARONE HCL 200 MG TAB PO SCH ×2 (10:01→22:36)
[2022-04-25] MEDS: MIDAZOLAM DRIP 50 mg/50mL 50 ML IV SCH (13:45)
[2022-04-25] MEDS ORDERED: LABETALOL HCL 5 MG/ML 4ML SYRINGE IV PRN (14:30)
[2022-04-25] MEDS: NOREPINEPHRINE BITARTRATE 32 MG in SODIUM CHL 0.9% 218 ML IV SCH (16:30)
[2022-04-25] MEDS: fentaNYL Drip 2500mCg/250mlNS 250 ML IV SCH (23:41)
[2022-04-26] VITALS (107 sets, daily range): BP systolic 92–170; BP diastolic 29–96
[2022-04-26] MEDS: ALBUTEROL SULF 2.5 MG/0.5ML(0.5%) NEB SOLN NEB SCH ×5 (02:18→22:40)
[2022-04-26 04:30] LABS: Eosinophils # (auto) 0 10 ^3/uL (0-0.8); Eosinophils % (auto) 0.3 % (0.0-7.0); Lymphocytes # (auto) 0.6 10 ^3/uL (0.4-5.4); Mean Corpuscular Hgb Conc. 34.1 g/dL (32.0-36.0); Monocytes # (auto) 0.5 10 ^3/uL (0-1.3); Red Blood Cells 2.61 10^6/uL (4.5-5.90)
[2022-04-26 04:33] LABS: Basophils # (auto) 0.2 10 ^3/uL (0-0.2); Basophils % (auto) 3.9 % (0.0-2.0); Hematocrit 24.9 % (41.0-53.0); Hemoglobin 8.5 g/dL (13.5-17.5); Lymphocytes % (auto) 10.1 % (10.0-50.0); Mean Corpuscular Hemoglobin 32.5 pg (28.0-32.0); Mean Corpuscular Volume 95.4 fL (80.0-100.0); Monocytes % (auto) 8.6 % (0.0-12.0); Neutrophils # (auto) 4.5 10 ^3/uL (1.6-8.6); Neutrophils % (auto) 77.1 % (37.0-80.0); Nucleated Red Blood Cells % 0.2 %; Red Cell Distribution Width 16.5 % (11.8-14.3); White Blood Cell 5.8 10^3/uL (4.4-10.8)
[2022-04-26 04:52] LABS: Potassium 4.1 mmol/L (3.5-5.1)
[2022-04-26 04:59] LABS: BUN/Creatinine Ratio 31.4; Calcium 8.6 mg/dL (8.5-10.1)
[2022-04-26] MEDS: MEROPENEM 1GM IVPB 100 ML IV SCH ×2 (05:59→17:28)
[2022-04-26] MEDS: SUCRALFATE 1 GM/10 ML ORAL SUSP PO SCH ×4 (05:59→21:25)
[2022-04-26] MEDS: ACETYLCYSTEINE 20%(200MG/ML) SOL 4ML NEB SCH ×3 (06:40→22:40)
[2022-04-26] MEDS: FLUCONAZOLE 200MG/100ML 100 ML IV SCH (09:59)
[2022-04-26] MEDS: METOCLOPRAMIDE HCL 5MG/ml INJ 2ml VIAL IV SCH ×2 (09:59→21:27)
[2022-04-26] MEDS: HYDROCORTISONE SOD SUCC 100 MG/2ML INJ VIAL IV SCH ×2 (09:59→21:26)
[2022-04-26] MEDS: PANTOPRAZOLE 40 MG/10 ML VIAL INJ IV SCH (09:59)
[2022-04-26] MEDS: ENOXAPARIN SOD 100 MG/1 ML SYRINGE SC SCH (09:59)
[2022-04-26] MEDS: DIGOXIN 0.125 MG TAB PO SCH (10:00)
[2022-04-26] MEDS: AMIODARONE HCL 200 MG TAB PO SCH ×2 (10:00→21:28)
[2022-04-26] MEDS: MIDAZOLAM DRIP 50 mg/50mL 50 ML IV SCH (13:45)
[2022-04-26] MEDS: NOREPINEPHRINE BITARTRATE 32 MG in SODIUM CHL 0.9% 218 ML IV SCH (16:30)
[2022-04-26] MEDS: PANTOPRAZOLE 40 MG TAB PO SCH (21:28)
[2022-04-26] MEDS: fentaNYL Drip 2500mCg/250mlNS 250 ML IV SCH (23:30)
[2022-04-27] VITALS (104 sets, daily range): BP systolic 98–168; BP diastolic 27–105
[2022-04-27] MEDS: ALBUTEROL SULF 2.5 MG/0.5ML(0.5%) NEB SOLN NEB SCH ×5 (02:16→22:17)
[2022-04-27] MEDS: MEROPENEM 1GM IVPB 100 ML IV SCH (05:02)
[2022-04-27] MEDS: SUCRALFATE 1 GM/10 ML ORAL SUSP PO SCH ×4 (06:08→21:00)
[2022-04-27] MEDS: ENOXAPARIN SOD 100 MG/1 ML SYRINGE SC SCH (09:25)
[2022-04-27] MEDS: HYDROCORTISONE SOD SUCC 100 MG/2ML INJ VIAL IV SCH ×2 (09:26→21:01)
[2022-04-27] MEDS: FLUCONAZOLE 200MG/100ML 100 ML IV SCH (09:26)
[2022-04-27] MEDS: AMIODARONE HCL 200 MG TAB PO SCH ×2 (09:32→21:01)
[2022-04-27] MEDS: ACETYLCYSTEINE 20%(200MG/ML) SOL 4ML NEB SCH ×3 (09:35→22:17)
[2022-04-27] MEDS: PANTOPRAZOLE 40 MG TAB PO SCH ×2 (09:38→21:00)
[2022-04-27] MEDS: METOCLOPRAMIDE HCL 5MG/ml INJ 2ml VIAL IV SCH ×2 (09:38→21:01)
[2022-04-27] MEDS: fentaNYL Drip 2500mCg/250mlNS 250 ML IV SCH (20:47)
[2022-04-28] VITALS (34 sets, daily range): BP systolic 106–150; BP diastolic 34–66
[2022-04-28] MEDS: SUCRALFATE 1 GM/10 ML ORAL SUSP PO SCH ×4 (05:49→21:11)
[2022-04-28 06:06] LABS: Basophils # (auto) 0 10 ^3/uL (0-0.2); Eosinophils # (auto) 0.1 10 ^3/uL (0-0.8); Hemoglobin 7.9 g/dL (13.5-17.5); Lymphocytes # (auto) 0.7 10 ^3/uL (0.4-5.4); Monocytes # (auto) 0.3 10 ^3/uL (0-1.3); Neutrophils # (auto) 2.2 10 ^3/uL (1.6-8.6); Nucleated Red Blood Cells % 0.1 %
[2022-04-28 06:09] LABS: Eosinophils % (auto) 2.6 % (0.0-7.0); Hematocrit 23.7 % (41.0-53.0); Lymphocytes % (auto) 20.4 % (10.0-50.0); Mean Corpuscular Hgb Conc. 33.3 g/dL (32.0-36.0); Mean Corpuscular Volume 96.1 fL (80.0-100.0); Monocytes % (auto) 9.9 % (0.0-12.0); Neutrophils % (auto) 66.1 % (37.0-80.0); Red Blood Cells 2.47 10^6/uL (4.5-5.90); White Blood Cell 3.4 10^3/uL (4.4-10.8)
[2022-04-28 06:13] LABS: BUN/Creatinine Ratio 30.8; Calcium 7.9 mg/dL (8.5-10.1); Potassium 3.8 mmol/L (3.5-5.1)
[2022-04-28] MEDS: ACETYLCYSTEINE 20%(200MG/ML) SOL 4ML NEB SCH ×3 (06:16→22:23)
[2022-04-28] MEDS: ALBUTEROL SULF 2.5 MG/0.5ML(0.5%) NEB SOLN NEB SCH ×5 (06:16→22:15)
[2022-04-28] MEDS: PANTOPRAZOLE 40 MG TAB PO SCH ×2 (09:56→21:12)
[2022-04-28] MEDS: METOCLOPRAMIDE HCL 5MG/ml INJ 2ml VIAL IV SCH ×2 (10:07→21:12)
[2022-04-28] MEDS: levoFLOXacin 500MG 100 ML IV SCH (10:07)
[2022-04-28] MEDS: FLUCONAZOLE 200MG/100ML 100 ML IV SCH (10:07)
[2022-04-28] MEDS: DIGOXIN 0.125 MG TAB PO SCH (10:08)
[2022-04-28] MEDS: HYDROCORTISONE SOD SUCC 100 MG/2ML INJ VIAL IV SCH ×2 (10:08→21:12)
[2022-04-28] MEDS: ENOXAPARIN SOD 100 MG/1 ML SYRINGE SC SCH (10:09)
[2022-04-28] MEDS: AMIODARONE HCL 200 MG TAB PO SCH ×2 (10:09→21:12)
[2022-04-28] MEDS ORDERED: FUROSEMIDE 20 MG/2 ML VIAL IV ONE (15:30)
[2022-04-28] MEDS ORDERED: FERROUS SULFATE 300 MG/5 ML ORAL LIQ GT ONE (15:30)
[2022-04-28] MEDS ORDERED: ALBUMIN 5% 250 ML IV ONE (15:30)
[2022-04-28] MEDS: FERROUS SULFATE 300 MG/5 ML ORAL LIQ GT SCH (21:12)
[2022-04-29] VITALS (24 sets, daily range): BP systolic 135–160; BP diastolic 38–64
[2022-04-29] MEDS: ALBUTEROL SULF 2.5 MG/0.5ML(0.5%) NEB SOLN NEB SCH ×6 (02:52→21:58)
[2022-04-29 04:31] LABS: Potassium 3.7 mmol/L (3.5-5.1)
[2022-04-29 04:34] LABS: BUN/Creatinine Ratio 29.5
[2022-04-29] MEDS: ACETYLCYSTEINE 20%(200MG/ML) SOL 4ML NEB SCH ×3 (05:50→18:34)
[2022-04-29] MEDS: SUCRALFATE 1 GM/10 ML ORAL SUSP PO SCH ×4 (06:05→21:42)
[2022-04-29] MEDS: FLUCONAZOLE 200MG/100ML 100 ML IV SCH (09:43)
[2022-04-29] MEDS: HYDROCORTISONE SOD SUCC 100 MG/2ML INJ VIAL IV SCH ×2 (09:45→21:42)
[2022-04-29] MEDS: METOCLOPRAMIDE HCL 5MG/ml INJ 2ml VIAL IV SCH ×2 (09:48→21:42)
[2022-04-29] MEDS: PANTOPRAZOLE 40 MG TAB PO SCH ×2 (09:50→21:42)
[2022-04-29] MEDS: levoFLOXacin 500MG 100 ML IV SCH (09:51)
[2022-04-29] MEDS: FERROUS SULFATE 300 MG/5 ML ORAL LIQ GT SCH ×2 (09:51→21:41)
[2022-04-29] MEDS: ENOXAPARIN SOD 100 MG/1 ML SYRINGE SC SCH (09:51)
[2022-04-29] MEDS: AMIODARONE HCL 200 MG TAB PO SCH ×2 (10:10→21:43)
[2022-04-29] MEDS: D5W 5% 1,000 ML IV SCH (17:12)
[2022-04-30] VITALS (23 sets, daily range): BP systolic 139–161; BP diastolic 41–73
[2022-04-30] MEDS: ALBUTEROL SULF 2.5 MG/0.5ML(0.5%) NEB SOLN NEB SCH ×6 (02:56→22:00)
[2022-04-30] MEDS: D5W 5% 1,000 ML IV SCH ×2 (04:59→09:30)
[2022-04-30] MEDS: SUCRALFATE 1 GM/10 ML ORAL SUSP PO SCH ×4 (06:13→21:17)
[2022-04-30] MEDS ORDERED: ENOXAPARIN SOD 100 MG/1 ML SYRINGE SC SCH (10:00)
[2022-04-30] MEDS: DIGOXIN 0.125 MG TAB PO SCH (10:00)
[2022-04-30] MEDS: FLUCONAZOLE 200MG/100ML 100 ML IV SCH (10:03)
[2022-04-30] MEDS: levoFLOXacin 500MG 100 ML IV SCH (10:03)
[2022-04-30] MEDS: PANTOPRAZOLE 40 MG TAB PO SCH ×2 (10:04→21:17)
[2022-04-30] MEDS: METOCLOPRAMIDE HCL 5MG/ml INJ 2ml VIAL IV SCH ×2 (10:05→21:16)
[2022-04-30] MEDS: HYDROCORTISONE SOD SUCC 100 MG/2ML INJ VIAL IV SCH ×2 (10:05→21:17)
[2022-04-30] MEDS: FERROUS SULFATE 300 MG/5 ML ORAL LIQ GT SCH ×2 (10:05→21:17)
[2022-04-30] MEDS: ENOXAPARIN SOD 40 MG/0.4 ML SYRINGE SC SCH (10:14)
[2022-04-30] MEDS: AMIODARONE HCL 200 MG TAB PO SCH ×2 (10:15→21:19)
[2022-04-30] MEDS ORDERED: FUROSEMIDE 40 MG/4 ML VIAL IV ONE (11:30)
[2022-04-30] MEDS: ACETYLCYSTEINE 20%(200MG/ML) SOL 4ML NEB SCH ×3 (11:30→22:00)
[2022-05-01] VITALS (24 sets, daily range): BP systolic 147–175; BP diastolic 49–76
[2022-05-01] MEDS: ALBUTEROL SULF 2.5 MG/0.5ML(0.5%) NEB SOLN NEB SCH ×6 (02:09→22:19)
[2022-05-01 04:08] LABS: Basophils # (auto) 0.1 10 ^3/uL (0-0.2); Basophils % (auto) 2.5 % (0.0-2.0); Eosinophils # (auto) 0 10 ^3/uL (0-0.8); Eosinophils % (auto) 0.5 % (0.0-7.0); Hematocrit 25.9 % (41.0-53.0); Hemoglobin 8.8 g/dL (13.5-17.5); Lymphocytes # (auto) 0.4 10 ^3/uL (0.4-5.4); Lymphocytes % (auto) 11.2 % (10.0-50.0); Mean Corpuscular Hemoglobin 32.1 pg (28.0-32.0); Mean Corpuscular Volume 94.5 fL (80.0-100.0); Monocytes # (auto) 0.2 10 ^3/uL (0-1.3); Monocytes % (auto) 4.6 % (0.0-12.0); Neutrophils # (auto) 3.2 10 ^3/uL (1.6-8.6); Neutrophils % (auto) 81.2 % (37.0-80.0); Nucleated Red Blood Cells % 0.1 %; Red Blood Cells 2.74 10^6/uL (4.5-5.90); White Blood Cell 3.9 10^3/uL (4.4-10.8)
[2022-05-01 04:28] LABS: Albumin 1.8 g/dL (3.4-5.0); Calcium 7.1 mg/dL (8.5-10.1); Potassium 3.6 mmol/L (3.5-5.1)
[2022-05-01 04:32] LABS: BUN/Creatinine Ratio 29.6; Bilirubin, Total 0.5 mg/dL (0.2-1.0); Total Protein 4.5 g/dL (6.4-8.2)
[2022-05-01] MEDS: SUCRALFATE 1 GM/10 ML ORAL SUSP PO SCH ×4 (05:42→21:54)
[2022-05-01] MEDS: ACETYLCYSTEINE 20%(200MG/ML) SOL 4ML NEB SCH ×3 (07:32→22:20)
[2022-05-01] MEDS: ENOXAPARIN SOD 40 MG/0.4 ML SYRINGE SC SCH (09:57)
[2022-05-01] MEDS: levoFLOXacin 500MG 100 ML IV SCH (09:57)
[2022-05-01] MEDS: FERROUS SULFATE 300 MG/5 ML ORAL LIQ GT SCH ×2 (09:57→21:54)
[2022-05-01] MEDS: FLUCONAZOLE 200MG/100ML 100 ML IV SCH (09:57)
[2022-05-01] MEDS: METOCLOPRAMIDE HCL 5MG/ml INJ 2ml VIAL IV SCH ×2 (09:58→21:54)
[2022-05-01] MEDS: PANTOPRAZOLE 40 MG TAB PO SCH ×2 (09:58→21:54)
[2022-05-01] MEDS: AMIODARONE HCL 200 MG TAB PO SCH (09:59)
[2022-05-01] MEDS: HYDROCORTISONE SOD SUCC 100 MG/2ML INJ VIAL IV SCH (09:59)
[2022-05-01] MEDS ORDERED: hydrALAZINE HCL 20 MG/ML VL IV PRN (13:30)
[2022-05-01] MEDS ORDERED: amLODIPine BESYLATE 5 MG TAB PO ONE (15:15)
[2022-05-01] MEDS ORDERED: FUROSEMIDE 40 MG TAB PO ONE (15:15)
[2022-05-01] MEDS: HYDROCORTISONE 10 MG TAB PO SCH (22:01)
[2022-05-02] VITALS (24 sets, daily range): BP systolic 94–170; BP diastolic 46–80
[2022-05-02] MEDS: ALBUTEROL SULF 2.5 MG/0.5ML(0.5%) NEB SOLN NEB SCH ×6 (02:00→22:43)
[2022-05-02] MEDS: MORPHINE SULFATE INJ 2 MG/ml SYRG IV PRN (02:48)
[2022-05-02 04:22] LABS: Calcium 7.6 mg/dL (8.5-10.1); Potassium 3.3 mmol/L (3.5-5.1)
[2022-05-02 04:24] LABS: BUN/Creatinine Ratio 29.6
[2022-05-02] MEDS: SUCRALFATE 1 GM/10 ML ORAL SUSP PO SCH ×4 (05:35→21:57)
[2022-05-02] MEDS: ACETYLCYSTEINE 20%(200MG/ML) SOL 4ML NEB SCH ×3 (06:03→22:43)
[2022-05-02] MEDS ORDERED: POTASSIUM EFFERVESENT TAB 25 MEQ GT ONE (09:30)
[2022-05-02] MEDS: POTASSIUM EFFERVESENT TAB 25 MEQ GT SCH (09:51)
[2022-05-02] MEDS: FERROUS SULFATE 300 MG/5 ML ORAL LIQ GT SCH ×2 (09:52→21:57)
[2022-05-02] MEDS: amLODIPine BESYLATE 5 MG TAB PO SCH (09:53)
[2022-05-02] MEDS: PANTOPRAZOLE 40 MG TAB PO SCH ×2 (09:54→21:57)
[2022-05-02] MEDS: AMIODARONE HCL 200 MG TAB PO SCH (09:54)
[2022-05-02] MEDS: METOCLOPRAMIDE HCL 5MG/ml INJ 2ml VIAL IV SCH ×2 (09:54→21:56)
[2022-05-02] MEDS: FLUCONAZOLE 200MG/100ML 100 ML IV SCH (09:55)
[2022-05-02] MEDS: levoFLOXacin 500MG 100 ML IV SCH (09:55)
[2022-05-02] MEDS: FUROSEMIDE 40 MG TAB PO SCH (09:55)
[2022-05-02] MEDS: ENOXAPARIN SOD 40 MG/0.4 ML SYRINGE SC SCH (09:55)
[2022-05-02] MEDS: HYDROCORTISONE 10 MG TAB PO SCH ×2 (13:57→21:57)
[2022-05-02] MEDS ORDERED: LACTULOSE 20Gm/30ML SOLN PO ONE (14:30)
[2022-05-02] MEDS: LACTULOSE 20Gm/30ML SOLN PO SCH (21:57)
[2022-05-03] VITALS (21 sets, daily range): BP systolic 138–163; BP diastolic 55–69
[2022-05-03] MEDS: ALBUTEROL SULF 2.5 MG/0.5ML(0.5%) NEB SOLN NEB SCH ×6 (02:24→22:20)
[2022-05-03 04:07] LABS: Basophils # (auto) 0.1 10 ^3/uL (0-0.2); Basophils % (auto) 1.3 % (0.0-2.0); Eosinophils # (auto) 0.2 10 ^3/uL (0-0.8); Eosinophils % (auto) 3.1 % (0.0-7.0); Hematocrit 26.9 % (41.0-53.0); Hemoglobin 9.4 g/dL (13.5-17.5); Lymphocytes # (auto) 1.1 10 ^3/uL (0.4-5.4); Mean Corpuscular Hemoglobin 32.3 pg (28.0-32.0); Mean Corpuscular Hgb Conc. 34.8 g/dL (32.0-36.0); Mean Corpuscular Volume 92.9 fL (80.0-100.0); Monocytes # (auto) 0.7 10 ^3/uL (0-1.3); Monocytes % (auto) 13.4 % (0.0-12.0); Neutrophils # (auto) 3.3 10 ^3/uL (1.6-8.6); Neutrophils % (auto) 62.2 % (37.0-80.0); Nucleated Red Blood Cells % 0.2 %; Red Cell Distribution Width 16.1 % (11.8-14.3); White Blood Cell 5.4 10^3/uL (4.4-10.8)
[2022-05-03 04:25] LABS: BUN/Creatinine Ratio 28.2; Calcium 7.5 mg/dL (8.5-10.1); Potassium 3.5 mmol/L (3.5-5.1)
[2022-05-03] MEDS: ACETYLCYSTEINE 20%(200MG/ML) SOL 4ML NEB SCH ×3 (06:28→22:20)
[2022-05-03] MEDS: LACTULOSE 20Gm/30ML SOLN PO SCH ×2 (08:27→22:00)
[2022-05-03] MEDS: SUCRALFATE 1 GM/10 ML ORAL SUSP PO SCH ×4 (08:51→21:58)
[2022-05-03] MEDS: FERROUS SULFATE 300 MG/5 ML ORAL LIQ GT SCH ×2 (08:51→21:58)
[2022-05-03] MEDS: METOCLOPRAMIDE HCL 5MG/ml INJ 2ml VIAL IV SCH ×2 (08:51→21:58)
[2022-05-03] MEDS: ENOXAPARIN SOD 40 MG/0.4 ML SYRINGE SC SCH (08:51)
[2022-05-03] MEDS: amLODIPine BESYLATE 5 MG TAB PO SCH (08:52)
[2022-05-03] MEDS: FUROSEMIDE 40 MG TAB PO SCH (08:52)
[2022-05-03] MEDS: PANTOPRAZOLE 40 MG TAB PO SCH ×2 (08:52→22:00)
[2022-05-03] MEDS: levoFLOXacin 500MG 100 ML IV SCH (08:53)
[2022-05-03] MEDS: AMIODARONE HCL 200 MG TAB PO SCH (08:53)
[2022-05-03] MEDS: FLUCONAZOLE 200MG/100ML 100 ML IV SCH (08:54)
[2022-05-03] MEDS: POTASSIUM EFFERVESENT TAB 25 MEQ GT SCH (08:54)
[2022-05-03] MEDS: HYDROCORTISONE 10 MG TAB PO SCH ×2 (09:19→21:59)
[2022-05-03] MEDS: MORPHINE SULFATE INJ 2 MG/ml SYRG IV PRN (19:37)
[2022-05-04] VITALS (24 sets, daily range): BP systolic 124–156; BP diastolic 55–64
[2022-05-04] MEDS: ALBUTEROL SULF 2.5 MG/0.5ML(0.5%) NEB SOLN NEB SCH ×7 (01:41→22:23)
[2022-05-04 04:32] LABS: Basophils # (auto) 0.1 10 ^3/uL (0-0.2); Basophils % (auto) 1.1 % (0.0-2.0); Eosinophils # (auto) 0.2 10 ^3/uL (0-0.8); Hematocrit 26.8 % (41.0-53.0); Lymphocytes # (auto) 1.3 10 ^3/uL (0.4-5.4); Lymphocytes % (auto) 21.5 % (10.0-50.0); Mean Corpuscular Hemoglobin 31.6 pg (28.0-32.0); Mean Corpuscular Hgb Conc. 33.6 g/dL (32.0-36.0); Mean Corpuscular Volume 94.1 fL (80.0-100.0); Monocytes # (auto) 0.9 10 ^3/uL (0-1.3); Monocytes % (auto) 14.5 % (0.0-12.0); Neutrophils # (auto) 3.7 10 ^3/uL (1.6-8.6); Neutrophils % (auto) 59.9 % (37.0-80.0); Nucleated Red Blood Cells % 0.3 %; Red Blood Cells 2.85 10^6/uL (4.5-5.90); Red Cell Distribution Width 16.6 % (11.8-14.3); White Blood Cell 6.1 10^3/uL (4.4-10.8)
[2022-05-04 04:35] LABS: BUN/Creatinine Ratio 25.2; Calcium 7.5 mg/dL (8.5-10.1); Potassium 3.6 mmol/L (3.5-5.1)
[2022-05-04] MEDS: MORPHINE SULFATE INJ 2 MG/ml SYRG IV PRN ×4 (04:42→22:33)
[2022-05-04] MEDS: ACETYLCYSTEINE 20%(200MG/ML) SOL 4ML NEB SCH ×3 (06:11→22:23)
[2022-05-04] MEDS: SUCRALFATE 1 GM/10 ML ORAL SUSP PO SCH ×4 (06:24→22:00)
[2022-05-04] MEDS: FERROUS SULFATE 300 MG/5 ML ORAL LIQ GT SCH ×2 (09:31→21:27)
[2022-05-04] MEDS: FLUCONAZOLE 200MG/100ML 100 ML IV SCH (09:32)
[2022-05-04] MEDS: POTASSIUM EFFERVESENT TAB 25 MEQ GT SCH (09:32)
[2022-05-04] MEDS: levoFLOXacin 500MG 100 ML IV SCH (09:33)
[2022-05-04] MEDS: METOCLOPRAMIDE HCL 5MG/ml INJ 2ml VIAL IV SCH ×2 (09:33→21:27)
[2022-05-04] MEDS: AMIODARONE HCL 200 MG TAB PO SCH (09:33)
[2022-05-04] MEDS: FUROSEMIDE 40 MG TAB PO SCH (09:34)
[2022-05-04] MEDS: PANTOPRAZOLE 40 MG TAB PO SCH ×2 (09:35→21:27)
[2022-05-04] MEDS: ENOXAPARIN SOD 40 MG/0.4 ML SYRINGE SC SCH (09:35)
[2022-05-04] MEDS: amLODIPine BESYLATE 5 MG TAB PO SCH (09:35)
[2022-05-04] MEDS: LACTULOSE 20Gm/30ML SOLN PO SCH ×2 (09:40→22:00)
[2022-05-04] MEDS: HYDROCORTISONE 10 MG TAB PO SCH ×2 (09:40→22:31)
[2022-05-04] MEDS: Jevity 1.2 Cal/Fiber 1 Liter GT SCH (10:14)
[2022-05-05] VITALS (23 sets, daily range): BP systolic 125–150; BP diastolic 43–77
[2022-05-05] MEDS: ALBUTEROL SULF 2.5 MG/0.5ML(0.5%) NEB SOLN NEB SCH ×6 (02:16→22:13)
[2022-05-05] MEDS: ACETYLCYSTEINE 20%(200MG/ML) SOL 4ML NEB SCH ×3 (06:58→22:14)
[2022-05-05] MEDS: levoFLOXacin 500MG 100 ML IV SCH (10:09)
[2022-05-05] MEDS: POTASSIUM EFFERVESENT TAB 25 MEQ GT SCH (10:09)
[2022-05-05] MEDS: METOCLOPRAMIDE HCL 5MG/ml INJ 2ml VIAL IV SCH ×2 (10:09→22:47)
[2022-05-05] MEDS: LACTULOSE 20Gm/30ML SOLN PO SCH ×3 (10:10→22:45)
[2022-05-05] MEDS: HYDROCORTISONE 10 MG TAB PO SCH ×2 (10:10→22:47)
[2022-05-05] MEDS: FERROUS SULFATE 300 MG/5 ML ORAL LIQ GT SCH ×2 (10:10→22:45)
[2022-05-05] MEDS: amLODIPine BESYLATE 5 MG TAB PO SCH (10:11)
[2022-05-05] MEDS: FUROSEMIDE 40 MG TAB PO SCH (10:11)
[2022-05-05] MEDS: ENOXAPARIN SOD 40 MG/0.4 ML SYRINGE SC SCH (10:12)
[2022-05-05] MEDS: PANTOPRAZOLE 40 MG TAB PO SCH ×2 (10:12→22:46)
[2022-05-05] MEDS: AMIODARONE HCL 200 MG TAB PO SCH (10:13)
[2022-05-05] MEDS: MORPHINE SULFATE INJ 2 MG/ml SYRG IV PRN ×2 (10:30→17:17)
[2022-05-05] MEDS: SUCRALFATE 1 GM/10 ML ORAL SUSP PO SCH ×4 (13:09→22:46)
[2022-05-06] VITALS (26 sets, daily range): BP systolic 119–143; BP diastolic 34–71
[2022-05-06] MEDS: MORPHINE SULFATE INJ 2 MG/ml SYRG IV PRN ×2 (02:25→22:22)
[2022-05-06] MEDS: ALBUTEROL SULF 2.5 MG/0.5ML(0.5%) NEB SOLN NEB SCH ×6 (02:31→22:26)
[2022-05-06] MEDS: ACETYLCYSTEINE 20%(200MG/ML) SOL 4ML NEB SCH ×3 (06:39→18:36)
[2022-05-06] MEDS: SUCRALFATE 1 GM/10 ML ORAL SUSP PO SCH ×4 (07:44→22:00)
[2022-05-06] MEDS: Jevity 1.2 Cal/Fiber 1 Liter GT SCH (09:56)
[2022-05-06] MEDS: LACTULOSE 20Gm/30ML SOLN PO SCH ×2 (10:00→23:28)
[2022-05-06] MEDS: FERROUS SULFATE 300 MG/5 ML ORAL LIQ GT SCH ×2 (10:01→22:00)
[2022-05-06] MEDS: METOCLOPRAMIDE HCL 5MG/ml INJ 2ml VIAL IV SCH ×2 (10:02→22:00)
[2022-05-06] MEDS: amLODIPine BESYLATE 5 MG TAB PO SCH (10:03)
[2022-05-06] MEDS: FUROSEMIDE 40 MG TAB PO SCH (10:04)
[2022-05-06] MEDS: PANTOPRAZOLE 40 MG TAB PO SCH ×2 (10:04→22:00)
[2022-05-06] MEDS: AMIODARONE HCL 200 MG TAB PO SCH (10:04)
[2022-05-06] MEDS: ENOXAPARIN SOD 40 MG/0.4 ML SYRINGE SC SCH (10:05)
[2022-05-06] MEDS: POTASSIUM EFFERVESENT TAB 25 MEQ GT SCH (10:09)
[2022-05-06] MEDS: HYDROCORTISONE 10 MG TAB PO SCH ×2 (12:32→22:00)
[2022-05-07] VITALS (21 sets, daily range): BP systolic 113–151; BP diastolic 34–70
[2022-05-07] MEDS: ALBUTEROL SULF 2.5 MG/0.5ML(0.5%) NEB SOLN NEB SCH ×6 (02:21→21:41)
[2022-05-07] MEDS: MORPHINE SULFATE INJ 2 MG/ml SYRG IV PRN ×4 (03:08→18:36)
[2022-05-07] MEDS: ACETYLCYSTEINE 20%(200MG/ML) SOL 4ML NEB SCH ×3 (06:40→18:32)
[2022-05-07] MEDS: SUCRALFATE 1 GM/10 ML ORAL SUSP PO SCH ×4 (07:00→22:09)
[2022-05-07] MEDS: Jevity 1.2 Cal/Fiber 1 Liter GT SCH (08:25)
[2022-05-07] MEDS: LACTULOSE 20Gm/30ML SOLN PO SCH ×2 (10:00→22:00)
[2022-05-07 10:03] LABS: Hematocrit 26.8 % (41.0-53.0); Hemoglobin 9.1 g/dL (13.5-17.5); Mean Corpuscular Hgb Conc. 33.8 g/dL (32.0-36.0); Mean Corpuscular Volume 94.5 fL (80.0-100.0); Red Blood Cells 2.83 10^6/uL (4.5-5.90); Red Cell Distribution Width 16.6 % (11.8-14.3); White Blood Cell 7.2 10^3/uL (4.4-10.8)
[2022-05-07 10:22] LABS: Basophils % (manual) 0 (0.0-2.0); Blast Cells 0; Promyelocytes % 0; Reactive Lymphocytes 0
[2022-05-07 10:23] LABS: Calcium 7.9 mg/dL (8.5-10.1); Potassium 4.4 mmol/L (3.5-5.1)
[2022-05-07] MEDS: METOCLOPRAMIDE HCL 5MG/ml INJ 2ml VIAL IV SCH ×2 (10:37→22:11)
[2022-05-07] MEDS: ENOXAPARIN SOD 40 MG/0.4 ML SYRINGE SC SCH (10:38)
[2022-05-07] MEDS: FERROUS SULFATE 300 MG/5 ML ORAL LIQ GT SCH ×2 (10:38→22:09)
[2022-05-07] MEDS: FUROSEMIDE 40 MG TAB PO SCH (10:39)
[2022-05-07] MEDS: amLODIPine BESYLATE 5 MG TAB PO SCH (10:39)
[2022-05-07] MEDS: POTASSIUM EFFERVESENT TAB 25 MEQ GT SCH (10:40)
[2022-05-07] MEDS: AMIODARONE HCL 200 MG TAB PO SCH (10:40)
[2022-05-07] MEDS: PANTOPRAZOLE 40 MG TAB PO SCH ×2 (10:40→22:12)
[2022-05-07] MEDS: HYDROCORTISONE 10 MG TAB PO SCH ×2 (10:45→22:09)
[2022-05-07 11:22] LABS: Band Neutrophils % (manual) 1; Eosinophils % (manual) 1 (0-7); Lymphocytes % (manual) 24 (10.0-50.0); Metamyelocytes % 1; Monocytes % (manual) 7 (0-12); Myelocytes % 1
[2022-05-07] MEDS ORDERED: HYDROcodone-ACET 5/325MG TAB PEG PRN (15:00)
[2022-05-07] MEDS ORDERED: MORPHINE SULFATE INJ 2 MG/ml SYRG IV ONE (15:00)
[2022-05-08] VITALS (23 sets, daily range): BP systolic 91–127; BP diastolic 45–72
[2022-05-08] MEDS: MORPHINE SULFATE INJ 2 MG/ml SYRG IV PRN ×2 (00:25→23:24)
[2022-05-08] MEDS: ALBUTEROL SULF 2.5 MG/0.5ML(0.5%) NEB SOLN NEB SCH ×6 (02:00→22:29)
[2022-05-08] MEDS: ACETYLCYSTEINE 20%(200MG/ML) SOL 4ML NEB SCH ×3 (06:29→22:29)
[2022-05-08] MEDS: SUCRALFATE 1 GM/10 ML ORAL SUSP PO SCH ×4 (07:25→22:00)
[2022-05-08] MEDS: FERROUS SULFATE 300 MG/5 ML ORAL LIQ GT SCH ×2 (09:21→22:00)
[2022-05-08] MEDS: ENOXAPARIN SOD 40 MG/0.4 ML SYRINGE SC SCH (09:21)
[2022-05-08] MEDS: LACTULOSE 20Gm/30ML SOLN PO SCH ×2 (09:22→22:00)
[2022-05-08] MEDS: POTASSIUM EFFERVESENT TAB 25 MEQ GT SCH (09:22)
[2022-05-08] MEDS: METOCLOPRAMIDE HCL 5MG/ml INJ 2ml VIAL IV SCH (09:22)
[2022-05-08] MEDS: AMIODARONE HCL 200 MG TAB PO SCH ×2 (09:23→22:00)
[2022-05-08] MEDS: PANTOPRAZOLE 40 MG TAB PO SCH ×2 (09:24→22:00)
[2022-05-08] MEDS: HYDROCORTISONE 10 MG TAB PO SCH ×2 (09:24→22:00)
[2022-05-08] MEDS: amLODIPine BESYLATE 5 MG TAB PO SCH (09:25)
[2022-05-08] MEDS: FUROSEMIDE 40 MG TAB PO SCH (09:29)
[2022-05-08] MEDS: Jevity 1.2 Cal/Fiber 1 Liter GT SCH (13:14)
[2022-05-09] VITALS (19 sets, daily range): BP systolic 94–125; BP diastolic 29–59
[2022-05-09] MEDS: ALBUTEROL SULF 2.5 MG/0.5ML(0.5%) NEB SOLN NEB SCH ×4 (02:25→14:04)
[2022-05-09 05:18] LABS: BUN/Creatinine Ratio 23.9; Calcium 8.1 mg/dL (8.5-10.1); Potassium 4.8 mmol/L (3.5-5.1)
[2022-05-09] MEDS: ACETYLCYSTEINE 20%(200MG/ML) SOL 4ML NEB SCH ×2 (06:44→14:04)
[2022-05-09] MEDS: SUCRALFATE 1 GM/10 ML ORAL SUSP PO SCH ×2 (07:00→12:39)
[2022-05-09] MEDS: LACTULOSE 20Gm/30ML SOLN PO SCH (09:35)
[2022-05-09] MEDS: POTASSIUM EFFERVESENT TAB 25 MEQ GT SCH (09:35)
[2022-05-09] MEDS: FERROUS SULFATE 300 MG/5 ML ORAL LIQ GT SCH (09:35)
[2022-05-09] MEDS: PANTOPRAZOLE 40 MG TAB PO SCH (09:36)
[2022-05-09] MEDS: amLODIPine BESYLATE 5 MG TAB PO SCH (09:36)
[2022-05-09] MEDS: AMIODARONE HCL 200 MG TAB PO SCH (09:36)
[2022-05-09] MEDS: HYDROCORTISONE 10 MG TAB PO SCH (09:37)
[2022-05-09] MEDS: ENOXAPARIN SOD 40 MG/0.4 ML SYRINGE SC SCH (09:38)
[2022-05-09] MEDS ORDERED: FUROSEMIDE 40 MG TAB PO SCH (10:00)
[2022-05-09] MEDS ORDERED: DIGOXIN (250MCG/ML) 2 ML AMPULE IV ONE (12:00)
[2022-05-10] MEDS ORDERED: DIGOXIN 0.125 MG TAB PO SCH (10:00)
[2022-05-10] MEDS ORDERED: PANTOPRAZOLE 40 MG TAB PO SCH (10:00)
== END 2022-05-09 20:39 | DRG 4 ==
LOC: EDBD 07:27 → ER 07:27 → TELE 16:45 → ICU WEST 03-23 07:23 → DOU IN ICU 05-06 02:04
PROVIDERS: ADMIT Hospitalist; ATTEND Internal Medicine
PROC: 5A1955Z Respiratory Ventilation, Greater than 96 Consecutive Hours (ICD-10-PCS; principal; 2022-03-22)
PROC: 0BH17EZ Insertion of Endotracheal Airway into Trachea, Via Natural or Artificial Opening (ICD-10-PCS; 2022-03-22)
PROC: 02HV33Z Insertion of Infusion Device into Superior Vena Cava, Percutaneous Approach (ICD-10-PCS; 2022-03-23)
PROC: 03HY32Z Insertion of Monitoring Device into Upper Artery, Percutaneous Approach (ICD-10-PCS; 2022-03-23)
PROC: 30233K1 Transfusion of Nonautologous Frozen Plasma into Peripheral Vein, Percutaneous Approach (ICD-10-PCS; 2022-03-28)
PROC: 0DJ08ZZ Inspection of Upper Intestinal Tract, Via Natural or Artificial Opening Endoscopic (ICD-10-PCS; 2022-03-29)
PROC: 30233N1 Transfusion of Nonautologous Red Blood Cells into Peripheral Vein, Percutaneous Approach (ICD-10-PCS; 2022-04-04)
PROC: 0B9B8ZZ Drainage of Left Lower Lobe Bronchus, Via Natural or Artificial Opening Endoscopic (ICD-10-PCS; 2022-04-05)
PROC: 0B9B8ZZ Drainage of Left Lower Lobe Bronchus, Via Natural or Artificial Opening Endoscopic (ICD-10-PCS; 2022-04-06)
PROC: 0B110F4 Bypass Trachea to Cutaneous with Tracheostomy Device, Open Approach (ICD-10-PCS; 2022-04-12)
PROC: 0DH63UZ Insertion of Feeding Device into Stomach, Percutaneous Approach (ICD-10-PCS; 2022-04-20)
DX: A41.59 Other Gram-negative sepsis (principal); E43 Unspecified severe protein-calorie malnutrition; K31.811 Angiodysplasia of stomach and duodenum with bleeding; N17.0 Acute kidney failure with tubular necrosis; R57.1 Hypovolemic shock; R65.21 Severe sepsis with septic shock; J15.0 Pneumonia due to Klebsiella pneumoniae; J96.01 Acute respiratory failure with hypoxia; K26.4 Chronic or unspecified duodenal ulcer with hemorrhage; I50.41 Acute combined systolic (congestive) and diastolic (congestive) heart failure; N18.6 End stage renal disease; K29.71 Gastritis, unspecified, with bleeding; I21.A1 Myocardial infarction type 2; D68.9 Coagulation defect, unspecified; I13.2 Hypertensive heart and chronic kidney disease with heart failure and with stage 5 chronic kidney disease, or end stage renal disease; E87.2 Acidosis; I47.2 Ventricular tachycardia; D68.69 Other thrombophilia; E27.40 Unspecified adrenocortical insufficiency; Z99.11 Dependence on respirator [ventilator] status; E87.0 Hyperosmolality and hypernatremia; E66.9 Obesity, unspecified; E78.5 Hyperlipidemia, unspecified; E83.39 Other disorders of phosphorus metabolism; E83.42 Hypomagnesemia; Z20.822 Contact with and (suspected) exposure to COVID-19; E83.51 Hypocalcemia; E87.5 Hyperkalemia; E87.6 Hypokalemia; I48.91 Unspecified atrial fibrillation; K52.9 Noninfective gastroenteritis and colitis, unspecified; K26.9 Duodenal ulcer, unspecified as acute or chronic, without hemorrhage or perforation; D64.9 Anemia, unspecified; E88.09 Other disorders of plasma-protein metabolism, not elsewhere classified; K21.00 Gastro-esophageal reflux disease with esophagitis, without bleeding; R13.10 Dysphagia, unspecified; I70.208 Unspecified atherosclerosis of native arteries of extremities, other extremity; Z90.49 Acquired absence of other specified parts of digestive tract; Z68.31 Body mass index [BMI] 31.0-31.9, adult
CPT/HCPCS: 31622; 31720; 36415; 36569; 36600; 43235; 43246; 71045; 74177; 74250; 76604; 80048; 80053; 80061; 80069; 80162; 80202; 80307; 81001; 82040; 82270; 82533; 82550; 82570; 82728; 82805; 82962; 83036; 83605; 83615; 83690; 83735; 83880; 83970; 84100; 84132; 84156; 84300; 84443; 84478; 84484; 84550; 85007; 85014; 85018; 85025; 85027; 85379; 85610; 85652; 85730; 86141; 86850; 86900; 86901; 86920; 87040; 87070; 87077; 87081; 87086; 87186; 87205; 93005; 93306; 93971; 94002; 94003; 94640; 94644; 94660; 96361; 96365; 96367; 96375; 96376; 97110; 97116; 97163; 97530; 99291; A4605; C9113; G0378; J0171; J0330; J1100; J1450; J1815; J1956; J2185; J2248; J2250; J2543; J2704; J3430; J3480; J7042; J7060